=== PATIENT | female | born 1985 | race Caucasian/White ===

== ENCOUNTER 2025-09-05 06:48 | Day surgery (SDC) | payer MEDICAID, SELFPAY ==
[2025-09-05] VITALS (9 sets, daily range): BP systolic 115–142; BP diastolic 53–126; PULSE 68–82; RESP 16; TEMP 36.4–36.8; O2SAT 95–99; BMI 51.2
--- OUTSIDE RECORDS SUMMARY | 2025-09-05 06:56 | XMS RPT_ITS | CCD ---
Author Organization [facility] ion Partnership [facility] Care Team Providers Care Principal Technical Writer Name Role Phone LANE SNOW Admitting Unavailable ELMER CHERRY MD Consulting Unavailable LANE SNOW Attending Unavailable LANE SNOW Primary Care Unavailable PROVIDER, UNKNOWN Consulting Unavailable PROVIDER, UNKNOWN Consulting Unavailable PROVIDER, UNKNOWN Consulting Unavailable Efrem Cherry Primary Care Provider [phone] Efrem Cherry MD Primary Care Provider MISC, PHYSICIAN Attending Unavailable MISC, PHYSICIAN Attending Unavailable MISC, PHYSICIAN Attending Unavailable CAMKLEMAN, TEODORA R Attending Unavailable WINKLEMAN, TEODORA Attending Unavailable CHERRY, ELMER J Referring Unavailable CHERRY, ELMER J Primary Care Unavailable WINKLEMAN, TEODORA Attending Unavailable CHERRY, ELMER J Referring Unavailable CHERRY, ELMER J Primary Care Unavailable WINKLEMAN, TEODORA Attending Unavailable CHERRY, ELMER J Referring Unavailable CHERRY, ELMER J Primary Care Unavailable WINKLEMAN, TEODORA Admitting Unavailable WINKLEMAN, TEODORA Attending Unavailable WINKLEMAN, TEODORA Referring Unavailable CHERRY, ELMER J Primary Care Unavailable WINKLEMAN, TEODORA Attending Unavailable CHERRY, ELMER J Referring Unavailable CHERRY, ELMER J Primary Care Unavailable WINKLEMAN, TEODORA Attending Unavailable CHERRY, ELMER J Referring Unavailable CHERRY, ELMER J Primary Care Unavailable WINKLEMAN, TEODORA Attending Unavailable CHERRY, ELMER J Referring Unavailable CHERRY, ELMER J Primary Care Unavailable WINKLEMAN, TEODORA Attending Unavailable CHERRY, EMLER J Referring Unavailable CHERRY, ELMER J Primary Care Unavailable LESLI HAMM Attending Unavailab LESLI Alcantara Attending Unavailab EFREM Damon Referring Unavailable EFREM CHERRY Primary Care Unavailable Unavailable Primary Care Provider Efrem Martinez MD Primary Care Provider Unavailable Primary Care Provider Unavailabl shayy GARCIA BALL MILL MIXER-C, TYRONE Malave Unavailable Unav ailable UROLOGY, GENERAL Unavailable Unavailable ENT, GENERAL Unavailable Unavailable PODIATRY, GENERAL Unavailable Unavailable [place] Unavailable Unavailable PULMONARY, GENERAL Unavailable Unavailable KRYSTYNA SINGH, Jon ACOSTA Unavailable [phone] Kamla CHERRY MD Unavailable ERICKSON ELI MD Unavailable Trent SPARKS, Chiquis Unavailable Unavailable Geeta David Unavailable Unavailable Leah Hobson Unavailable Unavailable CHRISTIAN MORLEY Unavailable Unavailable DL SPARKS, JOSHUA Unavailable Unavailable Dilip, Joy Blair Unavailable Unavailable SAMEER SAM Unavailable Unavailable DILIP BALL MILL MIXER-BC, ANDRY Webb Unavailable JOCE BALL MILL MIXER-C, STEFANI Unavailable [phone] Unavailable Unavailable DEBRA VENEGAS Referring Unavailable DEBRA VENEGAS Referring Unavailable LESLI HAMM Attending Unavailab Vivek Resendiz Primary Care Unavailable Fabrice Lindsay Referring Unavailable Fabrice Lindsay Attending Unavailable Medications Current Medications Medication Drug Class(es) Dates Sig (Normalized) Sig (Original) albuterol 0.21 mg/ml inhalation solution (20 sources) beta2-Adrenergic Agonist Start: 05-05-2024 End: 05-10-2025 take 1 dose by inhalation every six hours as needed for wheezing Albuterol Sulfate 0.63 mg/3 mL nebulizer solution Indications: Moderate persistent asthma without complication (HCC) INHALE 1 (ONE) vial via NEBULIZER EVERY 6 HOURS NEEDED FOR WHEEZING or SHORTNESS OF BREATH 300 mL 11 05/10/2025 Active Start: 05-05-2023 End: 02-24-2025 take 2 puff(s) by inhalation every six hours as needed for wheezing albuterol HFA (PROVENTIL HFA, VENTOLIN HFA) 90 mcg/actuation inhaler Indications: Moderate persistent asthma without complication (HCC) Inhale 2 Puffs as instructed every 6 hours as needed for wheezing/shortness of breath. 18 g 11 02/24/2025 Active Start: 05-05-2023 End: 05-05-2024 Albuterol Sulfate 0.63 mg/3 mL nebulizer solution Indications: Moderate persistent asthma without complication Use 1 Ampule via nebulizer every 6 hours as needed for wheezing/shortness of breath. 120 mL 05/05/2023 05/05/2024 Discontinued Start: 04-18-2023 End: 05-05-2023 Albuterol Sulfate 0.63 mg/3 mL nebulizer solution Indications: Moderate persistent asthma without complication use 1 vial via nebulizer every 4 hours as needed 150 mL 04/18/2023 05/05/2023 Discontinued Start: 04-18-2023 End: 05-05-2023 take 2 puff(s) by mouth every four hours as needed VENTOLIN HFA 90 mcg/actuation inhaler Indications: Moderate persistent asthma without complication INHALE 2 PUFFS BY MOUTH EVERY 4 HOURS as instructed NEEDED 18 g 04/18/2023 05/05/2023 Discontinued Start: 04-17-2022 take 2 puff(s) by in halation every four hours as needed albuterol HFA (VENTOLIN HFA) 90 mcg/actuation inhaler Indications: Moderate persistent asthma without complication Inhale 2 Puffs as instructed every 4 hours as needed. 18 g 04/17/2022 Active Start: 10-18-2021 End: 04-17-2023 Albuterol Sulfate 0.63 mg/3 mL nebulizer solution Indications: Moderate persistent asthma without complication Use 1 Ampule via nebulizer every 4 hours as needed. 120 mL 04/17/2022 04/17/2023 Active Start: 03-12-2021 Albuterol Sulf ate (2.5 MG/3ML) 0.083% Inhalation Nebulization Solution ; 1 (one) Ampule(s) every four hours, as needed for 30 days Quantity: 30 {Ampule} Refills: 1 Ordered: 12-Mar-2021 EMILY GARCIA Start: 12-Mar-2021 Comments: Medication taken as needed. Start: 03-06-2021 take 2 puff(s) by in halation every four hours as needed albuterol HFA (VENTOLIN HFA) 90 mcg/actuation inhaler Indications: Moderate persistent asthma without complication Inhale 2 Puffs as instructed every 4 hours as needed. 18 g 03/06/2021 Active Start: 02-01-2021 take 2 puff(s) by in halation every four hours as needed Ventolin HFA 108 (90 Base) MCG/ACT Inhalation Aerosol Solution ; 2 (two) Puff every 4 hours as needed for 30 days Quantity: 1 {Inhaler} Refills: 1 Ordered: 01-Feb-2021 CARMENCITAMACKEMILY SARAH TYRONE Malave Start: 01-Feb-2021 Comments: Medication taken as needed. Start: 09-01-2018 End: 10-01-2018 take 2 puff(s) by inhalation every four hours as needed ProAir HFA 108 (90 Base) MCG/ACT Inhalation Aerosol Solution ; 2 (two) Puff(s) every four hours, as needed for 30 days Quantity: 1 {Inhaler} Refills: 0 Ordered: 01-Sep-2018 MD Kamla CHERRY Start: 01-Sep-2018 End: 01-Oct-2018 Status: Inactive Comments: Medication taken as needed. Comment on above: Use 1 Ampule via neb ulizer every 4 hours as needed. Inhale 2 Puffs as in structed every 4 hours as needed. Inhale 2 Puffs as in structed every 6 hours as needed for wheezing/shortness of breath. Use 1 Ampule via neb ulizer every 6 hours as needed for wheezing/shortness of breath. INHALE 2 PUFFS BY MO UTH EVERY 4 HOURS as instructed NEEDED use 1 vial via nebul izer every 4 hours as needed Medication taken as needed. cetirizine hydrochloride 10 mg oral tablet (19 sources) Histamine-1 Receptor Antagonist Start: 3 End: 5 take 1 tablet by mouth once daily cetirizine (ZYRTEC) 10 mg tablet Indications: Allergic rhinitis, unspecified seasonality, unspecified trigger TAKE 1 TABLET BY MOUTH ONCE DAILY 30 tablet 05/10/2025 Active Start: 04-17-2022 take 1 tablet by tamara th once daily cetirizine (ZYRTEC) 10 mg tablet Indications: Allergic rhinitis, unspecified seasonality, unspecified trigger Take 1 tablet by mouth once daily. 30 tablet 04/17/2022 Active Comment on above: Take 1 tablet by tamara th once daily. TAKE 1 TABLET BY TAMARA TH ONCE DAILY fluticasone propionate 0.05 mg/actuat metered dose nasal spray (20 sources) Corticosteroid Start: 3 End: 4 take 1-2 spray(s) nasal route once daily fluticasone (FLONASE) 50 mcg/actuation nasal spray spray 1 to 2 sprays IN EACH NOSTRIL ONCE DAILY 16 g 11 05/05/2024 Active Start: 03-02-2019 End: 07-27-2019 take 2 puff(s) by inhalation twice daily Flovent HFA 110 MCG/ACT Inhalation Aerosol ; 2 (two) Puff Puff two times daily for 0 days Quantity: 1 {Inhaler} Refills: 2 Ordered: 27-Jul-2019 CLARE LIZAMA Start: 02-Mar-2019 End: 27-Jul-2019 Status: Inactive Comment on above: Use 1-2 Sprays in ea ch nostril once daily. fluticasone-umeclidi n-vilanter (TRELEGY ELLIPTA) 200-62.5-25 mcg inhalation powder (11 sources) Start: 5 take 1 puff(s) by inhalation once daily fluticasone-umeclidin -vilanter (TRELEGY ELLIPTA) 200-62.5-25 mcg inhalation powder Indications: Moderate persistent asthma without complication (HCC) Inhale 1 Puff as instructed once daily. 60 Each 02/24/2025 Active Start: 02-24-2025 take 1 puff(s) by inhalation once daily ofikejaeutx-ttkjivybk-hjjiylkz (TRELEGY ELLIPTA) 200-62.5-25 mcg inhalation powder Indications: Moderate persistent asthma without complication Inhale 1 Puff as instructed once daily. 60 Each 02/24/2025 Active Start: 06-15-2024 End: 02-24-2025 take 1 puff(s) by inhalation once daily hogsyckavza-czhdprgzp-cxnzmoan (TRELEGY ELLIPTA) 200-62.5-25 mcg inhalation powder Indications: Moderate persistent asthma without complication Inhale 1 Puff as instructed once daily. 60 Each 06/15/2024 02/24/2025 Discontinued Start: 06-15-2024 take 1 puff(s) by inhalation once daily pdeelaubrmn-gpattgjhg-dtlxqdek (TRELEGY ELLIPTA) 200-62.5-25 mcg inhalation powder Indications: Moderate persistent asthma without complication Inhale 1 Puff as instructed once daily. 60 Each 11 06/15/2024 Active 60 actuat formoterol fumarate 0.005 mg/actuat / mometasone furoate 0.2 mg/actuat metered dose inhaler (4 sources) Corticosteroid, beta2-Adrenergic Agonist Start: 10-18-2021 End: 10-18-2022 mometasone-formoterol (DULERA) 200-5 mcg/actuation inhaler Indications: Moderate persistent asthma without complication Inhale 2 Puffs as instructed twice daily. Rinse with water, gargle, and then expectorate after use. 17.6 g 11 10/18/2021 10/18/2022 Active Comment on above: Inhale 2 Puffs as in structed twice daily. Rinse with water, gargle, and then expectorate after use. methylPREDNISolone 4 mg oral tablet (9 sources) Corticosteroid Start: 03-01-2025 methylPREDNISolone (MEDROL DOSE-PACK) 4 mg Dose-Pack Indications: Moderate persistent asthma without complication (HCC) TAKE BY MOUTH DIRECTED ON PACKAGE 21 tablet 03/01/2025 Active Start: 02-24-2025 End: 03-02-2025 methylPREDNISolone (MEDROL, DESI,) 4 mg Dose-Pack Indications: Moderate persistent asthma without complication (HCC) Use orally as directed. 21 tablet 02/24/2025 03/01/2025 Discontinued montelukast 10 mg oral tablet (20 sources) Leukotriene Receptor Antagonist Start: 02-01-2021 End: 05-10-2025 take 1 tablet by mouth once daily as needed Singulair 10 mg oral tablet ; 1 (one) Tablet Tablet daily as needed for 30 days Quantity: 30 {Tablet} Refills: 12 Ordered: 01-Feb-2021 CLARE LIZAMA Start: 01-Feb-2021 Comments: Medication taken as needed. Comment on above: Take 10 mg by mouth daily at bedtime. Take 1 tablet by tamara th daily at bedtime. TAKE 1 TABLET BY TAMARA TH DAILY AT BEDTIME Medication taken as needed. Nebulizer Device (17 sources) Start: 02-07-2021 Nebulizer Tena ce ; 1 (one) Device prn for 0 days Quantity: 1 {Unspecified} Refills: 0 Ordered: 07-Feb-2021 EMILY GARCIA Start: 07-Feb-2021 Comments: Pt needs MOUTHPIECE ONLY for nebulizer Comment on above: Pt needs MOUTHPIECE ONLY for nebulizer Nebulizer/Tubing/Mo uthpiece Kit (17 sources) Start: 02-07-2021 Nebulizer/Tubi ng/ Mouthpiece Kit ; 1 (one) Kit as needed for 0 days Quantity: 1 Kit Refills: 0 Ordered: 07-Feb-2021 EMILY GARCIA Start: 07-Feb-2021 Comments: Medication taken as needed. Comment on above: Medication taken as needed. SUMAtriptan 25 mg oral tablet (17 sources) Serotonin-1b and Serotonin-1d Receptor Agonist Start: 07-28-2025 Imitrex 25 mg tablet ; 1 (one) at onset of headache Tablet may repeat x1 after two hours, if needed for 0 days Quantity: 9 {Tablet} Refills: 1 Ordered: 28-Jul-2025 EMILY HOBSON Start: 28-Jul-2025 Start: 05-02-2025 Imitrex 25 mg tablet ; 1 (one) at onset of headache Tablet may repeat x1 after two hours, if needed for 0 days Quantity: 9 {Tablet} Refills: 1 Ordered: 02-May-2025 EMILY HOBSON Start: 02-May-2025 Completed/Discontinued Medications Medication Drug Class(es) Dates Sig (Normalized) Sig (Original) acetaminophen 325 mg / butalbital 50 mg / caffeine 40 mg oral tablet (17 sources) Barbiturate, Central Nervous System Stimulant, Methylxanthine Start: 12-31-2010 End: 01-30-2011 take 1 tablet by mouth every two hours, then take 2 tablets by mouth every twenty-four hours FIORICET, 50-325-40MG (Oral Tablet) ; 1 Tablet at onset of Headache. May repeat in 2 hours if headache persists. Max 2 in 24 hours. for 30 days Quantity: 30 {Tablet} Refills: 0 Ordered: 30-Jan-2011 MD Jon GREENWOOD Start: 31-Dec-2010 End: 30-Jan-2011 Status: Inactive acetaminophen 300 mg / codeine phosphate 30 mg oral tablet (17 sources) Opioid Agonist Start: 01-30-2011 End: 02-04-2011 take 1 tablet by mouth every six hours as needed for pain ACETAMINOPHEN-COD EINE #3, 300-30MG (Oral Tablet) ; 1 (one) Tablet every six hours, as needed for pain for 5 days Quantity: 20 {Tablet} Refills: 0 Ordered: 29-May-2012 MD Jon GREENWOOD Start: 30-Jan-2011 End: 04-Feb-2011 Status: Inactive Comments: Medication taken as needed. Comment on above: Medication taken as needed. acetaminophen 500 mg / HYDROcodone bitartrate 5 mg oral tablet (17 sources) Opioid Agonist Start: 08-14-2012 End: 08-21-2012 take 1 tablet by mouth every six hours as needed VICODIN, 5-500MG (Oral Tablet) ; 1 (one) Tablet every six hours, as needed for 7 days Quantity: 28 {Tablet} Refills: 0 Ordered: 04-Nov-2012 MD ERICKSON ELI Start: 14-Aug-2012 End: 21-Aug-2012 Status: Inactive Comments: Medication taken as needed. Comment on above: Medication taken as needed. amoxicillin 875 mg oral tablet (20 sources) Penicillin-class Antibacterial Start: 01-01-2022 End: 01-11-2022 take 1 tablet by mouth twice daily Amoxicillin 875 MG Oral Tablet ; 1 (one) Tablet two times daily for 10 days Quantity: 20 {Tablet} Refills: 0 Ordered: 14-Oct-2022 MD Kamla CHERRY Start: 01-Jan-2022 End: 11-Jan-2022 Status: Inactive Start: 01-05-2019 End: 01-15-2019 take 1 tablet by mouth twice daily Amoxicillin 875 MG Oral Tablet ; 1 (one) Tablet two times daily for 10 days Quantity: 20 {Tablet} Refills: 0 Ordered: 15-Jan-2019 MD Kamla CHERRY Start: 05-Jan-2019 End: 15-Jan-2019 Status: Inactive Start: 02-27-2016 End: 03-05-2016 take 1 capsule by mouth three times daily AMOXICILLIN, 500MG (Oral Capsule) ; 1 (one) Capsule three times daily for 7 days Quantity: 21 {Capsule} Refills: 0 Ordered: 19-Mar-2016 MD Kamla CHERRY Start: 27-Feb-2016 End: 05-Mar-2016 Status: Inactive amoxicillin 875 mg / clavulanate 125 mg oral tablet (17 sources) Penicillin-class Antibacterial Start: 01-12-2019 End: 01-22-2019 take 1 tablet by mouth twice daily Augmentin 875-125 MG Oral Tablet ; 1 (one) Tablet two times daily for 10 days Quantity: 20 {Tablet} Refills: 0 Ordered: 24-Feb-2019 MD Kamla CHERRY Start: 12-Jan-2019 End: 22-Jan-2019 Status: Inactive azithromycin 250 mg oral tablet (20 sources) Macrolide Antimicrobial Start: 12-16-2023 End: 02-24-2025 azithromycin (ZITHROMAX) 250 mg tablet Indications: Moderate persistent asthma without complication Take 2 tabs on the first day, then one tab daily for 4 days. 6 tablet 12/16/2023 02/24/2025 Discontinued Start: 11-27-2018 End: 12-02-2018 Azithromycin 250 MG Oral Tab let ; 2 (two) Tablet on day one, then 1 tablet daily for 4 days for 5 days Quantity: 6 {Tablet} Refills: 0 Ordered: 30-Dec-2018 MD ERICKSON ELI Start: 27-Nov-2018 End: 02-Dec-2018 Status: Inactive Start: 04-11-2017 End: 04-16-2017 Azithromycin 250 MG Oral Tab let ; 2 (two) Tablet on day one, then 1 tablet daily for 4 days for 5 days Quantity: 6 {Tablet} Refills: 0 Ordered: 19-Aug-2017 MD ERICKSON ELI Start: 11-Apr-2017 End: 16-Apr-2017 Status: Inactive 120 actuat budesonide 0.16 mg/actuat / formoterol fumarate 0.0045 mg/actuat metered dose inhaler (17 sources) Corticosteroid, beta2-Adrenergic Agonist Start: 01-12-2019 End: 03-02-2019 take 2 puff(s) by inhalation twice daily Symbicort 160-4.5 MCG/ACT Inhalation Aerosol ; 2 (two) Puff two times daily for 30 days Quantity: 1 {Inhaler} Refills: 2 Ordered: 02-Mar-2019 CLARE LIZAMA Start: 12-Jan-2019 End: 02-Mar-2019 Status: Inactive cefuroxime 500 mg oral tablet (17 sources) Cephalosporin Antibacterial Start: 01-30-2011 End: 02-09-2011 take 1 tablet by mouth twice daily CEFTIN, 500MG (Oral Tablet) ; 1 Tablet bid for 10 days Quantity: 20 {Tablet} Refills: 0 Ordered: 29-May-2012 MD Jon GREENWOOD Start: 30-Jan-2011 End: 09-Feb-2011 Status: Inactive 60 actuat fluticasone propionate 0.25 mg/actuat / salmeterol 0.05 mg/actuat dry powder inhaler (17 sources) Corticosteroid, beta2-Adrenergic Agonist Start: 04-06-2020 End: 05-06-2020 take 1 puff(s) by inhalation twice daily Fluticasone-Salme terol 250-50 MCG/DOSE Inhalation Aerosol Powder Breath Activated ; 1 (one) Puff two times daily for 30 days Quantity: 1 {Inhaler} Refills: 0 Ordered: 09-Jun-2020 EMILY GARCIA Start: 06-Apr-2020 End: 06-May-2020 Status: Inactive 30 actuat fluticasone furoate 0.2 mg/actuat / vilanterol 0.025 mg/actuat dry powder inhaler (9 sources) Corticosteroid, beta2-Adrenergic Agonist Start: 05-05-2024 End: 06-15-2024 take 1 puff(s) by mouth once daily fluticasone-vilan terol (BREO ELLIPTA) 200-25 mcg/dose inhaler Indications: Moderate persistent asthma without complication inhale 1 puff by mouth once daily 60 Each 11 05/05/2024 06/15/2024 Discontinued Start: 05-05-2023 End: 05-05-2024 fluticasone-vilanterol (BREO ELLIPTA) 200-25 mcg/dose inhaler Indications: Moderate persistent asthma without complication Inhale 1 Inhalation as instructed once daily. 60 Each 11 05/05/2023 05/05/2024 Discontinued Start: 04-18-2023 End: 05-05-2023 take 1 puff(s) by mouth once daily fluticasone-vilanterol (BREO ELLIPTA) 200-25 mcg/dose inhaler Indications: Moderate persistent asthma without complication INHALE 1 PUFF BY MOUTH ONCE DAILY as instructed. rinse with water,gargle, and then expectorate after use 60 Each 04/18/2023 05/05/2023 Discontinued Start: 04-17-2022 End: 04-17-2023 fluticasone-vilanterol (BREO ELLIPTA) 200-25 mcg/dose inhaler Indications: Moderate persistent asthma without complication Inhale 1 Inhalation as instructed once daily. Rinse with water, gargle, and then expectorate after use. 60 Each 04/17/2022 04/17/2023 Active Comment on above: Inhale 1 Inhalation as instructed once daily. Rinse with water, gargle, and then expectorate after use. Inhale 1 Inhalation as instructed once daily. INHALE 1 PUFF BY TAMARA TH ONCE DAILY as instructed. rinse with water,gargle, and then expectorate after use levocetirizine dihydrochloride 5 mg oral tablet (4 sources) Histamine-1 Receptor Antagonist Start: 021 take 1 tablet by mouth once daily at bedtime levocetirizine (XYZAL) 5 mg tablet Indications: Allergic rhinitis, unspecified seasonality, unspecified trigger Take 1 tablet by mouth daily at bedtime. 30 tablet 04/17/2021 Active Comment on above: Take 1 tablet by tamara th daily at bedtime. Nebulizer/Adult Mask Kit (17 sources) Start: 017 End: Nebulizer/Adult Mask Kit ; Kit Kit for 0 days Quantity: 1 Kit Refills: 0 Ordered: 19-Aug-2017 CLARE LIZAMA Start: 19-Aug-2017 End: 05-Jan-2019 Status: Discontinued Comments: This order discontinued per [facility]. Comment on above: This order discontin ued per [facility]. ofloxacin 3 mg/ml otic solution (17 sources) Quinolone Antimicrobial Start: 011 End: 011 OFLOXACIN, 0.3% (Otic Solution) ; 10 drops bid in left ear for 7 days Quantity: 1 {bottle} Refills: 0 Ordered: 29-May-2012 MD Jon GREENWOOD Start: 30-Jan-2011 End: 06-Feb-2011 Status: Inactive omeprazole 20 mg delayed release oral capsule (17 sources) Proton Pump Inhibitor Start: 011 End: 012 take 2 capsules by mouth once daily OMEPRAZOLE, 20MG (Oral Capsule Delayed Release) ; 2 (two) Capsule DR daily for 30 days Quantity: 60 {Capsule_DR} Refills: 1 Ordered: 29-May-2012 Start: 31-Dec-2010 End: 29-May-2012 Status: Inactive predniSONE 10 mg oral tablet (19 sources) Start: 022 End: take 4 tablets by mouth once daily, then take 3 tablets by mouth once daily, then take 2 tablets by mouth once daily, then take 1 tablet by mouth once daily predniSONE (DELTASONE) 10 mg tablet Indications: Moderate persistent asthma without complication TAKE 4 TABS P.O. DAILY X 3 DAYS, THEN 3 TABS P.O. DAILY X 3 DAYS, THEN 2 TABS P.O. DAILY X 5 DAYS, THEN 1 TAB P.O. DAILY X 7 DAYS 38 tablet 0 10/30/2022 05/05/2023 Discontinued Start: 11-27-2018 End: 12-09-2018 PredniSONE 10 MG Oral Tablet ; 4 Tablets days 1,2,3; 3 tablets days 4,5,6: 2 tablets days 7,8,9: 1 tablet days 10,11,12 for 12 days Quantity: 30 {Tablet} Refills: 0 Ordered: 30-Dec-2018 MD ERICKSON ELI Start: 27-Nov-2018 End: 09-Dec-2018 Status: Inactive Dispense as Written Comments: Take with food. Comment on above: TAKE 4 TABS P.O. BEATRIS LY X 3 DAYS, THEN 3 TABS P.O. DAILY X 3 DAYS, THEN 2 TABS P.O. DAILY X 5 DAYS, THEN 1 TAB P.O. DAILY X 7 DAYS Take with food. risedronate sodium 35 mg oral tablet (17 sources) Start: 011 End: 011 ACTONEL, 35MG (Oral Tablet) ; error Tab error for 1 days Quantity: 1 {Tab} Refills: 0 Ordered: 30-Jan-2011 MD Jon GREENWOOD Start: 30-Jan-2011 End: 30-Jan-2011 Status: Inactive Comments: Pt was never on this med. Erroneous entry Comment on above: Pt was never on this med. Erroneous entry 10 actuat tiotropium 0.0025 mg/actuat inhalation spray (4 sources) Anticholinergic Start: take 2 puff(s) by inhalation once daily tiotropium bromide (SPIRIVA RESPIMAT) 2.5 mcg/actuation inhaler Indications: Moderate persistent asthma without complication Inhale 2 Puffs as instructed once daily. 1 Each 04/17/2021 Active Comment on above: Inhale 2 Puffs as in structed once daily. 1 ml triamcinolone acetonide 40 mg/ml injection (3 sources) Corticosteroid Start: End: triamcinolone acetonide 80 mg injection (KeNALog 40) Start: 06-15-2024 End: 06-15-2024 triamcinolone acetonide 80 m g injection (KeNALog 40) Start: 05-05-2023 End: 05-05-2023 triamcinolone acetonide 80 m g injection (KeNALog 40) Problems Active Problems Problem Classification Problem Date Documented Date Episodic/Chronic Abdominal pain (20 sources) Abdominal pain; Translations: [Unspecified abdominal pain] 01-27-2018 Episodic Acute bronchitis (17 sources) Acute bronchitis; Translations: [Acute bronchitis, unspecified] 04-11-2017 Episodic Administrative/social admission (20 sources) Patient encounter status; Translations: [Counseling, unspecified] 11-27-2018 Episodic Asthma (20 sources) Uncomplicated moderate persistent asthma; Translations: [Moderate persistent asthma, uncomplicated] Onset: 02-24-2025 Chronic Bautista (17 sources) Blisters, epidermal loss [second degree] of lower limb [leg], unspecified site 05-29-2012 Episodic Diseases of mouth; excluding dental (20 sources) Disorder of uvula of palate; Translations: [Unspecified lesions of oral mucosa] 05-02-2025 Episodic Genitourinary symptoms and ill-defined conditions (20 sources) Urinary incontinence; Translations: [Unspecified urinary incontinence] 02-11-2023 Chronic Genitourinary symptoms and ill-defined conditions (20 sources) Microscopic hematuria; Translations: [Other microscopic hematuria] 01-13-2018 Episodic Headache; including migraine (20 sources) Migraine; Translations: [Migraine, unspecified, not intractable, without status migrainosus] 05-02-2025 Chronic Headache; including migraine (17 sources) Headache; Translations: [Headache] 11-19-2010 Episodic Malaise and fatigue (20 sources) Fatigue; Translations: [Other fatigue] 05-02-2025 Episodic Menstrual disorders (17 sources) Amenorrhea; Translations: [Amenorrhea, unspecified] 01-27-2018 Chronic Other aftercare (20 sources) Long-term (current) use of other medications 11-04-2012 Episodic Other connective tissue disease (20 sources) Plantar fasciitis of right foot; Translations: [Plantar fascial fibromatosis] 02-11-2023 Episodic Other ear and sense organ disorders (17 sources) Infective otitis externa, unspecified 01-30-2011 Episodic Other nervous system disorders (1 source) Other chronic pain; Translations: [Other chronic pain] Onset: 03-03-2023 Chronic Other nutritional; endocrine; and metabolic disorders (20 sources) Body mass index 40+ - severely obese; Translations: [Morbid (severe) obesity due to excess calories] Onset: 03-06-2021 03-06-2021 Chronic Other upper respiratory disease (20 sources) Allergic rhinitis; Translations: [Allergic rhinitis, unspecified] Onset: 03-06-2021 03-06-2021 Chronic Other upper respiratory disease (20 sources) Seasonal allergy; Translations: [Other seasonal allergic rhinitis] 02-11-2023 Chronic Other upper respiratory disease (20 sources) Nasal congestion; Translations: [Nasal congestion] 02-11-2023 Episodic Other upper respiratory infections (20 sources) Bacterial sinusitis; Translations: [Chronic sinusitis, unspecified] 01-01-2022 Chronic Other upper respiratory infections (17 sources) Sore throat symptom; Translations: [Acute pharyngitis, unspecified] 02-27-2016 Episodic Otitis media and related conditions (17 sources) Unspecified otitis media 01-30-2011 Episodic Pneumonia (except that caused by tuberculosis or sexually transmitted disease) (20 sources) Community acquired pneumonia; Translations: [Pneumonia, unspecified organism] 01-05-2019 Episodic Residual codes; unclassified (20 sources) Overweight; Translations: [Other specified conditions influencing health status] 02-11-2023 Episodic Spondylosis; intervertebral disc disorders; other back problems (20 sources) Backache, unspecified 08-14-2012 Episodic Substance-related disorders (17 sources) Smoker; Translations: [Nicotine dependence, unspecified, uncomplicated] 07-27-2019 Chronic Unclassified (1 source) M72.2 Onset: 02-19-2023 Unclassified (17 sources) LAB DRAW - The labs drawn today include: CMP and Lipid Panel. The lab was drawn from the left antecubital vein. The lab was ordered by Dr. Cherry. 02-02-2018 Unclassified (17 sources) Amenorrhea, Secondary - The last menstrual period began 10/17/2017. 01-27-2018 Unclassified (1 source) ABN MAMMOGRAM Onset: 04-06-2025 Past or Other Problems Problem Classification Problem Date Documented Date Episodic/Chronic Asthma (20 sources) Asthma 01-18-2020 Other connective tissue disease (1 source) Plantar fascial fibromatosis; Translations: [Plantar fascial fibromatosis] Onset: 12-23-2022 Episodic Other connective tissue disease (1 source) Calcaneal spur, right foot; Translations: [Calcaneal spur, right foot] Onset: 12-23-2022 Episodic Other connective tissue disease (1 source) Pain in right foot; Translations: [Pain in right foot] Onset: 12-23-2022 Episodic Other lower respiratory disease (20 sources) Dyspnea on exertion; Translations: [Dyspnea, unspecified] Onset: 04-17-2021 04-17-2021 Episodic Other screening for suspected conditions (not mental disorders or infectious disease) (18 sources) Cancer cervix screening status; Translations: [Encounter for screening for malignant neoplasm of cervix] Onset: 02-24-2025 01-27-2018 Episodic Pneumonia (except that caused by tuberculosis or sexually transmitted disease) (17 sources) Pneumonia (except that caused by tuberculosis or sexually transmitted disease) 01-05-2019 Screening and history of mental health and substance abuse codes (20 sources) Ex-tobacco user; Translations: [Personal history of nicotine dependence] Onset: 03-06-2021 03-06-2021 Episodic Unclassified (1 source) RIGHT FOOT PAIN, LARGE BONE SPUR IN HEEL Onset: 02-25-2022 Unclassified (13 sources) something on her uvula 05-02-2025 Unclassified (13 sources) [ADDITIONAL REASON] Fatigue - Onset was 6 month(s) ago. The symptoms occur constantly. The patient describes this as moderate in severity and unchanged. Associated symptoms include headache. Note for Fatigue: She states she has no energy, just overall doesn't feel well. Gets dizziness frequently and is just tired of it. 05-02-2025 Unclassified (17 sources) Preoperative evaluation - Surgical procedures include: other (Right foot open planter fasciectomy). Date of procedure: (02/19/2023) . Note for Preoperative evaluation: [facility] practicing in [place] - Dr. Teodora Avila 02-11-2023 Unclassified (17 sources) Sinus headaches - Note for Sinus headaches: Pt started 2 months ago with a green snotty nose that never cleared up. Tested negative for covid a month ago. A cough started friday. Has also had green mucous, head ache, dizziness, and body aches yesterday. has 101.0 fever today. usually a little SOB due to having asthma. 01-01-2022 Unclassified (17 sources) Asthma, Follow-up - The patient's long-term asthma pattern may be classified as moderate persistent. The last clinic visit was 9 month(s) ago. Symptoms include wheezing, chest tightness and shortness of breath. Associated symptoms include allergy symptoms (Caring for mother who has animals in the home.). Note for Follow-up for asthma: Pt. would like to discuss her singulair. She has not been taking it regularly. 02-01-2021 Unclassified (17 sources) Seasonal allergic rhinitis - The seasonal allergic rhinitis has been occurring for 6 months. The course has been increasing. The seasonal allergic rhinitis is described as moderate. Note for Seasonal allergic rhinitis: Pt. has been outside doing work and she has animals outside as well. She has seasonal allergies and now has runny nose, congestion and headaches. She denies fever. She has been using her nebulizer albuterol and needs refills. 04-06-2020 Unclassified (17 sources) Asthma, Follow-up - The patient's long-term asthma pattern may be classified as intermittent. Symptoms do not include wheezing. Note for Follow-up for asthma: Pt states allergies are flaring up - runny nose, sore throat from drainage. Plans to stop smoking. Needs albuterol refill for nebulizer which she uses w/ some releif intermittantly. 07-27-2019 Unclassified (17 sources) cough - The cough has been occurring for 1 month. The course has been recurrent. The cough is characterized as productive of purulent sputum. The amount of sputum produced is scanty. The symptoms are aggravated by supine posture. The symptoms have been associated with chest pain, dyspnea, hoarseness, runny nose and sore throat, while the symptoms have not been associated with fever. Note for cough: Pt. also has ear pain. 11-27-2018 Unclassified (17 sources) !Patient notification of lab results - Dilip. Note for !Patient notification of lab results : Raine, your pap smear was normal. 02-06-2018 Unclassified (17 sources) !Patient notification of lab results - Dilip. Note for !Patient notification of lab results : Raine, all your lab work looks very good. Let us know if you have any questions. 02-03-2018 Unclassified (17 sources) Physical examination - The patient is here for a annual physical.Her last menstrual period date was 10/17/2017. 01-27-2018 Unclassified (11 sources) Urinary incontinence - The urinary incontinence has been occurring for 1 year. Note for Urinary incontinence: Pt states 1 year history of urinary incontinence - no urge to urinate prior to occurance. Occurs almost daily. Can happen at any time - laying down, walking. 01-13-2018 Unclassified (11 sources) [ADDITIONAL REASON] Abdominal Pain, Female - Symptoms include abdominal pain. The pain is located in the right lower quadrant. The patient describes the pain as sharp and burning. Note for Abdominal pain: Pt states pain more frequent. Last menses 10/17/2017. Last child born 02/12/2016. No PAP since. 01-13-2018 Unclassified (17 sources) Asthma, Follow-up - Symptoms include productive cough (yellow). Symptoms are exacerbated by lying down. Associated symptoms include upper respiratory infection symptoms (clear) and allergy symptoms. Note for Follow-up for asthma: Needs refill Advair inhaler and albuterol. 04-11-2017 Unclassified (17 sources) sore throat - The sore throat has been occurring for 1 day. The symptoms have been associated with cough. Note for sore throat: Cold for the past couple of weeks. 02-27-2016 Unclassified (17 sources) !Patient notification of lab results 1 - Dr. Eli. The test(s) that you had done were/was a urine culture. The results of your testing were normal (no infection) . 08-10-2012 Unclassified (6 sources) Back Pain - This condition occurred without any known injury. Symptoms are located in the midline lower back. Onset was 2 month(s) ago. Associated symptoms include abdominal pain and leg weakness. Note for Back pain: Was going to chiropractor. Quit going for now. 08-07-2012 Unclassified (16 sources) [ADDITIONAL REASON] Pain on intercourse - The pain on intercourse has been occurring for 1 month. The symptoms have been associated with dysuria, while the symptoms have not been associated with constipation, diarrhea, vaginal bleeding or vaginal discharge. 08-07-2012 Unclassified (17 sources) Bautista - The bautista have been present for 3 days. The bautista are located on the right hand and right thigh. The bautista were caused by hot liquid (grease at work). The symptoms have been associated with pain. Note for Bautista: . 05-29-2012 Unclassified (17 sources) Ear pain - The pain has been occurring for 1 day. The symptoms have been associated with purulent discharge from ear and sinus problems. 01-30-2011 Unclassified (17 sources) Abdominal pain - The onset of the pain has been acute and has been occurring in an intermittent pattern for 1 month. The course has been recurrent. The pain is described as a severe stabbing. The pain is described as being located in the upper abdomen (greater on left side.). The pain radiates to the back. The symptoms have no aggravating factors. The symptoms have no relieving factors. The symptoms have been associated with vaginal bleeding (had for 3 weeks then had spotting. has a periguard-it is in place per dr campbell-social service worker who checked in on 12-27-10.), while the symptoms have not been associated with abdominal distention, bloating, bloody stools, bulky stools, constipation, dark urine, diarrhea, dysuria, fever, nausea or vomiting. Note for Abdominal pain: social service worker doc sent urine to lab-should be back today per pt. is still having headaches. 12-31-2010 Unclassified (17 sources) Headache - The onset of the headache has been sudden and has been occurring in an episodic pattern for 3 weeks. Each episode lasts 2 hours. The course has been recurrent. The headache is characterized as severe and pounding. The headache is described as being located in the temporal area. The symptoms have been associated with blurring of vision and vertigo. Note for Headache: also has pain in back when has headache. is not having a headache at this time. last one was yesterday. 12-20-2010 Unclassified (14 sources) !Patient notification of lab results - Stefani DIAZ. The test(s) that you had done were/was an iron level and B12 level, an A1C (three month sugar average), a CBC (checks for anemia and infection), a CMP (kidneys, liver, nutrition, sugar) and a TSH (thyroid). You should call our office if you have any questions. Note for !Patient notification of lab results : Everything came back normal except your B12 was low. I recommend purchasing Vitamin B12 over the counter and start taking it daily. You can start with 2000 mcg daily 05-04-2025 Unclassified (11 sources) [ADDITIONAL REASON] Back Pain - This condition occurred without any known injury. Symptoms are located in the midline lower back. Onset was 2 month(s) ago. Associated symptoms include abdominal pain and leg weakness. Note for Back pain: Was going to chiropractor. Quit going for now. 08-07-2012 Unclassified (6 sources) Abdominal Pain, Female - Symptoms include abdominal pain. The pain is located in the right lower quadrant. The patient describes the pain as sharp and burning. Note for Abdominal pain: Pt states pain more frequent. Last menses 10/17/2017. Last child born 02/12/2016. No PAP since. 01-13-2018 Unclassified (6 sources) [ADDITIONAL REASON] Urinary incontinence - The urinary incontinence has been occurring for 1 year. Note for Urinary incontinence: Pt states 1 year history of urinary incontinence - no urge to urinate prior to occurance. Occurs almost daily. Can happen at any time - laying down, walking. 01-13-2018 Unclassified (4 sources) Fatigue - Onset was 6 month(s) ago. The symptoms occur constantly. The patient describes this as moderate in severity and unchanged. Associated symptoms include headache. Note for Fatigue: She states she has no energy, just overall doesn't feel well. Gets dizziness frequently and is just tired of it. 05-05-2025 Unclassified (4 sources) [ADDITIONAL REASON] something on her uvula 05-05-2025 Unclassified (1 source) Pain on intercourse - The pain on intercourse has been occurring for 1 month. The symptoms have been associated with dysuria, while the symptoms have not been associated with constipation, diarrhea, vaginal bleeding or vaginal discharge. 08-07-2012 Results Test Name Value Interpretation Reference Range Facility [facility] RAINE SOLOMON ([id number]) 1985 F Date Time Provider Department 08/19/25 [facility] During your visit today, we recorded the following information about you: Elida Carpenter MA 08/19/2025 7:44 AM Signed Prior authorization has been submitted for Albuterol neb via [facility]. Elida Carpenter MA Allergies As of Date: 08/19/2025 (No Known Allergies) Date Reviewed: 02/24/2025 Reviewed by: nAne Petty OCCA - Fully Assessed Reason for Visit: Insurance Authorization [[id number]] Cmt: Albuterol neb Prescriptions as of 08/19/2025 - montelukast (SINGULAIR) 10 mg tablet TAKE 1 TABLET BY MOUTH EVERY NIGHT AT BEDTIME - cetirizine (ZYRTEC) 10 mg tablet TAKE 1 TABLET BY MOUTH ONCE DAILY - Albuterol Sulfate 0.63 mg/3 mL nebulizer solution INHALE 1 (ONE) vial via NEBULIZER EVERY 6 HOURS NEEDED FOR WHEEZING or SHORTNESS OF BREATH - methylPREDNISolone (MEDROL DOSE-PACK) 4 mg Dose-Pack TAKE BY MOUTH DIRECTED ON PACKAGE - albuterol HFA (PROVENTIL HFA, VENTOLIN HFA) 90 mcg/actuation inhaler Inhale 2 Puffs as instructed every 6 hours as needed for wheezing/shortness of breath. - yotxktcizkl-grprnzoqi-xavhc ter (TRELEGY ELLIPTA) 200-62.5-25 mcg inhalation powder Inhale 1 Puff as instructed once daily. - fluticasone (FLONASE) 50 mcg/actuation nasal spray spray 1 to 2 sprays IN EACH NOSTRIL ONCE DAILY Problem List As Of Date 08/19/2025 Noted Resolved Allergic rhinitis [J30.9] 03/06/2021 Former tobacco use [Z87.891] 03/06/2021 Obesity, Class III, BMI >= 40 [E66.813] 03/06/2021 LAGOS (dyspnea on exertion) [R06.09] 04/17/2021 Encounter Status:Closed by ELIDA CARPENTER on 08/19/25 [facility] No Panel Informationon 07-28 [employer]. No Panel Informationon 07-07 [employer]. No Panel Informationon 07-06 [employer] Dorcas [facility]-2025 [facility]N [facility] RAINE SOLOMON ([id number]) 1985 F Date Time Provider Department 06/24/[address] During your visit today, we recorded the following information about you: Inder Rojas OCCA 06/24/2025 10:11 AM Signed Status Sent to Plan today via [facility] Mary Jane Ramos 200-62.5-25MCG/ACT aerosol powder Inder Rojas OCCA 06/24/2025 10:13 AM Signed Outcome Approved today by [place] [employer] 2017 Your PA request for [id number] was approved for 365 days. The PA# assigned is [id number]. Effective Date: 06/24/2025 Authorization Expiration Date: 06/23/2026 Allergies As of Date: 06/24/2025 (No Known Allergies) Date Reviewed: 02/24/2025 Reviewed by: Anne Petty OCCA - Fully Assessed Reason for Visit: Biometrics Consultant - Other [[id number]] Cmt: Home WATERS Prescriptions as of 06/24/2025 - montelukast (SINGULAIR) 10 mg tablet TAKE 1 TABLET BY MOUTH EVERY NIGHT AT BEDTIME - cetirizine (ZYRTEC) 10 mg tablet TAKE 1 TABLET BY MOUTH ONCE DAILY - Albuterol Sulfate 0.63 mg/3 mL nebulizer solution INHALE 1 (ONE) vial via NEBULIZER EVERY 6 HOURS NEEDED FOR WHEEZING or SHORTNESS OF BREATH - methylPREDNISolone (MEDROL DOSE-PACK) 4 mg Dose-Pack TAKE BY MOUTH DIRECTED ON PACKAGE - albuterol HFA (PROVENTIL HFA, VENTOLIN HFA) 90 mcg/actuation inhaler Inhale 2 Puffs as instructed every 6 hours as needed for wheezing/shortness of breath. - modqgslgbnt-xlayeloio-srqnv ter (TRELEGY ELLIPTA) 200-62.5-25 mcg inhalation powder Inhale 1 Puff as instructed once daily. - fluticasone (FLONASE) 50 mcg/actuation nasal spray spray 1 to 2 sprays IN EACH NOSTRIL ONCE DAILY Problem List As Of Date 06/24/2025 Noted Resolved Allergic rhinitis [J30.9] 03/06/2021 Former tobacco use [Z87.891] 03/06/2021 Obesity, Class III, BMI >= 40 [E66.813] 03/06/2021 LAGOS (dyspnea on exertion) [R06.09] 04/17/2021 Encounter Status:Closed by INDER ROJAS on 06/24/25 [facility] REINALDO Telephone (EVELYN Kirkpatrick) JUANITORAINE ([id number]) 1985 F Date Time Provider Department 06/24/25 LESLI HAMM During your visit today, we recorded the following information about you: Anne Petty OCCA 06/24/2025 9:55 AM Signed Patient called in stating she needs a refill on her trelegy but the pharmacy stated it needs a prior auth. Please advise. Inder Rojas OCCA 06/24/2025 10:12 AM Signed Refills were sent in January with 11 refills PA submitted Allergies As of Date: 06/24/2025 (No Known Allergies) Date Reviewed: 02/24/2025 Reviewed by: Anne Petty OCCA - Fully Assessed Reason for Visit: Patient Question [[id number]] Prescriptions as of 06/24/2025 - montelukast (SINGULAIR) 10 mg tablet TAKE 1 TABLET BY MOUTH EVERY NIGHT AT BEDTIME - cetirizine (ZYRTEC) 10 mg tablet TAKE 1 TABLET BY MOUTH ONCE DAILY - Albuterol Sulfate 0.63 mg/3 mL nebulizer solution INHALE 1 (ONE) vial via NEBULIZER EVERY 6 HOURS NEEDED FOR WHEEZING or SHORTNESS OF BREATH - methylPREDNISolone (MEDROL DOSE-PACK) 4 mg Dose-Pack TAKE BY MOUTH DIRECTED ON PACKAGE - albuterol HFA (PROVENTIL HFA, VENTOLIN HFA) 90 mcg/actuation inhaler Inhale 2 Puffs as instructed every 6 hours as needed for wheezing/shortness of breath. - upeeovxgbrw-xzubowhsm-twykh ter (TRELEGY ELLIPTA) 200-62.5-25 mcg inhalation powder Inhale 1 Puff as instructed once daily. - fluticasone (FLONASE) 50 mcg/actuation nasal spray spray 1 to 2 sprays IN EACH NOSTRIL ONCE DAILY Problem List As Of Date 06/24/2025 Noted Resolved Allergic rhinitis [J30.9] 03/06/2021 Former tobacco use [Z87.891] 03/06/2021 Obesity, Class III, BMI >= 40 [E66.813] 03/06/2021 LAGOS (dyspnea on exertion) [R06.09] 04/17/2021 Encounter Status:Closed by INDER ROJAS on 06/24/25 [facility] No Panel Informationon 05-05 [facility], [facility].; [facility], [facility].; [facility], [facility]. No Panel Informationon 05-04 [facility].; [facility], [facility].; [facility], [facility].; [facility], [facility] Center[facility] HospitalPlayed.; [facility], [employer]. Laboratory - Chemistry and C hemistry - challengeon 05-02-2025 Albumin [Mass/Vol] 4.4 g/dL Normal 3.9 - 4.9 g/dL [facility] / [facility] [facility].; [facility] ALP [Catalytic activity/Vol] 87 U/L Normal 44 - 121 [iU]/L [facility] / [facility].; [facility] ALT [Catalytic activity/Vol] 19 U/L Normal 0 - 32 [iU]/L [facility] / [facility].; [facility] AST [Catalytic activity/Vol] 15 U/L Normal 0 - 40 [iU]/L [facility] / [facility].; [facility] Bilirubin [Mass/Vol] 0.2 mg/dL Normal 0.0 - 1.2 mg/dL [facility] / [facility].; [facility] Calcium [Mass/Vol] 9.3 mg/dL Normal 8.7 - 10. 2 mg/dL [facility], [facility].; [facility] Chloride [Moles/Vol] 104 mmol/L Normal 96 - 106 mmol/L [facility] / [facility].; [facility] CO2 [Moles/Vol] 21 mmol/L Normal 20 - 29 mmol/L [facility]; [facility] Cobalamin (Vitamin B12) [Mass/Vol] 205 pg/mL Abnormal 232 - 1245 pg/mL [facility]; [facility] Creatinine [Mass/Vol] 0.72 mg/dL Normal 0.57 - 1.00 mg/dL [facility]; [facility] GFR/1.73 sq M.predicted among non-blacks MDRD (S/P/Bld) [Vol rate/Area] 109 mL/min/{1.73_m2} Normal [facility]; [facility] Globulin (S) [Mass/Vol] 2.4 g/dL Normal 1.5 - 4.5 g/dL [facility]; [facility] Glucose [Mass/Vol] 96 mg/dL Normal 70 - 99 mg/dL [facility]; [facility] Iron [Mass/Vol] 59 ug/dL Normal 27 - 159 ug/dL [facility]; [facility]. Potassium [Moles/Vol] 4.3 mmol/L Normal 3.5 - 5.2 mmol/L [facility]; [facility] Protein [Mass/Vol] 6.8 g/dL Normal 6.0 - 8.5 g/dL [facility]; [facility] Sodium [Moles/Vol] 139 mmol/L Normal 134 - 144 mmol/L [facility]; [facility]. TSH Qn 1.870 {uIU/mL} Normal 0.450 - 4.500 {uIU/mL} [facility]; [facility] Urea nitrogen [Mass/Vol] 12 mg/dL Normal 6 - 20 mg/dL [facility].; [facility] Urea nitrogen/Creatinine [Mass ratio] 17 mg/mg Normal 9 - 23 [facility]; [facility] Laboratory - Hematology and Cell countson 05-02-2025 Basophils (Bld) [#/Vol] 0.1 10*3/uL Normal 0.0 - 0.2 {x10E3/uL} [facility].; [facility], [facility] Basophils/100 WBC (Bld) 1 % Normal [facility]; [facility] Eosinophils (Bld) [#/Vol] 0.5 10*3/uL Abnormal 0.0 - 0.4 {x10E3/uL} [facility].; [facility] Eosinophils/100 WBC (Bld) 5 % Normal [facility]; [facility] Erythrocyte distribution width (RBC) [Ratio] 13.8 % Normal 11.7 - 15.4 % [facility].; [facility], [facility] HbA1c (Bld) [Mass fraction] 5.4 % Normal 4.8 - 5.6 % [facility].; [facility], [facility] Hematocrit (Bld) [Volume fraction] 45.3 % Normal 34.0 - 46.6 % [facility].; [facility], [facility] Hemoglobin (Bld) [Mass/Vol] 14.9 g/dL Normal 11.1 - 15.9 g/dL [facility].; [facility], [facility] Immature granulocytes (Bld) [#/Vol] 0.1 10*3/uL Normal 0.0 - 0.1 {x10E3/uL} [facility].; [facility] Immature granulocytes/100 WBC (Bld) 1 % Normal [facility].; [facility] Lymphocytes (Bld) [#/Vol] 2.8 10*3/uL Normal 0.7 - 3.1 {x10E3/uL} [facility], [facility].; [facility] Lymphocytes/100 WBC (Bld) 29 % Normal [facility].; [facility] MCH (RBC) [Entitic mass] 29.2 pg Normal 26.6 - 33.0 pg [facility], [facility].; [facility], [facility]. MCHC (RBC) [Mass/Vol] 32.9 g/dL Normal 31.5 - 35.7 g/dL [facility], [facility].; [facility] MCV (RBC) [Entitic vol] 89 fL Normal 79 - 97 fL [facility].; [facility] Monocytes (Bld) [#/Vol] 0.7 10*3/uL Normal 0.1 - 0.9 {x10E3/uL} [facility], [facility].; [facility] Monocytes/100 WBC (Bld) 7 % Normal [facility], [facility].; [facility] Neutrophils (Bld) [#/Vol] 5.8 10*3/uL Normal 1.4 - 7.0 {x10E3/uL} [facility], [facility].; [facility] Neutrophils/100 WBC (Bld) 57 % Normal [facility].; [facility] Platelets (Bld) [#/Vol] 342 10*3/uL Normal 150 - 450 {x10E3/uL} [facility] RBC (Bld) [#/Vol] 5.10 10*6/uL Normal 3.77 - 5.2 8 {x10E6/uL} [facility] [employer] WBC (Bld) [#/Vol] 9.9 10*3/uL Normal 3.4 - 10.8 {x10E3/uL} [facility]. No Panel Informationon 05-02 [facility]. [facility].; [facility]. DBT Breast - right diagnosti c for implanton 04-06-2025 IMPRESSION: There is no evidence of malignancy in the right breast. Return to annual screening mammogram is recommended. Annual mammogram will be due in 11 months. BI-RADS Category 1: Negative RISK: Based on the Tyrer-Cuzick (TC) risk assessment model, this patient has a 7.4% lifetime risk of developing breast cancer, meaning they are at average risk for developing breast cancer. However, this is only an estimate based on available history provided on the patient's questionnaire. We encourage all patients to talk with their providers about these results, further recommendations for managing breast health, and appropriate supplemental screening options if the patient has dense breast tissue. Interpreting Radiologist: Hermelinda Trevino M.D. Electronically signed on: 04/06/2025 Assistant Store Manager Trainee: DAMON Transcribe Date/Time: Apr 06 2025 9:09A Dictated by : HERMELINDA TREVINO MD This examination was interpreted and the report reviewed and electronically signed by: HERMELINDA TREVINO MD on Apr 06 2025 10:10AM [facility] * * *Final Report* * * DATE OF EXAM: Apr 06 2025 9:20AM ROGER 0629 - LES DAGO SIMMONS RT / PROCEDURE REASON: ABN MAMMO * * * * Physician Interpretation * * * * [place] [id number] #[id number] - LES DIAG W TROY RT HISTORY: 39 year-old patient seen for diagnostic evaluation of the finding(s) described on prior mammogram in the right breast. Patient states no personal history of breast cancer. COMPARISON STUDIES: The present examination has been compared to a prior imaging study dated 02/24/2025 (mammogram). MAMMOGRAM TECHNIQUE: The study was acquired using full field digital technology and interpreted from soft copy. Digital Breast Tomosynthesis (DBT) images were obtained and used to assist in the interpretation of this examination. MAMMOGRAM FINDINGS: There are scattered areas of fibroglandular density. Previously described asymmetry in the subareolar tissue of the right breast does not persist on today's exam, and presumably represents normal fibroglandular tissue. [facility] RAD Provider, Monique Carlos g [place] - 04/06/2025 * * *Final Report* * * DATE OF EXAM: Apr 06 2025 9:20AM UDW 0629 - LES DIAG W TROY RT / PROCEDURE REASON: ABN MAMMO * * * * Physician Interpretation * * * * [place] [address] #[id number] - LES DIAG W TROY RT HISTORY: 39 year-old patient seen for diagnostic evaluation of the finding(s) described on prior mammogram in the right breast. Patient states no personal history of breast cancer. COMPARISON STUDIES: The present examination has been compared to a prior imaging study dated 02/24/2025 (mammogram). MAMMOGRAM TECHNIQUE: The study was acquired using full field digital technology and interpreted from soft copy. Digital Breast Tomosynthesis (DBT) images were obtained and used to assist in the interpretation of this examination. MAMMOGRAM FINDINGS: There are scattered areas of fibroglandular density. Previously described asymmetry in the subareolar tissue of the right breast does not persist on today's exam, and presumably represents normal fibroglandular tissue. IMPRESSION IMPRESSION: There is no evidence of malignancy in the right breast. Return to annual screening mammogram is recommended. Annual mammogram will be due in 11 months. BI-RADS Category 1: Negative RISK: Based on the Tyrer-Cuzick (TC) risk assessment model, this patient has a 7.4% lifetime risk of developing breast cancer, meaning they are at average risk for developing breast cancer. However, this is only an estimate based on available history provided on the patient's questionnaire. We encourage all patients to talk with their providers about these results, further recommendations for managing breast health, and appropriate supplemental screening options if the patient has dense breast tissue. Interpreting Radiologist: Hermelinda Trevino M.D. Electronically signed on: 04/06/2025 Assistant Store Manager Trainee: DAMON Transcribe Date/Time: Apr 06 2025 9:09A Dictated by : HERMELINDA TREVINO MD This examination was interpreted and the report reviewed and electronically signed by: HERMELINDA TREVINO MD on Apr 06 2025 10:10AM EST [facility] Radiology Study observation (narrative) [facility] DBT Breast - right diagnosti c for implantOrdered By: [facility] Provider on 04-06-2025 [facility] LES DIAG W TROY RTon 025 LES DIAG W TROY RT * * *Final Report* * * DATE OF EXAM: Apr 06 2025 9:20AM UDW 0629 - LES DIAG W TROY RT / PROCEDURE REASON: ABN MAMMO * * * * Physician Interpretation * * * * [place] [address] #[id number] - LES DIAG W TRYO RT HISTORY: 39 year-old patient seen for diagnostic evaluation of the finding(s) described on prior mammogram in the right breast. Patient states no personal history of breast cancer. COMPARISON STUDIES: The present examination has been compared to a prior imaging study dated 02/24/2025 (mammogram). MAMMOGRAM TECHNIQUE: The study was acquired using full field digital technology and interpreted from soft copy. Digital Breast Tomosynthesis (DBT) images were obtained and used to assist in the interpretation of this examination. MAMMOGRAM FINDINGS: There are scattered areas of fibroglandular density. Previously described asymmetry in the subareolar tissue of the right breast does not persist on today's exam, and presumably represents normal fibroglandular tissue. IMPRESSION: There is no evidence of malignancy in the right breast. Return to annual screening mammogram is recommended. Annual mammogram will be due in 11 months. BI-RADS Category 1: Negative RISK: Based on the Tyrer-Cuzick (TC) risk assessment model, this patient has a 7.4% lifetime risk of developing breast cancer, meaning they are at average risk for developing breast cancer. However, this is only an estimate based on available history provided on the patient's questionnaire. We encourage all patients to talk with their providers about these results, further recommendations for managing breast health, and appropriate supplemental screening options if the patient has dense breast tissue. Interpreting Radiologist: Hermelinda Trevino M.D. Electronically signed on: 04/06/2025 Assistant Store Manager Trainee: DAMON Transcribe Date/Time: Apr 06 2025 9:09A Dictated by : HERMELINDA TREVINO MD This examination was interpreted and the report reviewed and electronically signed by: HERMELINDA TREVINO MD on Apr 06 2025 10:10AM EST [id number] [facility] CNOVon 02-24-2025 CNOV Office Visit (PULMDO VNEW) RAINE SOLOMON ([id number]) 1985 F Date Time Provider Department 02/24/25 10:00 AM LESLI HAMMOVNEKaya During your visit today, we recorded the following information about you: Pulse Blood pressure Weight Height 68/minute 123/82 122.5 kg 1.575 m Lesli Hamm APRN.CNP 02/24/2025 10:31 AM Signed Continue with the current medications. I sent a medrol dose pack -- if you aren't feeling better after this call. I can look at making changes to your inhaler. Call if there is any changes and you need to be seen earlier. Lesli Hamm APRN.CNP 02/24/2025 10:36 AM Signed [facility] Department of Pulmonary AND Sleep Medicine Lesli Hamm APRN.CNP Pulmonary Progress Note REFERRING PROVIDER: No ref. provider found Raine Solomon is a 39 year old female who is returning for follow up evaluation of asthma and shortness of breath. History of Illness Since Last Visit: As any recent hospitalizations or ED visits with respiratory complaints. She continues with Trelegy, does admit to missing days here and there. Encouraged to take consistently. She does feel she has had worsening dyspnea, chest tightness/wheezing over the last month. She is using her albuterol more for symptom relief. She denies any complaints of cough, fever, or chills. She does complain of worsening allergy symptoms with clear rhinitis. Overall, she does feel like Trelegy is working well for her and would like to continue this medication. Will add a Medrol Dosepak for worsening allergy symptoms. HISTORY PAST MEDICAL HISTORY Diagnosis Date Amenorrhea Asthma Seasonal allergies Smoker PAST SURGICAL HISTORY Procedure Laterality Date DANDC, DIAG AND/OR THERAPEUTIC FOOT SURGERY HX Right Plantar fascia LIGATE FALLOPIAN TUBE PAST SURGICAL HISTORY OF Thumb Surgery TONSILLECTOMY AND ADENOIDECTOMY HX Social History Tobacco Use Smoking status: Former Current packs/day: 0.00 Average packs/day: 1 pack/day for 10.0 years (10.0 ttl pk-yrs) Types: Cigarettes Start date: 11/30/2009 Quit date: 11/30/2019 Years since quittin.2 Smokeless tobacco: Never Vaping Use Vaping status: Never Used Substance Use Topics Alcohol use: Yes Drug use: Never ALLERGIES: ALLERGIES No Known Allergies MEDICATIONS: Current Outpatient Medications Medication Sig montelukast (SINGULAIR) 10 mg tablet take 1 tablet by mouth at bedtime Albuterol Sulfate 0.63 mg/3 mL nebulizer solution INHALE 1 (ONE) vial via NEBULIZER EVERY 6 HOURS NEEDED FOR WHEEZING or SHORTNESS OF BREATH cetirizine (ZYRTEC) 10 mg tablet take 1 tablet by mouth once daily fluticasone (FLONASE) 50 mcg/actuation nasal spray spray 1 to 2 sprays IN EACH NOSTRIL ONCE DAILY albuterol HFA (PROVENTIL HFA, VENTOLIN HFA) 90 mcg/actuation inhaler Inhale 2 Puffs as instructed every 6 hours as needed for wheezing/shortness of breath. zeznpcgjxud-amwosfeqq-jpxce ter (TRELEGY ELLIPTA) 200-62.5-25 mcg inhalation powder Inhale 1 Puff as instructed once daily. methylPREDNISolone (MEDROL, DESI,) 4 mg Dose-Pack Use orally as directed. No current facility-administered medications for this visit. IMMUNIZATIONS: Immunization History Administered Date(s) Administered diphtheria tetanus pertussis (DTP) vaccine [birth year] 02/14/1986 diphtheria tetanus pertussis (DTaP) vaccine, pediatric (INFANRIX) [birth year] 02/14/1986 diphtheria tetanus pertussis (DTaP) vaccine, unspecified formulation 04/25/1987 07/24/1990 measles mumps rubella (MMR) vaccine (M-M-R II, PRIORIX) 01/03/1987 09/17/1997 poliovirus (OPV) vaccine, trivalent, live, oral (ORIMUNE) 1985 1985 02/14/1986 04/25/1987 tetanus diphtheria pertussis (Tdap) vaccine, age 7+ yr (ADACEL, BOOSTRIX) 04/25/1987 07/24/1990 REVIEW OF SYSTEMS Review of Systems Constitutional: Negative for chills, diaphoresis, fatigue, fever and unexpected weight change. HENT: Positive for congestion and rhinorrhea. Negative for dental problem, ear pain, postnasal drip, sinus pressure, sinus pain, sore throat and trouble swallowing. Eyes: Negative for photophobia, pain, discharge, itching and visual disturbance. Respiratory: Positive for chest tightness, shortness of breath and wheezing. Negative for apnea, cough and stridor. Cardiovascular: Negative for chest pain, palpitations and leg swelling. Gastrointestinal: Negative for abdominal distention, abdominal pain, blood in stool, constipation, diarrhea, nausea and vomiting. Endocrine: Negative for polydipsia, polyphagia and polyuria. Genitourinary: Negative for difficulty urinating, dysuria, flank pain and hematuria. Musculoskeletal: Negative for arthralgias, gait problem, joint swelling and myalgias. Skin: Negative for color change, pallor, rash and wound. Aller (more content not included)... [facility] SCREENING W [facility] 02-24 [facility] SCREENING [facility] * * *Final Report* * * DATE OF EXAM: Feb 24 2025 11:56AM UDW 0582 - [facility] SCREENING W TROY / PROCEDURE REASON: [Z12.31] SCREENING * * * * Physician Interpretation * * * * [facility] [place] [address] #[id number] - [facility] SCREENING W TROY HISTORY: 39 year-old patient seen for screening. No current complaints. Patient states no personal history of breast cancer. COMPARISON STUDIES: This is a baseline study. MAMMOGRAM TECHNIQUE: The study was acquired using full field digital technology and interpreted from soft copy. Digital Breast Tomosynthesis (DBT) images were obtained and used to assist in the interpretation of this examination. MAMMOGRAM FINDINGS: There are scattered areas of fibroglandular density. There is possible architectural distortion in the subareolar region of the right breast. No suspicious masses, calcifications or other abnormalities are seen in the left breast. IMPRESSION: The possible architectural distortion in the subareolar region of the right breast requires additional evaluation. Diagnostic mammogram is recommended. BI-RADS Category 0: Incomplete: Needs Additional Imaging Evaluation RISK: Based on the Tyrer-Cuzick (TC) risk assessment model, this patient has a 7.4% lifetime risk of developing breast cancer, meaning they are at average risk for developing breast cancer. However, this is only an estimate based on available history provided on the patient's questionnaire. We encourage all patients to talk with their providers about these results, further recommendations for managing breast health, and appropriate supplemental screening options if the patient has dense breast tissue. Interpreting Radiologist: Hermelinda Trevino M.D. Electronically signed on: 02/25/2025 Assistant Store Manager Trainee: DAMON Transcribe Date/Time: Feb 24 2025 11:33A Dictated by : HERMELINDA TREVINO MD This examination was interpreted and the report reviewed and electronically signed by: HERMELINDA TREVINO MD on Feb 25 2025 8:05PM EST [id number] [facility] PAP TESTon 09-30-2024 ADEQUACY Satisfactory for interpretation. [facility] Comment on above: Order Comment: Speci men Type: FLUID SPECIMEN Ordering Facility: DEBRA VENEGAS M.D. Address: [address] [place] [address] Performed By: #### L [id number] #### [facility] CLIA [id number] LAB CLIA [id number] [address] [place] [address] OF BG CASE REPORT Normal [facility] Comment on above: Order Comment: Speci men Type: FLUID SPECIMEN Ordering Facility: DEBRA VENEGAS M.D. Address: [address] [place] [address] Result Comment: Gyne cologic Cytology Report Case: [id number] Authorizing Provider: Debra Venegas MD Collected: 09/30/2024 03:00 PM Ordering Location: [facility] Received: 10/01/2024 08:22 AM First Screen: Aishwarya Vasquez, [place], ASCP Rescreen: Davis Bean, CT, ASCP Specimen: Pap Test, ThinPrep, Cervix Performed By: #### L [id number] #### [facility] CLIA [id number] [address] [place] [address] LAB CLIA [id number] [address] [place] [address] [place] CLINICAL HISTORY, CYTOLOGY, ETYMOLOGY TEACHER Routine Exam [facility] Comment on above: Order Comment: Speci men Type: FLUID SPECIMEN Ordering Facility: DEBRA VENEGAS M.D. Address: [address] [place] [address] Result Comment: Abno rmal Bleeding (Describe) Cervical Conization Conization 2004; previous pap=05/2016 with negative result Performed By: #### L [id number] #### [facility] CLIA [id number] [address] [place] [address] LAB CLIA [id number] [address] [place] [address] [place] FINAL PERFORMING LAB [facility] Comment on above: Order Comment: Speci men Type: FLUID SPECIMEN Ordering Facility: DEBRA VENEGAS M.D. Address: [address] [place] [address] Result Comment: Tech nical component, marine electrician apprentice screening performed at [facility], [address] [place] [address] [place] [address] CLIA# [id number] Diagnostic interpretation performed at [facility], [address] [place] [address] [place] [address] CLIA# [id number] Mathematics Technician: Miller Black M.D. Performed By: #### L [id number] #### [facility] CLIA [id number] [address] [place], [place] [id number] [facility] CLIA [id number] [address] [place] [address] OF BG INTERPRETATION, CYTOLOGY, ETYMOLOGY TEACHER [facility] Comment on above: Order Comment: Speci men Type: FLUID SPECIMEN Ordering Facility: DEBRA VNEEGAS M.D. Address: [address] [place] [address] Result Comment: Nega tive for intraepithelial lesion or malignancy. Performed By: #### L [id number] #### [facility] CLIA [id number] [address] [place] [address] LAB CLIA [id number] [address] [place] [address] OF [facility] LMP 08/26/2024 [facility] Comment on above: Order Comment: Speci men Type: FLUID SPECIMEN Ordering Facility: DEBRA VENEGAS M.D. Address: [address] [place] [address] Performed By: #### L [id number] #### [facility] CLIA [id number] [address] [place] [address] LAB CLIA [id number] [address] [place] [address] PAP DISCLAIMER COMMENT The Pap Smear is a screening test for cervical cancer. False negative results occur with all screening tests, emphasizing the need for rescreening at recommended intervals, and clinical correlation. [facility] Comment on above: Order Comment: Speci men Type: FLUID SPECIMEN Ordering Facility: DEBRA VENEGAS M.D. Address: [address] [place] [address] Performed By: #### L [id number] #### [facility] CLIA [id number] [address] [place], [place] [id number] [facility] CLIA [id number] [address] [place] [address] PAP WAITER/WAITRESS CLUB COMMENT This specimen has be en analyzed by the ThinPrep Imaging System, an automated imaging and review system, which assists the laboratory in evaluating cells on ThinPrep Pap tests. Following automated imaging, selected rogel from every slide are reviewed by a marine electrician apprentice. [facility] Comment on above: Order Comment: Ifeanyi deng Type: FLUID SPECIMEN Ordering Facility: DEBRA VENEGAS M.D. Address: [address] [place] [address] Performed By: #### L [id number] #### [facility] CLIA [id number] [address] [place] [address] LAB CLIA [id number] [address] [place] [address] CNOVon 05-05-2023 CNOV Office Visit (PULMUP ) RAINE SOLOMON ([id number]) 1985 F Date Time Provider Department 05/05/23 11:40 AM LESLI HAMM During your visit today, we recorded the following information about you: Pulse Blood pressure Weight Height 76/minute 122/80 115.7 kg 1.575 m Lesli Hamm APRN.REPORTS ANALYSIS MANAGER 05/05/2023 12:04 PM Signed Continue with the current medications. I sent refills for all the medications. Call if there is a change and you need to be seen earlier Lesli Hamm APRN.CNP 05/05/2023 12:13 PM Signed [facility] Department of Pulmonary AND Sleep Medicine Lesli Hamm APRN.OLIVIER Pulmonary Progress Note REFERRING PROVIDER: No ref. provider found Raine Solomon is a 37 year old female who is returning for follow up evaluation of asthma. History of Illness Since Last Visit: Patient denies any recent hospitalizations or illnesses. With weather changes her allergy symptoms have been flaring up. She has increased nasal drainage and congestion. She complains of postnasal drainage and a mild cough symptoms. She denies any complaints of chest tightness or wheezing. She denies any complaints of fever, chills, or hemoptysis. She does have chronic exertional dyspnea, stable and at baseline. HISTORY PAST MEDICAL HISTORY Diagnosis Date Amenorrhea Asthma Seasonal allergies Smoker PAST SURGICAL HISTORY Procedure Laterality Date DANDC, DIAG AND/OR THERAPEUTIC FOOT SURGERY HX Right Plantar fascia LIGATE FALLOPIAN TUBE PAST SURGICAL HISTORY OF Thumb Surgery TONSILLECTOMY AND ADENOIDECTOMY HX Social History Tobacco Use Smoking status: Former Packs/day: 1.00 Years: 10.00 Pack years: 10.00 Types: Cigarettes Quit date: 11/30/2019 Years since quittin.4 Smokeless tobacco: Never Vaping Use Vaping Use: Never used Substance Use Topics Alcohol use: Yes Drug use: Never ALLERGIES: ALLERGIES No Known Allergies MEDICATIONS: Current Outpatient Medications Medication Sig albuterol HFA (VENTOLIN HFA) 90 mcg/actuation inhaler Inhale 2 Puffs as instructed every 6 hours as needed for wheezing/shortness of breath. montelukast (SINGULAIR) 10 mg tablet Take 1 tablet by mouth daily at bedtime. cetirizine (ZYRTEC) 10 mg tablet Take 1 tablet by mouth once daily. Albuterol Sulfate 0.63 mg/3 mL nebulizer solution Use 1 Ampule via nebulizer every 6 hours as needed for wheezing/shortness of breath. fluticasone-vilanterol (BREO ELLIPTA) 200-25 mcg/dose inhaler Inhale 1 Inhalation as instructed once daily. fluticasone (FLONASE) 50 mcg/actuation nasal spray Use 1-2 Sprays in each nostril once daily. Current Facility-Administered Medications Medication Dose Route Frequency triamcinolone acetonide 80 mg injection (KeNALog 40) 80 mg INTRAMUSCULAR ONCE (AMB - Up to 30 Days) IMMUNIZATIONS: Immunization History Administered Date(s) Administered diphtheria tetanus pertussis (DTP) vaccine 1985 1985 02/14/1986 diphtheria tetanus pertussis (DTaP) vaccine, unspecified formulation 04/25/1987 07/24/1990 measles mumps rubella (MMR) vaccine (M-M-R II, PRIORIX) 01/03/1987 09/17/1997 poliovirus (OPV) vaccine, trivalent, live, oral (ORIMUNE) 1985 1985 02/14/1986 04/25/1987 REVIEW OF SYSTEMS Review of Systems Constitutional: Negative for chills, diaphoresis, fatigue, fever and unexpected weight change. HENT: Positive for congestion, postnasal drip, rhinorrhea and sinus pressure. Negative for dental problem, ear pain, sinus pain, sore throat and trouble swallowing. Eyes: Negative for photophobia, pain, discharge, itching and visual disturbance. Respiratory: Positive for cough and shortness of breath. Negative for apnea, chest tightness, wheezing and stridor. Cardiovascular: Negative for chest pain, palpitations and leg swelling. Gastrointestinal: Negative for abdominal distention, abdominal pain, blood in stool, constipation, diarrhea, nausea and vomiting. Endocrine: Negative for polydipsia, polyphagia and polyuria. Genitourinary: Negative for difficulty urinating, dysuria, flank pain and hematuria. Musculoskeletal: Negative for arthralgias, gait problem, joint swelling and myalgias. Skin: Negative for color change, pallor, rash and wound. Allergic/Immunologic: Negative for environmental allergies and food allergies. Neurological: Negative for dizziness, syncope, weakness, light-headedness, numbness and headaches. Hematological: Negative for adenopathy. Does not bruise/bleed easily. Psychiatric/Behavioral: Negative for agitation, behavioral problems, confusion and suicidal ideas. Vital Signs: BP 122/80 Pulse 76 Ht 5' 2 (1.58m) Wt 255 lb (115.7kg) SpO2 97% BMI 46.63 kg/(m2). Physical Exam Constitutional: General: She is not in acute distress. Appearance: She is morbidly obese. HEN (more content not included)... Normal [facility] FOOT 3 VIEWSon 12-12-2022 FOOT [address] [address] Name: RAINE SOLOMON Phys: PHYSICIAN RADHA : [birth year] Age: 37 Sex: F Acct: [id number] Loc: RAD Exam Date: 12/12/22 Status: REG CLI Radiology No.: Unit Number: [id number] Exam # Type/Exam [id number] RAD / FOOT 3 VIEWS RT EXAMINATION: THREE XRAY VIEWS OF THE RIGHT FOOT with weightbearing posture 12/12/2022 11:58 am COMPARISON: None. HISTORY: ORDERING SYSTEM PROVIDED HISTORY: TECHNOLOGIST PROVIDED HISTORY: Reason for Exam: Right heel pain for 1 year. FINDINGS: AP, oblique, and lateral views obtained with weight-bearing. There is no acute fracture or subluxation. Enthesophyte formation affects the calcaneal insertion of the Achilles, and origin of plantar aponeurosis. There is no soft tissue swelling or foreign body. IMPRESSION: Mild degenerative spurring of the calcaneus. No acute bony abnormality. Electronically signed By Mirza Santos DO 12/12/2022 2:07:45 PM EST Workstation ID : [id number] < > Reported By: MIRZA SANTOS D.O. Signed In Fluency By: MIRZA SANTOS D.O. << Signature on File>> Reported By: MIRZA SANTOS D.O. Signed By: MIRZA SANTOS D.O. Tests performed at: [address] [address] Normal [facility] XR FOOT GENERAL 3V AP/LAT/OB L RIGHTon 12-12-2022 [facility] CNOVon 10-30-2022 CNOV Office Visit (PULMUP ) RAINE SOLOMON ([id number]) 1985 F Date Time Provider Department 10/30/22 1:40 PM LESLI HAMM During your visit today, we recorded the following information about you: Pulse Blood pressure Weight Height 73/minute 147/72 116.6 kg 1.575 m Lesli Hamm APRN.CNP 10/30/2022 2:04 PM Signed Continue with the current medications. I sent a prednisone taper to have on hand if needed. If you are having tightness, wheezing, worsening shortness of breath, or dry cough these are times to use the prednisone. Call if there is any changes and you need to be seen earlier. Lesli Hamm APRN.CNP 10/30/2022 4:59 PM Signed [facility] Department of Pulmonary AND Sleep Medicine Lesli Hamm APRN.CNP Pulmonary Progress Note REFERRING PROVIDER: Efrem Cherry MD Raine Solomon is a 37 year old female who is returning for follow up evaluation of asthma and shortness of breath. History of Illness Since Last Visit: Patient denies any hospitalizations or illnesses since last office visit. She is doing better since starting Breo daily. She had been on Dulera prior to this, but was having difficulty with adherence to twice daily dosing. Since starting Breo, she is using her albuterol less. However since the weather changes, she has had slight increase in chest tightness and exertional dyspnea, especially when outdoors. She has had to use her albuterol little bit more with the weather changes. She denies any need for steroids or antibiotics at this point. She denies any complaints of fever, chills, or hemoptysis. HISTORY PAST MEDICAL HISTORY Diagnosis Date Amenorrhea Asthma Seasonal allergies Smoker PAST SURGICAL HISTORY Procedure Laterality Date DANDC, DIAG AND/OR THERAPEUTIC LIGATE FALLOPIAN TUBE PAST SURGICAL HISTORY OF Thumb Surgery TONSILLECTOMY AND ADENOIDECTOMY HX Social History Tobacco Use Smoking status: Former Packs/day: 1.00 Years: 10.00 Pack years: 10.00 Types: Cigarettes Quit date: 11/30/2019 Years since quittin.9 Smokeless tobacco: Never Vaping Use Vaping Use: Never used Substance Use Topics Alcohol use: Yes Drug use: Never ALLERGIES: ALLERGIES No Known Allergies MEDICATIONS: Current Outpatient Medications Medication Sig fluticasone-vilanterol (BREO ELLIPTA) 200-25 mcg/dose inhaler Inhale 1 Inhalation as instructed once daily. Rinse with water, gargle, and then expectorate after use. albuterol HFA (VENTOLIN HFA) 90 mcg/actuation inhaler Inhale 2 Puffs as instructed every 4 hours as needed. cetirizine (ZYRTEC) 10 mg tablet Take 1 tablet by mouth once daily. montelukast (SINGULAIR) 10 mg tablet Take 1 tablet by mouth daily at bedtime. Albuterol Sulfate 0.63 mg/3 mL nebulizer solution Use 1 Ampule via nebulizer every 4 hours as needed. predniSONE (DELTASONE) 10 mg tablet TAKE 4 TABS P.O. DAILY X 3 DAYS, THEN 3 TABS P.O. DAILY X 3 DAYS, THEN 2 TABS P.O. DAILY X 5 DAYS, THEN 1 TAB P.O. DAILY X 7 DAYS No current facility-administered medications for this visit. IMMUNIZATIONS: Immunization History Administered Date(s) Administered DTP [birth year] 02/14/1986 DTaP, unspecified formulation 04/25/1987 07/24/1990 OPV [birth year] 02/14/1986 04/25/1987 measles mumps rubella (MMR) vaccine (M-M-R II, PRIORIX) 01/03/1987 09/17/1997 REVIEW OF SYSTEMS Review of Systems Constitutional: Negative for chills, diaphoresis, fatigue, fever and unexpected weight change. HENT: Negative for congestion, dental problem, ear pain, postnasal drip, rhinorrhea, sinus pressure, sinus pain, sore throat and trouble swallowing. Eyes: Negative for photophobia, pain, discharge, itching and visual disturbance. Respiratory: Positive for chest tightness and shortness of breath. Negative for apnea, cough, wheezing and stridor. Cardiovascular: Negative for chest pain, palpitations and leg swelling. Gastrointestinal: Negative for abdominal distention, abdominal pain, blood in stool, constipation, diarrhea, nausea and vomiting. Endocrine: Negative for polydipsia, polyphagia and polyuria. Genitourinary: Negative for difficulty urinating, dysuria, flank pain and hematuria. Musculoskeletal: Negative for arthralgias, gait problem, joint swelling and myalgias. Skin: Negative for color change, pallor, rash and wound. Allergic/Immunologic: Negative for environmental allergies and food allergies. Neurological: Negative for dizziness, syncope, weakness, light-headedness, numbness and headaches. Hematological: Negative for adenopathy. Does not bruise/bleed easily. Psychiatric/Behavioral: Negative for agitation, behavioral problems, confusion and suicidal ideas. Vital Signs: BP 147/72 Pulse 73 Ht 5' 2 (1.58m) Wt 257 lb (116.6kg) SpO2 97% BMI 46.99 kg/(m2). (more content not included)... Normal [facility] PHYSICAL THERAPY REPORTon [facility] [address] PHYSICAL THERAPY REPORT Patient: RAINE SOLOMON [facility] [id number] F Status: DIS RCR PT Physical Therapy Discharge Summary Date: 04/10/[address] Samuel, As you know, [facility] to right heel pain of bone spur. The patient was last seen on March 20, 2022. The patient canceled her remaining 2 visits. We assume the patient is continuing therapy independently. The patient was seen for 6 visits and was discharged on April 10, 2022. Thank you for referring your patient. If you have any further questions, please feel free to contact me at [facility]. Sincerely, Patrick Fuentes PT, DPT Report#: Dict ID [id number] / Int ID [id number] Dictated By: PATRICK FUENTES DPT 04/12/22 1627 PATRICK FUENTES DPT CC: << Signature on File>> Reported By: PATRICK FUENTES DPT Signed By: PATRICK FUENTES DPT Tests performed at: [place] [address] Normal [facility] PHYSICAL THERAPY REPORTon PHYSICAL THERAPY REPORT [facility] [address] [place] [address] PHYSICAL THERAPY REPORT Patient: RAINE SOLOMON [facility] [id number] F Status: DIS RCR PT Physical Therapy Initial Evaluation DATE OF VISIT: 02/25/2022 DATE OF ONSET: 6 months. PHYSICAL THERAPY DIAGNOSES: 1. Decreased strength in right ankle. 2. Increased pain in right heel. MEDICAL DIAGNOSES: 1. Plantar fasciitis. 2. Right heel spur. CHIEF COMPLAINT - FUNCTIONAL LIMITATIONS: The patient complains of increased pain in her right heel whenever she puts weight on it. HISTORY: The patient is a 36-year-old female, who had insidious onset of right heel pain over the past 6 months. She reports she had difficulty finding body art technician that would her accept her insurance. Therefore, it took a while for her to get treatment. She had a cortisone shot which she believes made things worse. She complains of numbness in her right heel occasionally. She also gets sharp shooting pain occasionally as well. She is getting inserts for her shoes but is waiting approval from her insurance. 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 Therefore, she has not had any other patient. She is on a pill 1 time a day to help out with inflammation. She states her heel hurts worse the more she is on it. She feels better when she props her foot up. PERSONAL FACTORS AND COMORBIDITIES: Asthma. EXAMINATION: VAS PAIN SCALE: 8/10 pain in the plantar aspect of her right heel. ACTIVE RANGE OF MOTION: Bilateral ankle dorsiflexion 8 degrees; plantar flexion 47 degrees; inversion 35 degrees; eversion 22 degrees. OBSERVATION: Unremarkable. PALPATION: The patient demonstrates increased tenderness to her right plantar heel. MANUAL MUSCLE TESTING: Bilateral ankle dorsiflexion and plantar flexion 4+/5 with pain with right ankle plantar flexion; bilateral knee extension and flexion 4+/5; right hip flexion and abduction 4+/5, left hip flexion and abduction 4-/5. Mobilization to lumbar spine to rule out dermatome sensation to her right heel: Mobilizations from L1-S1: Unremarkable. GAIT ANALYSIS: The patient demonstrates antalgic gait pattern on right lower extremity due to right heel pain. CLINICAL PRESENTATION: The patient displays a stable clinical presentation. CLINICAL DECISION MAKING: Low complexity based on above history, examination, and clinical presentation. PROBLEM LIST/FUNCTIONAL LIMITATIONS: 1. Increased right heel pain. 2. Decreased strength. SHORT-TERM GOALS: The patient will be independent with home exercise program within 1 to 2 weeks. LONG-TERM FUNCTIONAL GOALS/PATIENT-STATED GOALS: 1. The patient will improve right heel pain to less than or equal to /10. 2. The patient will be able to ambulate reciprocally to return to prior level of function. 3. The patient will report an overall improvement of 85% or greater. PROGNOSIS/REHABILITATION POTENTIAL: Good to achieve therapy goals. TREATMENT PLAN: The patient will be seen for manual therapy, therapeutic exercise, patient education, stretching as needed and as indicated. FREQUENCY/DURATION: 1 to 2 times per week for 10 visits. We will recommend additional visits as needed. DISCHARGE PLAN: The patient will be discharged from physical therapy upon completion all therapy goals, reaching plateau in physical therapy progress, and/or maximizing current physical therapy prescription. Thank you for referring your patient. If you have any further questions, please feel free to contact me at [facility]. Sincerely, Patrick Fuentes PT, DPT Report#: Dict ID [id number] / Int ID [id number] cc: PHYSICIAN MISC Dictated By: PATRICK FUENTES DPT 03/01/22 1459 PATRICK FUENTES DPT CC: << Signature on File>> Reported By: PATRICK FUENTES DPT Signed By: PATRICK FUENTES DPT Tests performed at: [address] [address] Normal [facility] Laboratory - Microbiology an d Antimicrobial susceptibilityon 01-01-2022 FLUAV Ag IA Ql (Throat) Negative Normal [facility]; [facility]. CORONAVIRUS PCR [CCL]on 10-02 REF LAB REPORT Positive Normal [facility] Comment on above: Performed By: #### 2 [id number] #### [facility],[address] [place] [address] SEND TO ? YES Normal [facility] Comment on above: Performed By: #### 2 [id number] #### [facility],[address] [place], [place] [id number] COVID 19 Result DIRECTOR SOFTWARE DEVELOPMENT Positive Abnormal CORNEG [facility] Comment on above: Result Comment: Posi tive for COVID19 (SARS CoV2) by PCR.(*) This test was developed and its performance characteristics determined by [facility]'s [facility] [place]. This test has been authorized by FDA under an Emergency Use Authorization (EUA). This test has been validated in accordance with the FDA's Guidance Document Policy for Diagnostics Testing in Laboratories Certified to Perform High Complexity Testing under CLIA prior to Emergency use Authorization for Coronavirus Disease 2019 during the Public Health Emergency issued on January 29, 2020. [place] [address] [place] [address] Miller Black III, M.D. [id number] Performed By: #### 2 [id number] #### [address] [address] COVID 19 Source DIRECTOR SOFTWARE DEVELOPMENT Nasopharyngeal Swab Normal [facility] Comment on above: Result Comment: Narayan ected on 10/25 AT 1525: Previously reported as U Performed By: #### 2 [id number] #### [address] [address] Coronavirus 2019on 0 COVID 19 Result DIRECTOR SOFTWARE DEVELOPMENT Abnormal Negative for COVID19 (SARS CoV2) by PCR. [facility] Comment on above: Result Comment: Posi tive for This test was developed and its performance characteristics determined by [facility]'s [facility] [place]. This test has been authorized by FDA under an Emergency Use Authorization (EUA). This test has been validated in accordance with the FDA's Guidance Document Policy for Diagnostics Testing in Laboratories Certified to Perform High Complexity Testing under CLIA prior to Emergency use Authorization for Coronavirus Disease 2019 during the Public Health Emergency issued on January 29, 2020. COVID19 (SARS This test was developed and its performance characteristics determined by [facility]'s [facility] [place]. This test has been authorized by FDA under an Emergency Use Authorization (EUA). This test has been validated in accordance with the FDA's Guidance Document Policy for Diagnostics Testing in Laboratories Certified to Perform High Complexity Testing under CLIA prior to Emergency use Authorization for Coronavirus Disease 2019 during the Public Health Emergency issued on January 29, 2020. CoV2) by This test was developed and its performance characteristics determined by [facility]'s [facility] [place]. This test has been authorized by FDA under an Emergency Use Authorization (EUA). This test has been validated in accordance with the FDA's Guidance Document Policy for Diagnostics Testing in Laboratories Certified to Perform High Complexity Testing under CLIA prior to Emergency use Authorization for Coronavirus Disease 2019 during the Public Health Emergency issued on January 29, 2020. PCR.(*) This test was developed and its performance characteristics determined by [facility]'s [facility] [place]. This test has been authorized by FDA under an Emergency Use Authorization (EUA). This test has been validated in accordance with the FDA's Guidance Document Policy for Diagnostics Testing in Laboratories Certified to Perform High Complexity Testing under CLIA prior to Emergency use Authorization for Coronavirus Disease 2019 during the Public Health Emergency issued on January 29, 2020. Coronavirus 2019on 0 COVID 19 Source DIRECTOR SOFTWARE DEVELOPMENT Normal [facility] Comment on above: Result Comment: Naso pharyngeal Corrected on 10/25 AT 1525: Previously reported as U Swab Corrected on 10/25 AT 1525: Previously reported as U [facility]itter Cytology Reporton 2017 Core Fitter Cytology Report . Pathology ReportsAccession: Collected Date/Time: Received Date/Time: Pathologist:[id number] 01/27/2018 13:57 EST 01/28/2018 18:00 EST Core Fitter Cytology ReportSPECIMEN:Specimen Description: Liquid Prep Reflex ASCUSSpecimen: Cervical/EndocervicalScreen ing or Diagnostic: ScreeningRELEVANT HISTORY:LMP: 10/17/[id number] ADEQUACY:SATISFACTORY FOR EVALUATIONENDOCERVICAL/JENKINS SFORMATIONAL ZONE COMPONENT ABSENT/INSUFFICIENTINTERPRE TATION/RESULTS:NEGATIVE FOR INTRAEPITHELIAL LESION OR MALIGNANCYElectronically Signed byPathology report verified by [facility] Campuscreened by: GLElectronically signed by Marya Jonesign-Out Date: 02/04/2018 14:18Performing Lab: [facility], [address] [place], [place] [address]ismass[facility] ear infirmaryThe Pap test is a screening test for cervical cancer. As evidenced by published data, it is subject to both inherent false negative and false positive results. Your patient's results should be interpreted in context with pertinent clinical history including gynecological examination. Normal [facility] ([place]) Comment on above: Performed By: #### G YCR ####[place] [address] Laboratory - Chemistry and C hemistry - challengeon 02-02-2018 Albumin [Mass/Vol] 4.2 g/dL Normal 3.4 - 4.8 g/dL [facility], [facility].; [facility], [facility]. Albumin [Mass/Vol] 1.9 g/dL Abnormal 0.9 - 1.6 [facility], [facility].; [facility] ALT [Catalytic activity/Vol] 16 U/L Normal 8 - 35 U/L [facility], [facility].; [facility] Anion gap [Moles/Vol] 12 mmol/L Normal 10 - 20 mmol/L [facility], [facility].; [facility] AST [Catalytic activity/Vol] 13 U/L Normal 13 - 39 U/L [facility], [facility].; [facility] Bilirubin [Mass/Vol] 0.3 mg/dL Normal 0.0 - 1.5 mg/dL [facility], [facility].; [facility] Calcium [Mass/Vol] 8.9 mg/dL Normal 8.6 - 10. 2 mg/dL [facility]; [facility] Chloride [Moles/Vol] 106 mmol/L Normal 98 - 107 mmol/L [facility]; [facility] Cholesterol [Mass/Vol] 154 mg/dL Normal 0 - 200 mg/dL [facility]; [facility] Cholesterol in HDL [Mass or moles/Vol] 47 mg/dL Normal 40 - 60 mg/dL [facility]; [facility] Cholesterol in LDL [Mass/Vol] 93 mg/dL Normal 0 - 129 mg/dL [facility]; [facility] Cholesterol.total/C holesterol in HDL [Mass ratio] 3.3 {ratio} Normal 0.0 - 5.0 [facility]; [facility] CO2 [Moles/Vol] 23.8 mmol/L Normal 21.0 - 31.0 mmol/L [facility]; [facility] Creatinine [Mass/Vol] 0.7 mg/dL Normal 0.6 - 1.2 mg/dL [facility]; [facility]. GFR/1.73 sq M.predicted among blacks MDRD (S/P/Bld) [Vol rate/Area] mL/min/{1.73_m2} Normal 60 - 999 {ML/MINUTE} [facility].; [facility]. GFR/1.73 sq M.predicted MDRD (S/P/Bld) [Vol rate/Area] mL/min/{1.73_m2} Normal 60 - 999 {ML/MINUTE} [facility].; [facility] Globulin (S) [Mass/Vol] 2.2 g/dL Normal 1.5 - 3.8 g/dL [facility]; [facility]. Glucose [Mass/Vol] 100 mg/dL Normal 74 - 106 mg/dL [facility].; [facility], [facility]. Lipid 1996 panel Normal [facility], [facility].; [facility], [facility]. Potassium [Moles/Vol] 4.1 mmol/L Normal 3.5 - 5.1 mmol/L [facility].; [facility], [facility] Protein [Mass/Vol] 6.4 g/dL Normal 6.4 - 8.3 g/dL [facility].; [facility], [facility]. Sodium [Moles/Vol] 138 mmol/L Normal 136 - 145 mmol/L [facility].; [facility], [facility]. Triglyceride [Mass/Vol] 68 mg/dL Normal 0 - 150 mg/dL [facility].; [facility], [facility]. Urea nitrogen [Mass/Vol] 14 mg/dL Normal 6 - 20 mg/dL [facility].; [facility], [facility]. Urea nitrogen/Creatinine [Mass ratio] 20 {ratio} Normal 0 - 30 {ratio} [facility] No Panel Informationon 02-02 AGE 32 {years} Normal [facility].; [facility], [facility]. ALK PHOS 59 U/L Normal 38 - 126 U/L [facility].; [facility] CMP with eGFR Normal [facility].; [facility], [facility]. Laboratory - Chemistry and C hemistry - challengeon 01-27-2018 Beta HCG ( test) Ql (U) Negative Normal [facility], [facility].; [facility] Bilirubin Ql (U) Negative Normal [facility], [facility].; [facility] Ketones Ql (U) Negative Normal [facility]; [facility] pH (U) 5.0 [pH] Normal [facility], [facility].; [facility] Specific gravity (U) [Rel density] 1.015 Normal [facility] Laboratory - Hematology and Cell countson 01-27-2018 Hemoglobin Ql (U) Negative Normal [facility] Laboratory - Specimen inform ationon 01-27-2018 Appearance (U) CLEAR Normal [facility] Color (U) YELLOW Normal [facility], [facility].; [facility] Laboratory - Urinalysison Glucose Test strip (U) [Mass/Vol] Negative Normal [facility] Leukocyte esterase Test strip Ql (U) Negative Normal [facility] Nitrite Ql (U) Negative Normal [facility], Inc.; [facility], Inc[facility] Protein Ql (U) Negative Normal [facility].; [facility], Inc[facility] No Panel Informationon 01-27 Core Fitter Cytology Report See Note Normal [facility], Inc.; [facility], Inc[facility] UA - ODOR Negative Normal [facility], [facility].; [facility], Inc. UA - UROBILIGEN 0.2 Normal [facility].; [facility], Inc[facility] Laboratory - Chemistry and C hemistry - challengeon 01-13-2018 Bilirubin [Mass/Vol] Negative Normal [facility], [facility].; [facility], Inc. Bilirubin Ql (U) Negative Normal [facility], Inc.; [facility], Inc[facility] Glucose [Mass/Vol] NORM Normal [facility] [employer] Inc.; [facility], Inc. Ketones Ql (U) tRACE Abnormal [facility], [facility]. pH (Bld) 6 [pH] Normal [facility]Health[facility] / [facility]Noodle [facility].; [facility], Inc. pH (U) 6.0 [pH] Normal [facility].; [facility], Inc. Protein [Mass/Vol] Negative Normal [facility] Inc[facility] Specific gravity (U) [Rel density] 1.030 Abnormal [facility].; [facility], [facility]. Laboratory - Hematology and Cell countson 01-13-2018 Hemoglobin Ql (U) HEMOLYZED TRACE Abnormal [facility] Inc[facility] WBC (Bld) [#/Vol] Negative Normal [facility], Inc[facility] Laboratory - Microbiology an d Antimicrobial susceptibilityon 01-13-2018 Bacteria identified Cx Nom (U) See Note Normal [facility].; [facility], Inc. Bacteria identified Cx Nom (Unsp spec) NONE Normal [facility].; [facility], Inc[facility] Laboratory - Specimen inform ationon 01-13-2018 Appearance (U) cLEAR Normal [facility] Inc[facility] Clarity (U) clear Normal [facility].; [facility] Inc[facility] Color (U) yELLOW Normal [facility].; [facility], Inc[facility] Color (U) p.yel Normal [facility].; [facility], Inc. Specimen type Nom (Spec) Void Normal [facility].; [facility], Inc[facility] Laboratory - Urinalysison 02 -13-2018 Crystals LM Nom (Urine sed) NONE Normal [employer] [facility]Health[facility] / [employer]le Inc.; [employer] [facility], Inc. Glucose Test strip (U) [Mass/Vol] Negative Normal [employer] [facility] HospitalPlayed.; U-NOTEBiglion [facility], Inc. Leukocyte esterase Test strip Ql (U) Negative Normal [employer] [facility], Inc.; Radiant Zemax [facility] [place] [facility], Inc. Nitrite Ql (U) Negative Normal [facility] Sealed NuAx [facility] HospitalHealthTeacher / [employer]le Inc.; U-NOTEBiglion [facility], Inc. Protein Ql (U) Negative Normal [facility] Sealed NuAx [facility] HospitalHealthTeacher / [employer]le Inc.; Radiant Zemax [facility] [place] [facility], Inc. Yeast LM Ql (Urine sed) NONE Normal [employer] [facility] HospitalPlayed.; U-NOTEBiglion [facility], Inc. No Panel Informationon 01-13 Amorphous NONE Normal [employer], Inc.; [employer]iod[employer], Inc. Blood 10 Abnormal [employer].; [employer] Z[employer] [facility], Inc. Casts NONE Normal [employer] Inc.; Radiant Zemax [facility] [place] [facility], Inc. Epi Cells OCC Normal [employer].; U-NOTEBiglion [facility] [place] [facility], Inc. Ketone 5 Abnormal [employer] Inc.; U-NOTEBiglion [facility] [place] [facility], Inc. Mucous NONE Normal [facility]merge [facility], Inc.; [employer] [facility], Inc. Rbc 0-5 Normal 0 - 3 [employer] Inc.; [employer]iodies[employer] [facility], Inc. Sp [place] 1.015 Normal [employer].; [employer], [employer]. [facility], Inc. UA - ODOR Negative Normal [employer].; [employer], Inc. [facility], Inc. UA - UROBILIGEN 0.2 Normal [employer].; Radiant Zemax [facility] Caremerge [facility], Inc. URINALYSIS WITH MICROSCOPY Normal [employer] Inc.; Radiant Zem[employer] [facility], Inc. Urobilinog NORM Normal [employer] Inc.; Rad[employer] Zemax [facility] Wbc NONE Normal 0 - 5 [facility] HospitalHealth[facility] / GoNoodle [facility].; [facility], [facility]. Laboratory - Microbiology an d Antimicrobial susceptibilityon 02-27-2016 S. pneumoniae Ag LA Ql (Unsp spec) Negative Normal [facility] HospitalHealthTe[facility] GoNoodle [facility].; [facility], [facility]. No Panel Informationon 08-07 Culture Urine SEE BELOW Normal [facility]Health[facility] GoNoodle [facility].; [facility], [facility]. SURGICAL PATHOLOGY, CONVERTE Don 02-22-2009 [facility] CYTOLOGY ETYMOLOGY TEACHER, CONVERTEDon [facility] CYTOLOGY ETYMOLOGY TEACHER, CONVERTEDon [facility] CYTOLOGY ETYMOLOGY TEACHER, CONVERTEDon [facility] Vital Signs Date Time Vital Sign Value Performing Clinician Facility 05-02-2025 13:48-0400 Body height 158.75 cm [email or web address], [facility].; [facility] 05-02-2025 13:48-0400 Body mass index (BMI) [Ratio] 47.7 kg/m2 [facility], Inc.; [facility] Inc[facility] 05-02-2025 13:48-0400 Body surface area Derived from formula 2.17 m2 [facility] ([email or web address])ER [facility], Inc.; [facility] Inc[facility] 05-02-2025 13:48-0400 Body weight 120.2 kg [facility] ([email or web address], Inc.; [facility] Inc[facility] 05-02-2025 13:48-0400 Diastolic blood pressure 80 mm[Hg] [facility] ([email or web address])ER [employer]-[facility], Inc.; [facility], Inc. Comment on above: Patient Position: Sitting; Cuff Location : Left Arm; Cuff Size: Large 05-02-2025 13:48-0400 Heart rate 80 /min [facility] ([email or web address])ER [facility], Inc.; [facility], Inc. Comment on above: Pattern: Regular 05-02-2025 13:48-0400 Systolic blood pressure 114 mm[Hg] TYRONE DIAZ [facility]; [place] Comment on above: Patient Position: Sitting; Cuff Location : Left Arm; Cuff Size: Large 02-24-2025 10:32-0400 Diastolic blood pressure 82 mm[Hg] Lesli Hamm PSYCHOLOGICAL AIDE.REPORTS ANALYSIS MANAGER Work Phone: [facility] 02-24-2025 10:32-0400 Systolic blood pressure 123 mm[Hg] Lesli Hamm PSYCHOLOGICAL AIDE.REPORTS ANALYSIS MANAGER Work Phone: [facility] 02-24-2025 09:55-0400 Body height 157.5 cm Lesli Hamm PSYCHOLOGICAL AIDE.REPORTS ANALYSIS MANAGER Work Phone: [facility] 02-24-2025 09:55-0400 Body mass index (BMI) [Ratio] 49.37 kg/m2 Lesli Hamm PSYCHOLOGICAL AIDE.REPORTS ANALYSIS MANAGER Work Phone: [facility] 02-24-2025 09:55-0400 Body weight 122.47 kg Lesli Hamm PSYCHOLOGICAL AIDE.REPORTS ANALYSIS MANAGER Work Phone: [facility] 02-24-2025 09:55-0400 Heart rate 68 /min Lesliayla Hamm PSYCHOLOGICAL AIDE.REPORTS ANALYSIS MANAGER Work Phone: [facility] 02-24-2025 09:55-0400 SaO2% (BldA) [Mass fraction] 98 % Lesliayla Hamm PSYCHOLOGICAL AIDE.REPORTS ANALYSIS MANAGER Work Phone: [facility] 06-15-2024 14:12-0400 Body height 157.5 cm Lesli Hamm PSYCHOLOGICAL AIDE.REPORTS ANALYSIS MANAGER Work Phone: [facility] 06-15-2024 14:12-0400 Body mass index (BMI) [Ratio] 49.81 kg/m2 Lesli Hamm PSYCHOLOGICAL AIDE.REPORTS ANALYSIS MANAGER Work Phone: [facility] 06-15-2024 14:12-0400 Body weight 123.56 kg Lesli Devault PSYCHOLOGICAL AIDE.REPORTS ANALYSIS MANAGER Work Phone: [facility] 06-15-2024 14:12-0400 Diastolic blood pressure 82 mm[Hg] Lesli Devault PSYCHOLOGICAL AIDE.REPORTS ANALYSIS MANAGER Work Phone: [facility] 06-15-2024 14:12-0400 Heart rate 80 /min Lesli Fleixault PSYCHOLOGICAL AIDE.REPORTS ANALYSIS MANAGER Work Phone: [facility] 06-15-2024 14:12-0400 SaO2% (BldA) [Mass fraction] 96 % Lesli Felixault PSYCHOLOGICAL AIDE.REPORTS ANALYSIS MANAGER Work Phone: [facility] 06-15-2024 14:12-0400 Systolic blood pressure 131 mm[Hg] Lesli Felixault PSYCHOLOGICAL AIDE.REPORTS ANALYSIS MANAGER Work Phone: [facility] 05-05-2023 11:36-0400 Body height 157.5 cm Lesli Hamm PSYCHOLOGICAL AIDE.REPORTS ANALYSIS MANAGER Work Phone: [facility] 05-05-2023 11:36-0400 Body weight 115.67 kg Lesli Felixault PSYCHOLOGICAL AIDE.REPORTS ANALYSIS MANAGER Work Phone: [facility] 05-05-2023 11:36-0400 Diastolic blood pressure 80 mm[Hg] Lesli Felixault PSYCHOLOGICAL AIDE.REPORTS ANALYSIS MANAGER Work Phone: [facility] 05-05-2023 11:36-0400 Heart rate 76 /min Lesli Devault PSYCHOLOGICAL AIDE.REPORTS ANALYSIS MANAGER Work Phone: [facility] 05-05-2023 11:36-0400 SaO2% (BldA) [Mass fraction] 97 % Lesli Devault PSYCHOLOGICAL AIDE.REPORTS ANALYSIS MANAGER Work Phone: [facility] 05-05-2023 11:36-0400 Systolic blood pressure 122 mm[Hg] Lesli Devault PSYCHOLOGICAL AIDE.REPORTS ANALYSIS MANAGER Work Phone: [facility] 02-11-2023 09:45-0400 Body height 158.75 cm JOSHUA LIZAMA RN [facility].; LENNOX Coles [facility] 02-11-2023 09:45-0400 Body mass index (BMI) [Ratio] 46.26 kg/m2 JOSHUA LIZAMA RN [facility], [facility].; [facility]. 02-11-2023 09:45-0400 Body surface area Derived from formula 2.14 m2 JOSHUA LIZAMA RN [facility], [facility].; [facility]. 02-11-2023 09:45-0400 Body weight 116.58 kg JOSHUA LIZAMA RN [facility], [facility].; [facility], [facility]. 02-11-2023 09:45-0400 Diastolic blood pressure 75 mm[Hg] JOSHUA LIZAMA RN [facility], [facility].; [facility]. Comment on above: Patient Position: Sitting; Cuff Location : Left Arm; Cuff Size: Large 02-11-2023 09:45-0400 Heart rate 70 /min JOSHUA LIZAMA RN [facility], [facility].; [facility], [facility]. Comment on above: Pattern: Regular 02-11-2023 09:45-0400 Systolic blood pressure 109 mm[Hg] JOSHUA LIZAMA RN [facility], [facility].; [facility]. Comment on above: Patient Position: Sitting; Cuff Location : Left Arm; Cuff Size: Large 10-30-2022 13:36-0500 Body height 157.5 cm Lesli Hamm APRN.REPORTS ANALYSIS MANAGER Work Phone: [facility] 10-30-2022 13:36-0500 Body weight 116.57 kg Lesli Hamm APRN.REPORTS ANALYSIS MANAGER Work Phone: [facility] 10-30-2022 13:36-0500 Diastolic blood pressure 72 mm[Hg] Lesli Hamm APRN.REPORTS ANALYSIS MANAGER Work Phone: [facility] 10-30-2022 13:36-0500 Heart rate 73 /min Lesli Hamm APRN.REPORTS ANALYSIS MANAGER Work Phone: [facility] 10-30-2022 13:36-0500 SaO2% (BldA) [Mass fraction] 97 % Lesli Hamm APRN.CNP Work Phone: [facility] 10-30-2022 13:36-0500 Systolic blood pressure 147 mm[Hg] Lesli Hamm APRN.CNP Work Phone: [facility] 01-01-2022 14:29-0500 Body height 158.75 cm [facility], Inc.; [facility], Inc[facility] 01-01-2022 14:29-0500 Body mass index (BMI) [Ratio] 48.6 kg/m2 [facility], Inc.; [facility]ETex[facility], Inc. 01-01-2022 14:29-0500 Body surface area Derived from formula 2.18 m2 [facility], Inc.; [facility]NOTETex[facility], Inc[facility] 01-01-2022 14:29-0500 Body temperature 101 [degF] [facility] HospitalHealthTeacher / [employer] Inc.; U-NOTECOMMUNITY HEALTH SYSTEMS [employer] [facility], Inc. Comment on above: Method: Tympanic 01-01-2022 14:29-0500 Body weight 122.47 kg [facility], Inc.; [facility]-NOTECOMMUNITY HEALTH SYSTEMS [employer] [facility], Inc. 01-01-2022 14:29-0500 Heart rate 68 /min [facility].; [facility], Inc. Comment on above: Pattern: Regular 01-01-2022 14:29-0500 Inhaled oxygen concentration 21 % [facility], Inc.; [facility]NOT[facility]OMMUN[facility] SYSTEM[facility] [employer] [facility], Inc. Comment on above: Room air 01-01-2022 14:29-0500 SaO2% (BldA) [Mass fraction] 95 % [facility].; [facility], Inc. 02-01-2021 15:11-0500 Body height 158.75 cm Joy Arana [facility], [facility].; [facility], [facility]. 02-01-2021 15:11-0500 Body mass index (BMI) [Ratio] 45.72 kg/m2 Joy Blair Cherry Sumit [facility], Inc.; [facility], Inc. 02-01-2021 15:11-0500 Body surface area Derived from formula 2.13 m2 Joy Blair Cherry Sumit [facility], [facility].; [facility], [facility]. 02-01-2021 15:110500 Body weight 115.21 kg Joy Blair [facility], [facility].; [facility], [facility]. 02-01-2021 15:11-0500 Diastolic blood pressure 82 mm[Hg] Joy Blair [facility] SystemHealthTeacher / [employer] Inc.; DRYDEN [employer] [facility], Inc[facility] Comment on above: Patient Position: Sitting; Cuff Location : Left Arm; Cuff Size: Large 02-01-2021 15:11-0500 Heart rate 65 /min Joy Blair Cherry Sumit [facility].; DRYDEN [employer] [facility], Inc. Comment on above: Pattern: Regular 02-01-2021 15:11-0500 Inhaled oxygen concentration 21 % Joy Blair Cherry Sumit [place] [facility] HospitalHealthTeacher / GoNoodle [facility].; [facility]NOTECOMMUN[facility] SYSTEM[facility] [employer] [facility], Inc. Comment on above: Room air 02-01-2021 15:11-0500 SaO2% (BldA) [Mass fraction] 99 % Joy Arana [place] [facility] HospitalHealthTeacher / GoNoodle [facility].; DRYDEN [employer] [facility], Inc. 02-01-2021 15:11-0500 Systolic blood pressure 129 mm[Hg] Joy Blair Cherry Sumit [place] [facility], [facility].; [facility]-NOTECOMMUNITY HEALTH SYSTEMS [employer] [facility], [employer]. Comment on above: Patient Position: Sitting; Cuff Location : Left Arm; Cuff Size: Large 04-06-2020 13:26-0400 Body height 158.75 cm Joy Blair Cherry Sumit [place] [facility] HospitalHealthTeacher / GoNoodle [facility].; [facility], Inc. 04-06-2020 13:26-0400 Body mass index (BMI) [Ratio] 45 kg/m2 Joy Blair [facility], [facility].; [facility], Inc. 04-06-2020 13:26-0400 Body surface area Derived from formula 2.11 m2 Joy Blair [facility], Inc.; [facility], Inc. 04-06-2020 13:26-0400 Body temperature 98.8 [degF] Joy Blair [facility] SystemHealthTeacher / GoNoodle [facility].; [facility], [facility]. Comment on above: Method: Oral 04-06-2020 13:26-0400 Body weight 113.4 kg Joy Blair [facility] SystemHealthTe[facility] / GoNoodle [facility].; [facility], [facility]. 04-06-2020 13:26-0400 Diastolic blood pressure 76 mm[Hg] Joy Blair [facility] SystemHealthTe[facility] / GoNoodle [facility].; [facility], [facility]. Comment on above: Patient Position: Sitting; Cuff Location : Left Arm; Cuff Size: Standard 04-06-2020 13:26-0400 Heart rate 86 /min Joy Blair [facility] SystemHealthTe[facility] / GoNoodle [facility].; [facility], [facility]. Comment on above: Pattern: Regular 04-06-2020 13:26-0400 Systolic blood pressure 116 mm[Hg] Joy Blair [facility] SystemHealthTeacher / GoNoodle [facility].; [facility], [facility]. Comment on above: Patient Position: Sitting; Cuff Location : Left Arm; Cuff Size: Standard 01-18-2020 13:04-0500 Body height 158.75 cm [employer]-C [facility] Kibin [facility] HospitalHealthTeacher / [employer] Inc.; [facility], Inc. 01-18-2020 13:04-0500 Body mass index (BMI) [Ratio] 43.74 kg/m2 LightningBuy[employer]-C [facility], Inc.; [facility], Inc. 01-18-2020 13:04-0500 Body surface area Derived from formula 2.09 m2 TYRONE ENGLISHZULAYTYREL [facility], [facility].; [facility], [facility]. 01-18-2020 13:04-0500 Body weight 110.22 kg TYRONE CARMENCITAACETOPHER [facility], [facility].; [facility], [facility]. 01-18-2020 13:04-0500 Diastolic blood pressure 80 mm[Hg] TYRONE [place] [employer] SSDACETOPHER [facility], [facility].; [facility], [employer]. Comment on above: Patient Position: Sitting; Cuff Location : Left Arm; Cuff Size: Standard 01-18-2020 13:04-0500 Heart rate 77 /min TYRONE TSEZULAYAtrium Health LincolnHealthTeacher / GoNoodle [facility].; [facility] Kibin [facility] HospitalPlayed. Comment on above: Pattern: Regular 01-18-2020 13:04-0500 Systolic blood pressure 140 mm[Hg] TYRONE ANTOINETOPHER [place] HealthHealthTeacher / GoNoodle [facility].; [facility] Kibin [facility] HospitalPlayed. Comment on above: Patient Position: Sitting; Cuff Location : Left Arm; Cuff Size: Standard 07-27-2019 10:11040 Body height 158.75 cm JOSHUA LIZAMA RN [facility] CenterQuaam [facility] HospitalPlayed.; [facility] Kibin [facility] HospitalPlayed. 07-27-2019 10:110400 Body mass index (BMI) [Ratio] 43.56 kg/m2 JOSHUA LIZAMA RN [facility] K[facility] HospitalPlayed.; [facility]HealthTe[facility] / GoNoodle [facility]. 07-27-2019 10:11-0400 Body surface area Derived from formula 2.09 m2 JOSHUA LIZAMA RN [facility] Caremerge [facility] HospitalHealthTeacher / GoNoodle [facility].; [facility] Kibin [facility] HospitalPlayed. 07-27-2019 10:11040 Body weight 109.77 kg JOSHUA GRATE CLARE [facility] CenterQuaam [facility] HospitalPlayed.; [facility] [place] [facility] HospitalPlayed. 07-27-2019 10:11-0400 Diastolic blood pressure 73 mm[Hg] JOSHUA LIZAMA RN [facility] K[facility]in [facility] HospitalPlayed.; [facility] Kibin [facility] HospitalPlayed. Comment on above: Patient Position: Sitting; Cuff Location : Left Arm; Cuff Size: Large 07-27-2019 10:11-0400 Heart rate 82 /min JOSHUA LIZAMA RN [facility], [employer].; [facility] Kibin [facility] HospitalPlayed. Comment on above: Pattern: Regular 07-27-2019 10:11-0400 Systolic blood pressure 110 mm[Hg] JOSHUA GRATE CLARE [facility], Inc.; U-NOTECOMMUNITY HEALTH SYSTEMS [employer] [facility] [place] [facility], [employer]. Comment on above: Patient Position: Sitting; Cuff Location : Left Arm; Cuff Size: Large 01-05-2019 14:41-0500 Body height 158.75 cm JOSHUA LIZAMA RN [facility], Inc.; [facility], Inc. 01-05-2019 14:41-0500 Body mass index (BMI) [Ratio] 41.76 kg/m2 JOSHUA LIZAMA RN [facility], Inc.; [facility], Inc. 01-05-2019 14:41-0500 Body surface area Derived from formula 2.05 m2 JOSHUA LIZAMA RN [facility], Inc.; [facility], Inc. 01-05-2019 14:41-0500 Body temperature 98.3 [degF] JOSHUA LIZAMA RN [facility], [employer].; [facility], [employer]. Comment on above: Method: Oral 01-05-2019 14:41-0500 Body weight 105.24 kg JOSHUA LIZAMA RN [facility], Inc.; [facility], Inc. 01-05-2019 14:41-0500 Diastolic blood pressure 76 mm[Hg] JOSHUA LIZAMA RN [facility], Inc.; [facility]ELifecare [facility] [place] K[facility]in [facility] HospitalPlayed. Comment on above: Patient Position: Sitting; Cuff Location : Left Arm; Cuff Size: Large 01-05-2019 14:41-0500 Heart rate 71 /min JOSHUA LIZAMA RN [facility], [employer].; netTALKSwedish [facility] [place] [facility], [employer]. Comment on above: Pattern: Regular 01-05-2019 14:41-0500 Systolic blood pressure 111 mm[Hg] JOSHUA LIZAMA RN [facility], Inc.; [employer], [employer]. Comment on above: Patient Position: Sitting; Cuff Location : Left Arm; Cuff Size: Large 11-27-2018 11:37-0500 Body height 158.75 cm Joy Arana [employer], [employer].; [employer], Inc. 11-27-2018 11:37-0500 Body mass index (BMI) [Ratio] 41.94 kg/m2 Joy Blair Cherry Sumit [employer], Inc.; [employer], Inc. 11-27-2018 11:37-0500 Body surface area Derived from formula 2.05 m2 Joy Blair Cherry Sumit [employer] Inc.; [employer], Inc. 11-27-2018 11:37-0500 Body temperature 99.3 [degF] Joy Blair Cherry Sumit [employer], Inc. Comment on above: Method: Oral 11-27-2018 11:37-0500 Body weight 105.69 kg Joy Blair Cherry Sumit [employer], Inc. 11-27-2018 11:37-0500 Diastolic blood pressure 74 mm[Hg] Joy Blair Cherry Sumit [employer], Inc. Comment on above: Patient Position: Sitting; Cuff Location : Left Arm; Cuff Size: Standard 11-27-2018 11:37-0500 Heart rate 88 /min Joy Arana [employer], Inc. Comment on above: Pattern: Regular 11-27-2018 11:37-0500 Systolic blood pressure 124 mm[Hg] Joy Blair Cherry Sumit [employer], Inc. Comment on above: Patient Position: Sitting; Cuff Location : Left Arm; Cuff Size: Standard 08-04-2018 13:49-0400 Body height 158.75 cm Joy Arana [employer], [employer], Inc[employer] 08-04-2018 13:49-0400 Body mass index (BMI) [Ratio] 42.66 kg/m2 Joy Blair [facility], Inc.; [facility] [employer] [facility], Inc. 08-04-2018 13:49-0400 Body surface area Derived from formula 2.07 m2 Joy Blair [facility], Inc.; [facility] [employer] [facility], Inc. 08-04-2018 13:49-0400 Body weight 107.5 kg Joy Blair [facility], Inc.; [facility], Inc[facility] 08-04-2018 13:49-0400 Diastolic blood pressure 82 mm[Hg] Joy Blair [facility], Inc.; [facility], Inc. Comment on above: Patient Position: Sitting; Cuff Location : Left Arm; Cuff Size: Large 08-04-2018 13:49-0400 Heart rate 64 /min Joy Cherry [facility], Inc.; [facility] [employer] [facility], Inc. Comment on above: Pattern: Regular 08-04-2018 13:49-0400 Systolic blood pressure 120 mm[Hg] Joy Blair Cherry [facility], Inc.; [facility] [employer] [facility], Inc. Comment on above: Patient Position: Sitting; Cuff Location : Left Arm; Cuff Size: Large 01-27-2018 13:290500 Body height 158.75 cm Chiquis Newman RN [facility], Inc.; [facility], Inc. 01-27-2018 13:29-0500 Body mass index (BMI) [Ratio] 43.56 kg/m2 Chiquis Newman RN [facility], Inc.; [facility] [place] [facility], Inc. 01-27-2018 13:29-0500 Body surface area Derived from formula 2.09 m2 Chiquis Newman RN [facility], Inc.; [facility] [place] [facility], Inc. 01-27-2018 13:29-0500 Body temperature 97.4 [degF] Chiquis Newman RN [facility], Inc.; [facility] [place] [facility], Inc. Comment on above: Method: Oral 01-27-2018 13:29-0500 Body weight 109.77 kg Chiquis Newman RN [facility], Inc.; [facility], Inc. 01-27-2018 13:29-0500 Diastolic blood pressure 80 mm[Hg] Chiquis Newman RN [facility], Inc.; [facility], Inc. Comment on above: Patient Position: Sitting; Cuff Location : Left Arm; Cuff Size: Standard 01-27-2018 13:29-0500 Heart rate 72 /min Chiquis Newman RN [facility], Inc.; [facility], Inc. Comment on above: Pattern: Regular 01-27-2018 13:29-0500 Systolic blood pressure 121 mm[Hg] Chiquis Newman RN [facility], Inc.; [facility], Inc. Comment on above: Patient Position: Sitting; Cuff Location : Left Arm; Cuff Size: Standard 01-13-2018 13:00-0500 Body height 158.75 cm JOSHUA LIZAMA RN [facility], Inc.; [facility], Inc. 01-13-2018 13:00-0500 Body mass index (BMI) [Ratio] 43.74 kg/m2 JOSHUA LIZAMA RN [facility], Inc.; [facility], Inc. 01-13-2018 13:00-0500 Body surface area Derived from formula 2.09 m2 JOSHUA LIZAMA RN [facility], Inc.; [facility], Inc. 01-13-2018 13:00-0500 Body weight 110.22 kg JOSHUA LIZAMA RN [facility], Inc.; [facility], Inc. 01-13-2018 13:00-0500 Diastolic blood pressure 71 mm[Hg] JOSHUA LIZAMA RN [facility], Inc.; [facility], Inc. Comment on above: Patient Position: Sitting; Cuff Location : Left Arm; Cuff Size: Large 01-13-2018 13:00-0500 Heart rate 80 /min JOSHUA LIZAMA RN [facility], Inc.; [facility], Inc. Comment on above: Pattern: Regular 01-13-2018 13:00-0500 Systolic blood pressure 127 mm[Hg] JOSHUA LIZAMA RN [facility] HospitalPlayed.; [facility]. Comment on above: Patient Position: Sitting; Cuff Location : Left Arm; Cuff Size: Large 04-11-2017 09:49-0400 Body height 158.75 cm ERICKSON ELI MD Work Phone: [facility] HospitalNess Computing; [facility] HospitalPlayed. 04-11-2017 09:49-0400 Body mass index (BMI) [Ratio] 42.48 kg/m2 ERICKSON ELI MD Work Phone: [facility] HospitalN[facility]; [facility]. 04-11-2017 09:49-0400 Body surface area Derived from formula 2.06 m2 ERICKSON ELI MD Work Phone: [facility] HospitalN[facility]; [facility]. 04-11-2017 09:49-0400 Body temperature 98.6 [degF] ERICKSON ELI MD Work Phone: [facility] HospitalN[facility]; [facility] HospitalPlayed. Comment on above: Method: Oral 04-11-2017 09:49-0400 Body weight 107.05 kg ERICKSON ELI MD Work Phone: [facility] HospitalPlayed.; [facility] HospitalPlayed. 04-11-2017 09:49-0400 Diastolic blood pressure 77 mm[Hg] ERICKSON ELI MD Work Phone: [facility] HospitalNess [facility]; [facility]NOTET[facility] HospitalPlayed. Comment on above: Patient Position: Sitting; Cuff Location : Left Arm; Cuff Size: Standard 04-11-2017 09:49-0400 Heart rate 80 /min ERICKSON ELI MD Work Phone: [facility] HospitalNess [facility]; [facility]NOTETex[facility] HospitalPlayed. Comment on above: Pattern: Regular 04-11-2017 09:49-0400 Systolic blood pressure 112 mm[Hg] ERICKSON ELI MD Work Phone: [email or web address].; [facility] HospitalPlayed. Comment on above: Patient Position: Sitting; Cuff Location : Left Arm; Cuff Size: Standard 02-27-2016 13:26-0400 Body height 158.75 cm CHRISTIAN [facility] [employer].; [facility] HospitalHealthTeacher / GoNoodle Inc. 02-27-2016 13:26-0400 Body mass index (BMI) [Ratio] 36.36 kg/m2 CHRISTIAN [facility] Caremerge [facility]a HospitalPlayed.; [facility] HospitalPlayed. 02-27-2016 13:26-0400 Body surface area Derived from formula 1.93 m2 CHRISTIAN [facility] Caremerge Christiana HospitalPlayed.; [facility] Bion[employer]. 02-27-2016 13:26-0400 Body temperature 98.3 [degF] CHRISTIAN [facility] [employer].; [facility] [employer]. Comment on above: Method: Oral 02-27-2016 13:26-0400 Body weight 91.63 kg CHRISTIAN [facility] [employer].; Marrone [employer]ations [facility] [employer]ation, Inc. 02-27-2016 13:26-0400 Diastolic blood pressure 79 mm[Hg] CHRISTIAN [facility] [employer].; [place] [facility] LoHaria Inc. Comment on above: Patient Position: Sitting; Cuff Location : Left Arm; Cuff Size: Standard 02-27-2016 13:26-0400 Heart rate 68 /min CHRISTIANConcordia HealthcareYER [employer].; [employer] [facility] [employer]. Comment on above: Pattern: Regular 02-27-2016 13:26-0400 Systolic blood pressure 115 mm[Hg] Melanie Clark [employer] [facility] [employer].; [employer] [facility] [employer]. Comment on above: Patient Position: Sitting; Cuff Location : Left Arm; Cuff Size: Standard 08-07-2012 13:56-0400 Body height 157.48 cm CHRISTIAN [facility] [employer].; [facility], Inc. 08-07-2012 13:56-0400 Body mass index (BMI) [Ratio] 37.68 kg/m2 [facility] HospitalHealthTeacher / GoNoodle Inc.; [facility], Inc. 08-07-2012 13:56-0400 Body surface area Derived from formula 1.94 m2 [facility] HospitalHealthTeacher / GoNoodle Inc.; [facility], Inc. 08-07-2012 13:56-0400 Body temperature 98 [degF] [facility] HospitalPlayed.; Marrone [employer] [facility] [facility], Inc. Comment on above: Method: Oral 08-07-2012 13:56-0400 Body weight 93.44 kg CHRISTIAN [facility] HospitalPlayed.; Marrone Bio Innovations [facility] [place] [facility], Inc. 08-07-2012 13:56-0400 Diastolic blood pressure 70 mm[Hg] CHRISTIAN [facility] CenterQuaam [facility] HospitalPlayed.; [employer] [facility], Inc. Comment on above: Patient Position: Sitting; Cuff Location : Left Arm; Cuff Size: Standard 08-07-2012 13:56-0400 Heart rate 73 /min CHRISTIAN [facility] Caremerge Christiana HospitalPlayed.; [employer] [facility], Inc. Comment on above: Pattern: Regular 08-07-2012 13:56-0400 Systolic blood pressure 125 mm[Hg] CHRISTIAN [facility] Caremerge Christiana HospitalPlayed.; [employer] [facility], Inc. Comment on above: Patient Position: Sitting; Cuff Location : Left Arm; Cuff Size: Standard 05-29-2012 11:17-0400 Body height 157.48 cm Caprotec BioanalyticsPThe Wadhwa GroupC Adenovir Pharma [facility] HospitalPlayed.; Marrone Bio Innovations [facility] [place] [facility], Inc. 05-29-2012 11:17-0400 Body mass index (BMI) [Ratio] 36.95 kg/m2 Caprotec BioanalyticsPThe Wadhwa GroupC [facility] Caremerge Christiana HospitalHealthTeacher / GoNoodle Inc.; Marrone [employer] [facility] [facility], Inc. 05-29-2012 11:17-0400 Body surface area Derived from formula 1.92 m2 Caprotec BioanalyticsPThe Wadhwa GroupC [facility] CenterQuaam [facility], Inc.; [facility], Inc. 05-29-2012 11:17-0400 Body temperature 98.2 [degF] TYRONE ANTOINEER BALL MILL MIXER-C [facility] CenterQuaam [facility], Inc.; [employer] [facility] [place] [facility], Inc. Comment on above: Method: Oral 05-29-2012 11:17-0400 Body weight 91.63 kg TYRONE TSESafe ShepherdACEER BALL MILL MIXER-C [facility] CenterQuaam [facility], Inc.; [employer] [facility] [place] [facility], Inc. 05-29-2012 11:17-0400 Diastolic blood pressure 68 mm[Hg] TYRONE TSESafe ShepherdZULAYTTER BALL MILL MIXER-C [facility] CenterQuaam [facility], Inc.; [employer] [facility] [place] [facility], Inc. Comment on above: Patient Position: Sitting; Cuff Location : Left Arm; Cuff Size: Standard 05-29-2012 11:17-0400 Heart rate 78 /min [facility] HOSPITALObatechPOPPYER [facility]-C [facility] CenterQuaam [facility], Inc.; [employer], Inc. Comment on above: Pattern: Regular 05-29-2012 11:17-0400 Systolic blood pressure 104 mm[Hg] TYRONE ROSADOTTER BALL MILL MIXER-C [facility] Caremerge [facility], Inc.; [facility], Inc. Comment on above: Patient Position: Sitting; Cuff Location : Left Arm; Cuff Size: Standard 01-30-2011 15:58-0500 Body height 157.48 cm TYRONE TSEStravaPOPPYPAGE HOSPITAL-C [facility] Caremerge [facility], Inc.; [employer] [facility] [place] [facility], Inc. 01-30-2011 15:58-0500 Body mass index (BMI) [Ratio] 35.85 kg/m2 TYRONE StravaPOPPYER BALL MILL MIXER-C [facility] CenterQuaam [facility], Inc.; Marrone Bio Innovations [facility] [place] [facility], Inc. 01-30-2011 15:58-0500 Body surface area Derived from formula 1.9 m2 [facility] HOSPITALObatechWOODWINDS HE[facility]-C [facility], Inc.; [employer] [facility] [place] [facility], Inc. 01-30-2011 15:58-0500 Body temperature 98 [degF] TYRONE [place] [employer] SSDObatechTTER BALL MILL MIXER-C [facility] CenterQuaam [facility], Inc.; [employer] [facility] [place] [facility], Inc. Comment on above: Method: Oral 01-30-2011 15:58-0500 Body weight 88.91 kg TYRONE TSESafe ShepherdZULAYTTER BALL MILL MIXER-C Adenovir Pharma [facility], Inc.; [facility], Inc. 01-30-2011 15:58-0500 Diastolic blood pressure 71 mm[Hg] TYRONE ROSADOTTER BALL MILL MIXER-C [facility], Inc.; [facility], Inc. Comment on above: Patient Position: Sitting; Cuff Location : Left Arm; Cuff Size: Standard 01-30-2011 15:58-0500 Heart rate 93 /min TYRONE TSEZULAYTTER BALL MILL MIXER-C [facility], Inc.; [employer] [facility], Inc. Comment on above: Pattern: Regular 01-30-2011 15:58-0500 Systolic blood pressure 111 mm[Hg] TYRONE ROSADOTTER BALL MILL MIXER-C [facility], Inc.; [facility], Inc. Comment on above: Patient Position: Sitting; Cuff Location : Left Arm; Cuff Size: Standard 12-31-2010 09:30-0500 Body height 157.48 cm TYRONE TSESafe ShepherdACEER BALL MILL MIXER-C Adenovir Pharma [facility], Inc.; [employer] [facility] [place] [facility], Inc. 12-31-2010 09:30-0500 Body mass index (BMI) [Ratio] 35.67 kg/m2 TYRONE [place] H[employer] RESOURCE SSDACEER BALL MILL MIXER-C [facility], Inc.; [employer] [facility] [place] [facility], Inc. 12-31-2010 09:30-0500 Body surface area Derived from formula 1.89 m2 TYRONE [place] [employer] SSDObatechER BALL MILL MIXER-C [facility], Inc.; [facility], Inc. 12-31-2010 09:30-0500 Body temperature 97.6 [degF] TYRONE [place] [employer] SSDObatechTTER BALL MILL MIXER-C [facility], Inc.; [facility], Inc. Comment on above: Method: Oral 12-31-2010 09:30-0500 Body weight 88.45 kg TYRONE TSESafe ShepherdACEER BALL MILL MIXER-C [facility], Inc.; [employer], Inc. 12-31-2010 09:30-0500 Diastolic blood pressure 74 mm[Hg] TYRONE ENGLISHTETTER BALL MILL MIXER-C [facility], Inc.; [employer] [facility], Inc. Comment on above: Patient Position: Sitting; Cuff Location : Left Arm; Cuff Size: Large 12-31-2010 09:30-0500 Heart rate 91 /min TYRONE TSESafe ShepherdTETTER BALL MILL MIXER-C [facility], Inc.; [employer] [facility] [place] [facility], Inc. Comment on above: Pattern: Regular 12-31-2010 09:30-0500 Systolic blood pressure 106 mm[Hg] TYRONE TSESafe ShepherdTETTER BALL MILL MIXER-C [facility], Inc.; [employer] [facility], Inc. Comment on above: Patient Position: Sitting; Cuff Location : Left Arm; Cuff Size: Large 11-19-2010 13:44-0500 Body height 157.48 cm TYRONE International Pet Grooming AcademyTTER BALL MILL MIXER-C [facility], Inc.; [employer] [facility], Inc. 11-19-2010 13:44-0500 Body mass index (BMI) [Ratio] 35.85 kg/m2 TYRONE StravaTTER BALL MILL MIXER-C [facility], Inc.; Marrone [employer] [facility], Inc. 11-19-2010 13:44-0500 Body surface area Derived from formula 1.9 m2 [facility] COMMUN[facility] HOSPITALLocalcents, Inc. ([email or web address])ER BALL MILL MIXER-C [facility] CenterQuaam [facility], Inc.; Marrone [employer] [facility], Inc. 11-19-2010 13:44-0500 Body weight 88.91 kg TYRONE StravaTTER BALL MILL MIXER-C [facility] CenterQu[facility], Inc.; Marrone [employer] [facility], Inc. 11-19-2010 13:44-0500 Diastolic blood pressure 73 mm[Hg] TYRONE Safe ShepherdTETTER BALL MILL MIXER-C [facility], Inc.; [employer] [facility], Inc. Comment on above: Patient Position: Sitting; Cuff Location : Left Arm; Cuff Size: Large 11-19-2010 13:44-0500 Heart rate 73 /min TYRONE TSESafe ShepherdTETTER BALL MILL MIXER-C [facility], Inc.; [employer] [facility] [place] [facility], Inc. Comment on above: Pattern: Regular 11-19-2010 13:44-0500 Systolic blood pressure 106 mm[Hg] TYRONE GARCIA BALL MILL MIXER-C [employer], Inc. Comment on above: Patient Position: Sitting; Cuff Location : Left Arm; Cuff Size: Large Encounters Encounter Date Encounter Type Care Provider Facility Start: 09-05-2025 ambulatory Vivek Dominguez Facility:[facility] Start: 07-06-2025 End: 07-06-2025 Historical Summary TYRONE GARCIA BALL MILL MIXER-C [facility] [employer] [employer] Start: 06-24-2025 End: 06-24-[address] Burgos DO Work Phone: [facility] Pulmonary/Sleep/Critic al Care Comment on above: Biometrics Consultant - Elvis ching (Home WATERS) Patient Question Start: 05-10-2025 End: 05-10-2025 Refill Lesli Hamm APRN.REPORTS ANALYSIS MANAGER Work Phone: [facility] Pulmonary/Sleep/Critic al Care Comment on above: Refill Request Start: 05-05-2025 End: 05-05-2025 Historical Summary TYRONE DUENASP-C [employer], [employer] Start: 05-04-2025 Review TYRONE SARAH BALL MILL MIXER-C [employer], [employer]. Start: 05-04-2025 End: 05-04-2025 Nutrition therapy TYRONE DUENASP-C [facility] [employer] Start: 05-02-2025 End: 05-02-2025 Office outpatient visit 25 minutes TYRONE GARCIA BALL MILL MIXER-C [employer] Start: 04-06-2025 ambulatory DEBRA Perez ty:[id number] Start: 04-06-2025 End: 04-06-2025 Subsequent hospital visit by physician Diagnostic Mammo [facility] MAMMOGRAPHY Comment on above: ABN MAMMOGRAM Start: 03-09-2025 End: 04-18-2025 Refill Precious Hodges APRN.REPORTS ANALYSIS MANAGER Work Phone: [facility] Pulmonary/Sleep/Critic al Care Comment on above: Refill Request Start: 02-27-2025 End: 03-01-2025 Refill Lesli Hamm APRN.CNP Work Phone: [facility] Pulmonary/Sleep/Critic al Care Comment on above: Refill Request Start: 02-24-2025 ambulatory DEBRA Perez ty:[id number] Start: 02-24-2025 End: 02-24-2025 Subsequent hospital visit by physician Screen Mammo [facility] MAMMOGRAPHY Comment on above: Encounter for screen ing mammogram for malignant neoplasm of breast [Z12.31] Start: 02-24-2025 End: 02-24-2025 Patient encounter procedure Lesli Hamm APRN.REPORTS ANALYSIS MANAGER Work Phone: [facility] Pulmonary/Sleep/Critic al Care Comment on above: Allergic rhinitis, u nspecified seasonality, unspecified trigger (Primary Dx); Moderate persistent asthma without complication; Obesity, Class III, BMI >= 40; Former tobacco use Start: 02-24-2025 End: 02-24-2025 ambulatory ELSLI HAMM Facility:[id number] Start: 06-15-2024 End: 06-15-2024 Patient encounter procedure Lesli Hamm APRN.REPORTS ANALYSIS MANAGER Work Phone: [facility] Pulmonary/Sleep/Critic al Care Comment on above: Moderate persistent asthma without complication (Primary Dx); Allergic rhinitis, unspecified seasonality, unspecified trigger; Obesity, Class III, BMI >= 40 Start: 06-15-[address] Burgos DO Work Phone: [facility] Pulmonary/Sleep/Critic al Care Comment on above: Biometrics Consultant - O ther (Home WATERS) Start: 05-05-2024 Refill Lesli Hamm APRN.REPORTS ANALYSIS MANAGER Work Phone: [facility] Pulmonary/Sleep/Critic al Care Comment on above: Refill Request Start: 05-04-2024 Refill Lesli Hamm APRN.REPORTS ANALYSIS MANAGER Work Phone: [facility] Pulmonary/Sleep/Critic al Care Comment on above: Refill Request Start: 04-01-2024 Refill Lesli Hamm PSYCHOLOGICAL AIDE.REPORTS ANALYSIS MANAGER Work Phone: [facility] Pulmonary/Sleep/Critic al Care Comment on above: Refill Request Start: 05-05-2023 End: 05-05-2023 ambulatory LESLI HAMM Facility:[facility] Start: 05-05-2023 End: 05-05-2023 Patient encounter procedure Lesli Hamm PSYCHOLOGICAL AIDE.REPORTS ANALYSIS MANAGER Work Phone: [facility] Pulmonary/Sleep/Critic al Care Comment on above: Obesity, Class III, BMI >= 40 (Primary Dx); Moderate persistent asthma without complication; Allergic rhinitis, unspecified seasonality, unspecified trigger Start: 04-29-2023 End: 04-29-2023 ambulatory [facility] Start: 04-08-2023 End: 04-08-2023 ambulatory [facility] Start: 03-18-2023 End: 03-18-2023 ambulatory [facility] Start: 03-03-2023 End: 03-03-2023 ambulatory [facility] Start: 02-25-2023 End: 02-25-2023 [facility] Start: 02-19-2023 End: 02-19-2023 [facility] Start: 02-11-2023 End: 02-11-2023 Office outpatient visit 25 minutes TYRONE BACH-iYna [facility] Start: 02-11-2023 End: 02-11-2023 Preoperative state TYRONE BACH-Yina [facility], Inc.; [facility]. Start: 02-03-2023 End: 02-03-2023 [facility] Start: 12-23-2022 End: 12-23-2022 ambulatory [facility] Start: 12-12-2022 ambulatory [facility] Facilit y:UNI Start: 12-12-2022 End: 12-12-2022 Subsequent hospital visit by physician Provider [facility] Start: 12-04-2022 End: 12-04-2022 Transition of Care TYRONE DIAZ [facility] Start: 10-30-2022 End: 10-30-2022 ambulatory LESLI HAMM Facility:[facility] Start: 10-30-2022 End: 10-30-2022 Patient encounter procedure Lesli Hamm PSYCHOLOGICAL AIDE.REPORTS ANALYSIS MANAGER Work Phone: [facility] Pulmonary/Sleep/Critic al Care Comment on above: Moderate persistent asthma without complication (Primary Dx); Allergic rhinitis, unspecified seasonality, unspecified trigger; Obesity, Class III, BMI >= 40 Start: 04-18-2022 Telephone encounter Lesli Hamm PSYCHOLOGICAL AIDE.REPORTS ANALYSIS MANAGER Work Phone: [facility] Pulmonary/Sleep/Critic al Care Comment on above: Insurance Authorizat ion (Breo Ellipta 200-25 mcg) Start: 03-31-2022 ambulatory PHYSICIAN MISC Facility :[facility] Start: 03-31-2022 End: 03-31-2022 Subsequent hospital visit by physician Provider [facility] Comment on above: RIGHT FOOT PAIN, LAR GE BONE SPUR IN HEEL Start: 03-01-2022 End: 03-30-2022 ambulatory PHYSICIAN MISC Facility:[facility] Start: 03-01-2022 End: 03-01-2022 Subsequent hospital visit by physician [facility] Comment on above: RIGHT FOOT PAIN, LAR GE BONE SPUR IN HEEL Start: 02-25-2022 End: 02-25-2022 Subsequent hospital visit by physician Provider [facility] Comment on above: RIGHT FOOT PAIN, LAR GE BONE SPUR IN HEEL Start: 02-25-2022 End: 02-28-2022 ambulatory PHYSICIAN MISC Facility:[facility] Start: 02-25-2022 End: 02-25-2022 Subsequent hospital visit by physician Provider [facility] Comment on above: RIGHT FOOT PAIN, LAR GE BONE SPUR IN HEEL Start: 01-01-2022 End: 01-01-2022 Office outpatient visit 15 minutes TYRONE GARCIA [employer] Start: 02-07-2021 End: 02-07-2021 Medication Refill/Order TYRONE HOMACKTTER [employer] Start: 02-01-2021 End: 02-01-2021 Office outpatient visit 15 minutes TYRONE ROSADOTTER [employer] [facility] Start: 10-23-2020 End: 10-23-[address] SN[facility] Start: 04-06-2020 End: 04-06-2020 Office outpatient visit 15 minutes TYRONE ROSADOPOPPYER [employer] [facility] Start: 01-18-2020 End: 01-18-2020 Office outpatient visit 15 minutes TYRONE ROSADOTTER [employer] [facility] Start: 07-28-2019 End: 07-28-2019 Medication Refill/Order TYRONE ALONZOTTER [employer] [facility] Start: 07-27-2019 End: 07-27-2019 Office outpatient visit 15 minutes TYRONE ROSADOTTER [employer] [facility] Start: 03-02-2019 End: 03-02-2019 Medication Refill/Order TYRONE ROSADOTTER [employer] [facility] Start: 01-12-2019 End: 01-12-2019 Medication Refill/Order TYRONE ROSADOTTER [employer] [facility] Start: 01-05-2019 End: 01-05-2019 Office outpatient visit 15 minutes TYRONE TSEMACKTTER [employer] [facility] Start: 11-27-2018 End: 11-27-2018 Office outpatient visit 15 minutes TYRONE TSEMACKTTER [employer]-C [facility] Start: 08-04-2018 End: 08-04-2018 Office outpatient visit 15 minutes TYRONE TSEMACKTTER [employer] [facility] Start: 04-17-2018 End: 04-17-2018 Medication Refill/Order TYRONE GARCIA [employer] Start: 02-06-2018 End: 02-06-2018 Results Review TYRONE GARCIA [employer] [facility] Start: 02-03-2018 End: 02-03-2018 Results Review TYRONE GARCIA [employer] [facility] Start: 02-02-2018 End: 02-02-2018 Lab Only TYRONE GARCIA [employer] [facility] Start: 01-27-2018 End: 01-27-2018 Medication Refill/Order TYRONE GARCIA [employer] [facility] Start: 01-27-2018 End: 01-27-2018 Office outpatient visit 25 minutes TYRONE GARCIA [employer] [facility] Start: 01-27-2018 End: 01-27-2018 Patient encounter status TYRONE GARCIA [employer]C [facility] Start: 01-13-2018 End: 01-13-2018 Lab Only TYRONE GARCIA [employer] [facility] Start: 01-13-2018 End: 01-13-2018 Office outpatient visit 15 minutes TYRONE GARCIA [employer] [facility] Start: 08-19-2017 End: 08-19-2017 Medication Refill/Order TYRONE GARCIA [employer]-C [facility] Start: 04-11-2017 End: 04-11-2017 Office outpatient visit 15 minutes TYRONE GARCIA [employer] [facility] Start: 02-27-2016 End: 02-27-2016 Office outpatient visit 15 minutes TYRONE GARCIA [employer]C [facility] Start: 11-10-2012 End: 11-10-2012 Results Review TYRONE GARCIA [facility] Start: 11-04-2012 End: 11-04-2012 Medication Refill/Order TYRONE DUENASP-Yina [facility] Start: 08-14-2012 End: 08-14-2012 Medication Refill/Order TYRONE GARCIA [employer] Start: 08-10-2012 End: 08-10-2012 Results Review TYRONE DUENASP-Yina [facility] Start: 08-07-2012 End: 08-07-2012 Patient encounter procedure TYRONE DUENASP-Yina [facility] Start: 05-29-2012 End: 05-29-2012 Patient encounter procedure TYRONE DUENASP-Yina [facility] Start: 05-29-2012 End: 05-29-2012 Historical Summary TYRONE DUENASP-Yina [facility] Start: 01-30-2011 End: 01-30-2011 Patient encounter procedure TYRONE DUENASP-Yina [facility] Start: 12-31-2010 End: 12-31-2010 Patient encounter procedure TYRONE DUENASP-Yina [facility] Start: 11-19-2010 End: 11-19-2010 Patient encounter procedure TYRONE GARCIA [facility] Start: 02-22-2009 Documentation procedure Debra Venegas MD Work Phone: [facility] Start: 02-22-2009 Historic EMR Debra neff MD Work Phone: [facility] Start: 07-01-[address] [facility] Start: 07-01-2008 Historic EMR Provider [facility] Start: 06-08-2007 Documentation procedure Carmelo Dow Jr. Work Phone: [facility] Start: 06-08-2007 Historic EMR Carmelo Lees on Work Phone: IF [facility] Start: 01-23-2006 Documentation procedure Carmelo Dow Work Phone: [facility] Start: 01-23-2006 Historic EMR Carmelo Lees on Work Phone: IF [facility] Admission to [facility] ANDRY CHERRY B[employer] M[employer]ER-BC Work Phone: [facility]; [facility] Procedures Date Procedure Procedure Detail Performing Clinician Start: 04-06-2025 Digital breast tomosynthesis unilateral Debra Venegas MD Work Phone: Start: 02-11-2023 End: 02-11-2023 Dischrg meds reconciled w/current med list Kamla CHERRY MD Work Phone: Start: 12-12-2022 Radex foot complete minimum 3 views Provider [facility] Start: 01-01-2022 End: 01-01-2022 Dischrg meds reconciled w/current med list Kamla CHERRY MD Work Phone: Start: 02-01-2021 End: 02-01-2021 Dischrg meds reconciled w/current med list TYRONE GARCIA [employer] Start: 02-01-2021 End: 02-01-2021 Urinary Incontinence TYRONE GARCIA [employer] Comment on above: Abnormal. Occasional incontinence. Start: 04-06-2020 End: 04-06-2020 Therapeutic prophylactic/dx injection subq/im TYRONE GARCIA [employer] Start: 04-06-2020 End: 04-06-2020 Triamcinolone acet inj NOS TYRONE ESPANA [employer] Start: 01-18-2020 End: 01-18-2020 Dischrg meds reconciled w/current med list Kamla CHERRY MD Work Phone: Start: 07-27-2019 End: 07-27-2019 Dischrg meds reconciled w/current med list Kamla CHERRY MD Work Phone: Start: 01-05-2019 End: 01-05-2019 Dischrg meds reconciled w/current med list Kamla CHERRY MD Work Phone: Start: 11-27-2018 End: 11-27-2018 Ceftriaxone sodium injection ERICKSON ELI MD Work Phone: Start: 11-27-2018 End: 11-27-2018 Dischrg meds reconciled w/current med list ERICKSON ELI MD Work Phone: Start: 11-27-2018 End: 11-27-2018 Therapeutic prophylactic/dx injection subq/im ERICKSON ELI MD Work Phone: Start: 01-27-2018 End: 01-27-2018 Adacel TYRONE GARCIA [employer] Comment on above: Discussed. recommend get at HD or pharmacy. Start: 01-27-2018 End: 01-27-2018 Obtaining screen pap smear Kamla CHERRY MD Work Phone: Comment on above: Normal. 01/2023; disc ussed that its time for another Pap Start: 10-31-2012 End: 10-31-2012 CT Abd/Pel NEG ANDRY CHERRY [employer]BC Work Phone: Start: 02-22-2009 SURGICAL PATHOLOGY, CONVERTED Debra Venegas MD Work Phone: Start: 12-01-2008 End: 12-01-2008 D&C TYRONE GARCIA [employer] Start: 06-30-2008 CYTOLOGY ETYMOLOGY TEACHER, CONVERTED Provider [facility] Start: 06-05-2007 CYTOLOGY ETYMOLOGY TEACHER, CONVERTED Carmelo Dow Work Phone: Start: 01-21-2006 CYTOLOGY ETYMOLOGY TEACHER, CONVERTED Carmelo Dow Work Phone: Adenoid excision ANDRY OBANDO [employer]BC Work Phone: Comment on above: and adenoids, as chi ld. Left eardrum graft TYRONE Harris OFJOVI [employer]-C Other bilateral liga tion and division of fallopian tubes TYRONE GARCIA [employer]C THumb surgery TYRONE HOFSTE TTER [employer]-C Plan of Treatment Date Care Activity Detail Author Start: 09-30-2027 Screening for malign ant neoplasm of cervix Cervical Cancer Screening [facility] Start: 02-24-2026 Screening for malign ant neoplasm of breast Mammogram Screening [facility] Start: 08-01-2025 Influenza vaccination C [facility] Start: 05-02-2025 Hemoglobin glycosyla kwame a1c HEMOGLOBIN GLYCLATED (HGB A1C) (97326) Start: 02-May-2025 14:03-04:00 Request [email or web address]; [employer] Start: 05-02-2025 Cyanocobalamin vitam in b-12 VITAMIN B-12 (CYANOCOBALAMIN) (33339) Start: 02-May-2025 13:58-04:00 Request [email or web address]; [employer] Start: 05-02-2025 Assay of iron IRON (79091) S tart: 02-May-2025 13:58-04:00 Request [email or web address]; [employer] Start: 05-02-2025 Comprehensive metabo lic panel CMP - COMPREHENSIVE METABOLIC PANEL (80978) Start: 02-May-2025 13:56-04:00 Request [email or web address]; [employer] Start: 05-02-2025 Assay of thyroid stimulating hormone tsh TSH (THYROID STIMULATING HORMONE) (22223) Start: 02-May-2025 13:56-04:00 Request [email or web address]; [employer] Start: 05-02-2025 Blood count complete auto&auto difrntl wbc CBC, PLATELETS & AUT DIFF ([id number]) Start: 02-May-2025 13:56-04:00 Request [email or web address]; [employer] Start: 08-31-2024 End: 08-31-2024 Patient encounter procedure 08/31/2024 11:00 AM EDT Office Visit [facility] Pulmonary/Sleep/Critica l Care [address] [place] [address] Lesli Hamm, PSYCHOLOGICAL AIDE.[facility] [address] [place] [address] 6 weeks f/u [facility] Pulmonary/Sleep/Cri tical Care Comment on above: 6 weeks f/u Start: 08-01-2024 Covid-19 Vaccine ( season) Covid-19 Vaccine ( season) [facility] Start: 08-01-2024 Influenza vaccination C [facility] Start: 06-15-2024 End: 06-15-2024 Patient encounter procedure [facility] Pulmonary/Sleep/Cri tical Care Comment on above: 6 month follow up 6 month follow up/co nfirmed by phone Start: 12-01-2023 Behavioral Health Screening Behavioral Health Screening [facility] Start: 08-01-2023 Covid-19 Vaccine () Covid-19 Vaccine () [facility] Start: 08-01-2023 Influenza vaccination C [facility] Start: 12-01-2022 [facility] Start: 08-01-2022 [facility] Start: 12-01-2021 DEPRESSION ASSESSMENT [facility] Start: 08-01-2021 Influenza vaccination INFLUENZA (#1) [facility] Start: 02-01-2021 Patient Education [facility] Start: 04-06-2020 Patient Education [facility] Start: 11-27-2018 Patient Education [facility] Start: 01-13-2018 Culture bct isol&prs mptv id isolate ea urine URINE MACI CULTURE-ID ([id number]) Start: 13-Jan-2018 13:37-05:00 Request [employer] Start: 04-11-2017 Patient Education BRONCHITIS, ACUTE Indication: Mild intermittent asthma without complication Start: 11-Apr-2017 Instruction Type: Patient Education [facility]; [facility] Start: 2015 HPV TESTING HPV TESTING [facility] Start: 2015 Screening for malign ant neoplasm of cervix HPV Testing [facility] Start: 08-14-2012 End: 08-14-2012 Collj & interpj physiol data min 30 min ea 30 d QUERY OARRS REPORT ([id number]) Date: 14-Aug-2012 [facility] StreetInvestor; [facility] Start: 08-07-2012 Patient Education UTI - WOMEN Indication: DYSURIA (Renamed from Difficult or painful urination) Start: 07-Aug-2012 Instruction Type: Patient Education [facility] StreetInvestor; [facility] 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 ANNUAL PCP TEAM CHRONIC DISEASE VISIT [facility] Start: 2003 Anxiety Screening Anxiety Screening [facility] Start: 2003 Depression Screening Depression Scre ening [facility] Start: 2003 HEPATITIS C SCREENING HEPATITIS C [facility] Start: 2003 Hepatitis C screening Hepatitis C [facility] Start: 2003 HIV SCREENING HIV SCREENING [facility] Start: 2003 HIV screening HIV Screening [facility] Start: 2003 SPIROMETRY SPIROMETRY [facility] Start: 1997 Adult depression screening assessment DEPRESSION SCREENING [facility] Start: 1996 Urine microalbumin profile [facility] Start: 1991 PNEUMOCOCCAL (1 - PCV) PNEUMOCOCCAL (1 - PCV) [facility] Start: 1991 Pneumococcal vaccination [facility] Start: 1990 COVID-19 VACCINE (#1) COVID-19 VACCI NE (#1) [facility] Start: 1990 COVID-19 VACCINE (1) COVID-19 VACCIN E (1) [facility] Start: 1985 COVID-19 VACCINE (#1) COVID-19 VACCI NE (#1) [facility] Start: 1985 HEPATITIS B (1 of 3 - 3-dose series) HEPATITIS B (1 of 3 - 3-dose series) [facility] Start: 1985 Hepatitis B Vaccine (1 of 3 - 3-dose series) Hepatitis B Vaccine (1 of 3 - 3-dose series) [facility] Immunizations Immunization Date Immunization Notes Care Provider [facility] 09-17-1997 measles, mumps and rubella virus vaccine Lesli Devault PSYCHOLOGICAL AIDE.REPORTS ANALYSIS MANAGER Work Phone: [facility] 07-24-1990 diphtheria, tetanus toxoids and acellular pertussis vaccine, unspecified formulation Lesli Devault PSYCHOLOGICAL AIDE.REPORTS ANALYSIS MANAGER Work Phone: [facility] 07-24-1990 tetanus toxoid, reduced diphtheria toxoid, and acellular pertussis vaccine, adsorbed Lesli Devault PSYCHOLOGICAL AIDE.REPORTS ANALYSIS MANAGER Work Phone: [facility] 04-25-1987 diphtheria, tetanus toxoids and acellular pertussis vaccine, unspecified formulation Lesli Devault PSYCHOLOGICAL AIDE.REPORTS ANALYSIS MANAGER Work Phone: [facility] 04-25-1987 tetanus toxoid, reduced diphtheria toxoid, and acellular pertussis vaccine, adsorbed Lesli Devault PSYCHOLOGICAL AIDE.REPORTS ANALYSIS MANAGER Work Phone: [facility] 04-25-1987 trivalent poliovirus vaccine, live, oral Lesli Felixault PSYCHOLOGICAL AIDE.REPORTS ANALYSIS MANAGER Work Phone: [facility] 01-03-1987 measles, mumps and rubella virus vaccine Lesli Devault PSYCHOLOGICAL AIDE.REPORTS ANALYSIS MANAGER Work Phone: [facility] 02-14-1986 diphtheria, tetanus toxoids and acellular pertussis vaccine Lesli Devault PSYCHOLOGICAL AIDE.[facility] Work Phone: [facility] 02-14-1986 diphtheria, tetanus toxoids and pertussis vaccine Lesli Devault PSYCHOLOGICAL AIDE.REPORTS ANALYSIS MANAGER Work Phone: [facility] 02-14-1986 trivalent poliovirus vaccine, live, oral Lesli Devault PSYCHOLOGICAL AIDE.REPORTS ANALYSIS MANAGER Work Phone: [facility] 1985 diphtheria, tetanus toxoids and acellular pertussis vaccine Lesli Devault PSYCHOLOGICAL AIDE.REPORTS ANALYSIS MANAGER Work Phone: [facility] 1985 diphtheria, tetanus toxoids and pertussis vaccine Lesli Devault PSYCHOLOGICAL AIDE.REPORTS ANALYSIS MANAGER Work Phone: [facility] 1985 trivalent poliovirus vaccine, live, oral Lesli Devault PSYCHOLOGICAL AIDE.[facility] Work Phone: [facility] 1985 diphtheria, tetanus toxoids and acellular pertussis vaccine Lesli Devault PSYCHOLOGICAL AIDE.[facility] Work Phone: [facility] 1985 diphtheria, tetanus toxoids and pertussis vaccine Lesli Devault PSYCHOLOGICAL AIDE.[facility] Work Phone: [facility] 1985 trivalent poliovirus vaccine, live, oral Lesli Devault PSYCHOLOGICAL AIDE.[facility] Work Phone: [facility] influenza virus vaccine, unspecified formulation TYRONE BACH-Yina [facility]. Comment on above: Discussed. 01/05/2019 - encouraged to get at pharmacy SIMIN Payers Date Payer Category Payer Self-pay 2022 Unknown [id number] 2016 Medicaid [place] [employer] MED[place] [id number] 2016-Present [phone] [place] [address] Medicaid [id number] 2016 Medicaid [id number] 2016 Unknown [id number] 1985 Unknown [id number] Unknown [id number] Unknown [id number] Unknown [id number] Unknown [id number] Unknown [id number] Unknown [employer]ICA[employer] HMO Social History Date Type Detail Facility Start: 03-05-2021 End: 05-05-2023 Tobacco smoking status NHIS Ex-smoker [facility] Start: 11-30-2009 End: 11-30-2019 History of tobacco use Current smoker [facility] Start: 11-30-2009 End: 11-30-2019 History of tobacco use Cigarette Smoker [facility] Start: 03-05-2021 End: 02-24-2025 Cigarettes smoked current (pack per day) - Reported 1 [facility]; [facility] Start: 03-05-2021 End: 05-05-2023 Tobacco use and exposure Smokeless tobacco non-user [facility] Start: 10-18-2021 End: 12-16-2023 Alcohol intake Current drinker of alcohol (finding) [facility] Start: 1985 Sex Assigned At Not on file C [facility] Start: 04-07-2022 End: 10-30-2022 Exposure to SARS-CoV-2 (event) Not sure [facility] Tobacco smoking stat us MDIS Tobacco smoking consumption unknown [facility] Start: 05-05-2023 End: 02-24-2025 Tobacco use panel [facility] National Score (1-10 0), lower number is lower risk 61 [facility] Alcohol Use: Alcohol Use: ; 1 to 7 drinks per week. 1 drink per occasion. [facility] Highest Education Le aram Attained: Highest Education Level Attained: ; High school graduate. [facility].; [facility] Marital status: Marital status: ; . [facility].; [facility] Female [facility].; [facility] Work Phone: Smokes tobacco daily [facility].; [facility] Work Phone: Clinical Notes 02-26-2022 to 06-24-2025 Telephone Encounter - Inder Rojas OCCA - 06/24/2025 10:13 AM EDTTelephone Encounter - Inder Rojas OCCA - 06/24/2025 10:13 AM EDTCDinorah willett RT(R) - 02/24/2025 12:00 PM EDT Note Date & Type Note Facility 06-24-2025 Telephone encounter Note Outcome Approved today by [employer] 2017 Your PA request for [id number] was approved for 365 days. The PA# assigned is [id number]. Effective Date: 06/24/2025 Authorization Expiration Date: 06/23/2026 [facility] 06-24-2025 Miscellaneous Notes Outcome Approved today by [employer] 2017 Your PA request for [id number] was approved for 365 days. The PA# assigned is [id number]. Effective Date: 06/24/2025 Authorization Expiration Date: 06/23/2026 Status Sent to Plan today via [facility] Drug Trelegy Ellipta 200-62.5-25MCG/ACT aerosol powder documented in this encounter [facility] 06-24-2025 Telephone encounter Note Refills were sent in January with 11 refills PA submitted [facility] 06-24-2025 Miscellaneous Notes Refills were sent in January with 11 refills PA submitted Patient called in stating she needs a refill on her trelegy but the pharmacy stated it needs a prior auth. Please advise. documented in this encounter [facility] 06-24-2025 Telephone encounter Note Status Sent to Plan today via [facility] Trelegy Ellipta 200-62.5-25MCG/ACT aerosol powder [facility] 06-24-2025 Telephone encounter Note Patient called in stating she needs a refill on her trelegy but the pharmacy stated it needs a prior auth. Please advise. [facility] 05-10-2025 Telephone encounter Note Prescription Refill Information The patient has been identified by name and date of : Yes Caregiver verified no other encounters exist for this prescription request: Yes Caregiver confirmed with patient/requestor that no other refills are due, in the near future, with this provider at this time: Yes The last office visit in the department: 02/24/2025 Does the patient have a future office visit with this provider/department: No Requested Prescriptions Pending Prescriptions Disp Refills montelukast (SINGULAIR) 10 mg tablet [Pharmacy Med Name: montelukast 10 mg tablet] 30 tablet 8 Sig: TAKE 1 TABLET BY MOUTH EVERY NIGHT AT BEDTIME cetirizine (ZYRTEC) 10 mg tablet [Pharmacy Med Name: cetirizine 10 mg tablet] 30 tablet 8 Sig: TAKE 1 TABLET BY MOUTH ONCE DAILY Albuterol Sulfate 0.63 mg/3 mL nebulizer solution [Pharmacy Med Name: albuterol sulfate 0.63 mg/3 mL solution for nebulization] 300 mL 8 Sig: INHALE 1 (ONE) vial via NEBULIZER EVERY 6 HOURS NEEDED FOR WHEEZING or SHORTNESS OF BREATH Elida Carpenter MA May 10, 2025 8:04 AM [facility] 05-10-2025 Miscellaneous Notes Prescription Refill Information The patient has been identified by name and date of : Yes Caregiver verified no other encounters exist for this prescription request: Yes Caregiver confirmed with patient/requestor that no other refills are due, in the near future, with this provider at this time: Yes The last office visit in the department: 02/24/2025 Does the patient have a future office visit with this provider/department: No Requested Prescriptions Pending Prescriptions Disp Refills montelukast (SINGULAIR) 10 mg tablet [Pharmacy Med Name: montelukast 10 mg tablet] 30 tablet 8 Sig: TAKE 1 TABLET BY MOUTH EVERY NIGHT AT BEDTIME cetirizine (ZYRTEC) 10 mg tablet [Pharmacy Med Name: cetirizine 10 mg tablet] 30 tablet 8 Sig: TAKE 1 TABLET BY MOUTH ONCE DAILY Albuterol Sulfate 0.63 mg/3 mL nebulizer solution [Pharmacy Med Name: albuterol sulfate 0.63 mg/3 mL solution for nebulization] 300 mL 8 Sig: INHALE 1 (ONE) vial via NEBULIZER EVERY 6 HOURS NEEDED FOR WHEEZING or SHORTNESS OF BREATH Elida Carpenter MA May 10, 2025 8:04 AM documented in this encounter [facility] 03-10-2025 Telephone encounter Note Please refuse. Elida Carpenter MA [facility] 03-10-2025 Miscellaneous Notes Please refuse. Elida Carpenter MA documented in this encounter [facility] 02-28-2025 Telephone encounter Note Patient called and stated she don't need a refill. Andra Raygoza MA [facility] 02-28-2025 Miscellaneous Notes Patient called and stated she don't need a refill. Andra Raygoza MA Attempted to call patient but there was no answer. Left a message on voicemail requesting a return call. ANI Burger Call to see if patient needs this. documented in this encounter [facility] 02-28-2025 Telephone encounter Note Attempted to call patient but there was no answer. Left a message on voicemail requesting a return call. ANI Burger [facility] 02-28-2025 Telephone encounter Note Call to see if patient needs this. [facility] 02-24-2025 History of Present illness Narrative Radiology Service Progress Note PATIENT NAME: Raine Solomon DATE OF SERVICE: February 24, 2025 TIME: 11:56 AM PATIENT IDENTITY VERIFICATION COMPLETED USING TWO (2) IDENTIFIERS: Name and Date of confirmed by patient verbally and Name and Date of confirmed by identification band. FALL SCREENING: Has the patient had 2 falls in the last year or 1 fall with injury or currently using an Ambulatory Assistive Device (Walker, Cane, Wheelchair, Crutches, etc.)? No PATIENT GENDER DATA: Assigned female at . status: : No status: NO. PATIENT RELEVANT IMPLANT DATA REVIEWED: Not Applicable PATIENT PRESENTS WITH AN IMPLANTABLE OR ATTACHED HOUSEKEEPING LEAD: No RADIOLOGY DEPARTMENT: Mammography PERIPHERAL IV DATA: Not applicable SIGNED BY: RT Sharifa(Jon) February 24, 2025 11:56 AM documented in this encounter [facility] 02-24-2025 Note HNO ID: [id number] Author: DINORAH PULIDO RT(R) Service: ? Author Type: Technologist Type: Progress Notes Filed: 02/24/2025 11:56 Note Text: Radiology Service Progress Note PATIENT NAME: Raine Solomon DATE OF SERVICE: February 24, 2025 TIME: 11:56 AM PATIENT IDENTITY VERIFICATION COMPLETED USING TWO (2) IDENTIFIERS: Name and Date of confirmed by patient verbally and Name and Date of confirmed by identification band. FALL SCREENING: Has the patient had 2 falls in the last year or 1 fall with injury or currently using an Ambulatory Assistive Device (Walker, Cane, Wheelchair, Crutches, etc.)? No PATIENT GENDER DATA: Assigned female at . status: : No status: NO. PATIENT RELEVANT IMPLANT DATA REVIEWED: Not Applicable PATIENT PRESENTS WITH AN IMPLANTABLE OR ATTACHED HOUSEKEEPING LEAD: No RADIOLOGY DEPARTMENT: Mammography PERIPHERAL IV DATA: Not applicable SIGNED BY: RT Sharifa(Jon) February 24, 2025 11:56 AM [facility] 02-24-2025 Note HNO ID: [id number] Author: LESLI HAMM APRN.REPORTS ANALYSIS MANAGER Service: ? Author Type: Nurse Practitioner Type: Progress Notes Filed: 02/24/2025 10:36 Note Text: [facility] Department of Pulmonary AND Sleep Medicine Lesli Hamm APRN.REPORTS ANALYSIS MANAGER Pulmonary Progress Note REFERRING PROVIDER: No ref. provider found Raine Solomon is a 39 year old female who is returning for follow up evaluation of asthma and shortness of breath. History of Illness Since Last Visit: As any recent hospitalizations or ED visits with respiratory complaints. She continues with Trelegy, does admit to missing days here and there. Encouraged to take consistently. She does feel she has had worsening dyspnea, chest tightness/wheezing over the last month. She is using her albuterol more for symptom relief. She denies any complaints of cough, fever, or chills. She does complain of worsening allergy symptoms with clear rhinitis. Overall, she does feel like Trelegy is working well for her and would like to continue this medication. Will add a Medrol Dosepak for worsening allergy symptoms. HISTORY PAST MEDICAL HISTORY Diagnosis Date Amenorrhea Asthma Seasonal allergies Smoker PAST SURGICAL HISTORY Procedure Laterality Date DANDC, DIAG AND/OR THERAPEUTIC FOOT SURGERY HX Right Plantar fascia LIGATE FALLOPIAN TUBE PAST SURGICAL HISTORY OF Thumb Surgery TONSILLECTOMY AND ADENOIDECTOMY HX Social History Tobacco Use Smoking status: Former Current packs/day: 0.00 Average packs/day: 1 pack/day for 10.0 years (10.0 ttl pk-yrs) Types: Cigarettes Start date: 11/30/2009 Quit date: 11/30/2019 Years since quittin.2 Smokeless tobacco: Never Vaping Use Vaping status: Never Used Substance Use Topics Alcohol use: Yes Drug use: Never ALLERGIES: ALLERGIES No Known Allergies MEDICATIONS: Current Outpatient Medications Medication Sig montelukast (SINGULAIR) 10 mg tablet take 1 tablet by mouth at bedtime Albuterol Sulfate 0.63 mg/3 mL nebulizer solution INHALE 1 (ONE) vial via NEBULIZER EVERY 6 HOURS NEEDED FOR WHEEZING or SHORTNESS OF BREATH cetirizine (ZYRTEC) 10 mg tablet take 1 tablet by mouth once daily fluticasone (FLONASE) 50 mcg/actuation nasal spray spray 1 to 2 sprays IN EACH NOSTRIL ONCE DAILY albuterol HFA (PROVENTIL HFA, VENTOLIN HFA) 90 mcg/actuation inhaler Inhale 2 Puffs as instructed every 6 hours as needed for wheezing/shortness of breath. gvvtdrhfped-duphwcgqu-cnknvdbx (TRELEGY ELLIPTA) 200-62.5-25 mcg inhalation powder Inhale 1 Puff as instructed once daily. methylPREDNISolone (MEDROL, DESI,) 4 mg Dose-Pack Use orally as directed. No current facility-administered medications for this visit. IMMUNIZATIONS: Immunization History Administered Date(s) Administered diphtheria tetanus pertussis (DTP) vaccine 1985 1985 02/14/1986 diphtheria tetanus pertussis (DTaP) vaccine, pediatric (INFANRIX) 1985 1985 02/14/1986 diphtheria tetanus pertussis (DTaP) vaccine, unspecified formulation 04/25/1987 07/24/1990 measles mumps rubella (MMR) vaccine (M-M-R II, PRIORIX) 01/03/1987 09/17/1997 poliovirus (OPV) vaccine, trivalent, live, oral (ORIMUNE) 1985 1985 02/14/1986 04/25/1987 tetanus diphtheria pertussis (Tdap) vaccine, age 7+ yr (ADACEL, BOOSTRIX) 04/25/1987 07/24/1990 REVIEW OF SYSTEMS Review of Systems Constitutional: Negative for chills, diaphoresis, fatigue, fever and unexpected weight change. HENT: Positive for congestion and rhinorrhea. Negative for dental problem, ear pain, postnasal drip, sinus pressure, sinus pain, sore throat and trouble swallowing. Eyes: Negative for photophobia, pain, discharge, itching and visual disturbance. Respiratory: Positive for chest tightness, shortness of breath and wheezing. Negative for apnea, cough and stridor. Cardiovascular: Negative for chest pain, palpitations and leg swelling. Gastrointestinal: Negative for abdominal distention, abdominal pain, blood in stool, constipation, diarrhea, nausea and vomiting. Endocrine: Negative for polydipsia, polyphagia and polyuria. Genitourinary: Negative for difficulty urinating, dysuria, flank pain and hematuria. Musculoskeletal: Negative for arthralgias, gait problem, joint swelling and myalgias. Skin: Negative for color change, pallor, rash and wound. Allergic/Immunologic: Negative for environmental allergies and food allergies. Neurological: Negative for dizziness, syncope, weakness, light-headedness, numbness and headaches. Hematological: Negative for adenopathy. Does not bruise/bleed easily. Psychiatric/Behavioral: Negative for agitation, behavioral problems, confusion and suicidal ideas. Vital Signs: BP 123/82 Pulse 68 Ht 5' 2.008 (1.58m) Wt 270 lb (122.5kg) SpO2 98% BMI 49.37 kg/(m2). Physical Exam Constitutional: General: She is not in acute distress. Appearance: She is (more content not included)... [facility] 02-24-2025 History of Present illness Narrative [facility] Department of Pulmonary & Sleep Medicine Lesli Hamm APRN.[facility] Pulmonary Progress Note REFERRING PROVIDER: No ref. provider found Raine Solomon is a 39 year old female who is returning for follow up evaluation of asthma and shortness of breath. History of Illness Since Last Visit: As any recent hospitalizations or ED visits with respiratory complaints. She continues with Trelegy, does admit to missing days here and there. Encouraged to take consistently. She does feel she has had worsening dyspnea, chest tightness/wheezing over the last month. She is using her albuterol more for symptom relief. She denies any complaints of cough, fever, or chills. She does complain of worsening allergy symptoms with clear rhinitis. Overall, she does feel like Trelegy is working well for her and would like to continue this medication. Will add a Medrol Dosepak for worsening allergy symptoms. HISTORY PAST MEDICAL HISTORY Diagnosis Date Amenorrhea Asthma Seasonal allergies Smoker PAST SURGICAL HISTORY Procedure Laterality Date D&C, DIAG AND/OR THERAPEUTIC FOOT SURGERY HX Right Plantar fascia LIGATE FALLOPIAN TUBE PAST SURGICAL HISTORY OF Thumb Surgery TONSILLECTOMY AND ADENOIDECTOMY HX Social History Tobacco Use Smoking status: Former Current packs/day: 0.00 Average packs/day: 1 pack/day for 10.0 years (10.0 ttl pk-yrs) Types: Cigarettes Start date: 11/30/2009 Quit date: 11/30/2019 Years since quittin.2 Smokeless tobacco: Never Vaping Use Vaping status: Never Used Substance Use Topics Alcohol use: Yes Drug use: Never ALLERGIES: ALLERGIES No Known Allergies MEDICATIONS: Current Outpatient Medications Medication Sig montelukast (SINGULAIR) 10 mg tablet take 1 tablet by mouth at bedtime Albuterol Sulfate 0.63 mg/3 mL nebulizer solution INHALE 1 (ONE) vial via NEBULIZER EVERY 6 HOURS NEEDED FOR WHEEZING or SHORTNESS OF BREATH cetirizine (ZYRTEC) 10 mg tablet take 1 tablet by mouth once daily fluticasone (FLONASE) 50 mcg/actuation nasal spray spray 1 to 2 sprays IN EACH NOSTRIL ONCE DAILY albuterol HFA (PROVENTIL HFA, VENTOLIN HFA) 90 mcg/actuation inhaler Inhale 2 Puffs as instructed every 6 hours as needed for wheezing/shortness of breath. csmboueicwx-fpsxoouvq-vimlagxf (TRELEGY ELLIPTA) 200-62.5-25 mcg inhalation powder Inhale 1 Puff as instructed once daily. methylPREDNISolone (MEDROL, DESI,) 4 mg Dose-Pack Use orally as directed. No current facility-administered medications for this visit. IMMUNIZATIONS: Immunization History Administered Date(s) Administered diphtheria tetanus pertussis (DTP) vaccine 1985 1985 02/14/1986 diphtheria tetanus pertussis (DTaP) vaccine, pediatric (INFANRIX) 1985 1985 02/14/1986 diphtheria tetanus pertussis (DTaP) vaccine, unspecified formulation 04/25/1987 07/24/1990 measles mumps rubella (MMR) vaccine (M-M-R II, PRIORIX) 01/03/1987 09/17/1997 poliovirus (OPV) vaccine, trivalent, live, oral (ORIMUNE) 1985 1985 02/14/1986 04/25/1987 tetanus diphtheria pertussis (Tdap) vaccine, age 7+ yr (ADACEL, BOOSTRIX) 04/25/1987 07/24/1990 REVIEW OF SYSTEMS Review of Systems Constitutional: Negative for chills, diaphoresis, fatigue, fever and unexpected weight change. HENT: Positive for congestion and rhinorrhea. Negative for dental problem, ear pain, postnasal drip, sinus pressure, sinus pain, sore throat and trouble swallowing. Eyes: Negative for photophobia, pain, discharge, itching and visual disturbance. Respiratory: Positive for chest tightness, shortness of breath and wheezing. Negative for apnea, cough and stridor. Cardiovascular: Negative for chest pain, palpitations and leg swelling. Gastrointestinal: Negative for abdominal distention, abdominal pain, blood in stool, constipation, diarrhea, nausea and vomiting. Endocrine: Negative for polydipsia, polyphagia and polyuria. Genitourinary: Negative for difficulty urinating, dysuria, flank pain and hematuria. Musculoskeletal: Negative for arthralgias, gait problem, joint swelling and myalgias. Skin: Negative for color change, pallor, rash and wound. Allergic/Immunologic: Negative for environmental allergies and food allergies. Neurological: Negative for dizziness, syncope, weakness, light-headedness, numbness and headaches. Hematological: Negative for adenopathy. Does not bruise/bleed easily. Psychiatric/Behavioral: Negative for agitation, behavioral problems, confusion and suicidal ideas. Vital Signs: BP 123/82 Pulse 68 Ht 5' 2.008 (1.58m) Wt 270 lb (122.5kg) SpO2 98% BMI 49.37 kg/(m^2). Physical Exam Constitutional: General: She is not in acute distress. Appearance: She is morbidly obese. HENT: Head: Normocephalic and atraumatic. Comments: Mallampati IV Nose: Nose normal. No septal deviation, mucosal edema or rhinorrhea. Mouth/Throat: Mouth: No oral lesions. Dentition: Normal dentition. Does not have dentures. Pharynx: Uvula midline. No oropharyngeal exudate or posterior oropharyngeal erythema. Tonsils: No tonsillar abscesses. Eyes: Conjunctiva/sclera: Conjunctivae normal. Pupils: Pupils are equal, round, and reactive to light. Neck: Thyroid: No thyromegaly. Vascular: No JVD. Trachea: No tracheal deviation. Cardiovascular: Rate and Rhythm: Normal rate and regular rhythm. Heart sounds: Normal heart sounds. Pulmonary: Effort: Pulmonary effort is normal. No respiratory distress. Breath sounds: Normal breath sounds. No stridor. No wheezing or rales. Abdominal: General: Bowel sounds are normal. There is no distension. Palpations: Abdomen is soft. Tenderness: There is no abdominal tenderness. There is no guarding. Musculoskeletal: General: Normal range of motion. Cervical back: Normal range of motion and neck supple. Skin: General: Skin is warm and dry. Findings: No erythema or rash. Neurological: Mental Status: She is alert and oriented to person, place, and time. Gait: Gait is intact. Psychiatric: Mood and Affect: Mood and affect normal. Cognition and Memory: Memory normal. Judgment: Judgment normal. DATA REVIEW Oximetry : 98% saturated at rest on room air. ASSESSMENT/PLAN: 1. Allergic rhinitis, unspecified seasonality, unspecified trigger - ICD9: 477.9, ICD10: J30.9 (primary diagnosis) Worsening allergy symptoms over the last month. 2. Moderate persistent asthma without complication - ICD9: 493.90, ICD10: J45.40 - Moderate persistent asthma worse - Continue current medications - ALBUTEROL SULFATE HFA 90 MCG/ACTUATION AEROSOL INHALER - TRELEGY ELLIPTA 200 MCG-62.5 MCG-25 MCG POWDER FOR INHALATION - METHYLPREDNISOLONE 4 MG TABLETS IN A DOSE PACK 3. Obesity, Class III, BMI >= 40 - ICD9: 278.01, ICD10: E66.01 4. Former tobacco use - ICD9: V15.82, ICD10: Z87.891 Lesli Hamm (Electronically signed expedite mailing) FOLLOW UP: Return in about 1 year (around 02/24/2026). This note was generated with voice recognition software and may contain errors including spelling, grammar, and syntax and mis-recognition of what was dictated that are not fully corrected. documented in this encounter [facility] 02-24-2025 Instructions Lesli Hamm APRN.CNP - 02/24/2025 10:31 AM EDT Continue with the current medications. I sent a medrol dose pack -- if you aren't feeling better after this call. I can look at making changes to your inhaler. Call if there is any changes and you need to be seen earlier. documented in this encounter [facility] 06-15-2024 Telephone encounter Note Prior authorization approved Payer: [facility] PA request for [id number] was approved for 365 days. The PA# assigned is [id number]. Approval Details Authorization number: [id number] Authorized from June 15, 2024 to June 14, 2025 Electronic appeal: Not supported [facility] 06-15-2024 Miscellaneous Notes Prior authorization approved Payer: [facility] Your PA request for [id number] was approved for 365 days. The PA# assigned is [id number]. Approval Details Authorization number: [id number] Authorized from June 15, 2024 to June 14, 2025 Electronic appeal: Not supported PA for Trelegy sent via Epic documented in this encounter [facility] 06-15-2024 Telephone encounter Note PA for Trelegy sent via Epic [facility] 06-15-2024 History of Present illness Narrative [facility] Department of Pulmonary & Sleep Medicine Lesli Hamm APRN.REPORTS ANALYSIS MANAGER Pulmonary Progress Note REFERRING PROVIDER: Karri Solomon is a 38 year old female who is returning for follow up evaluation of asthma, cough, and shortness of breath. History of Illness Since Last Visit: Patient denies any recent hospitalizations or illnesses. Over the last month she is reporting increased use of her rescue inhaler. She is using her albuterol least once per day. She complains of worsening dyspnea, chest tightness/wheezing, and a slight cough. She denies any complaints of fever, chills, or hemoptysis. She is currently using Breo and had been controlled with this until recently. Discussed trial of Trelegy daily in place. HISTORY PAST MEDICAL HISTORY Diagnosis Date Amenorrhea Asthma Seasonal allergies Smoker PAST SURGICAL HISTORY Procedure Laterality Date D&C, DIAG AND/OR THERAPEUTIC FOOT SURGERY HX Right Plantar fascia LIGATE FALLOPIAN TUBE PAST SURGICAL HISTORY OF Thumb Surgery TONSILLECTOMY AND ADENOIDECTOMY HX Social History Tobacco Use Smoking status: Former Packs/day: 1.00 Years: 10.00 Additional pack years: 0.00 Total pack years: 10.00 Types: Cigarettes Quit date: 11/30/2019 Years since quittin.5 Smokeless tobacco: Never Vaping Use Vaping Use: Never used Substance Use Topics Alcohol use: Yes Drug use: Never ALLERGIES: ALLERGIES No Known Allergies MEDICATIONS: Current Outpatient Medications Medication Sig montelukast (SINGULAIR) 10 mg tablet take 1 tablet by mouth at bedtime Albuterol Sulfate 0.63 mg/3 mL nebulizer solution INHALE 1 (ONE) vial via NEBULIZER EVERY 6 HOURS NEEDED FOR WHEEZING or SHORTNESS OF BREATH cetirizine (ZYRTEC) 10 mg tablet take 1 tablet by mouth once daily fluticasone (FLONASE) 50 mcg/actuation nasal spray spray 1 to 2 sprays IN EACH NOSTRIL ONCE DAILY albuterol HFA (PROVENTIL HFA, VENTOLIN HFA) 90 mcg/actuation inhaler Inhale 2 Puffs as instructed every 6 hours as needed for wheezing/shortness of breath. azithromycin (ZITHROMAX) 250 mg tablet Take 2 tabs on the first day, then one tab daily for 4 days. yyotwptyvjq-wsviajmpb-mcxurehk (TRELEGY ELLIPTA) 200-62.5-25 mcg inhalation powder Inhale 1 Puff as instructed once daily. No current facility-administered medications for this visit. IMMUNIZATIONS: Immunization History Administered Date(s) Administered diphtheria tetanus pertussis (DTP) vaccine 1985 1985 02/14/1986 diphtheria tetanus pertussis (DTaP) vaccine, pediatric (INFANRIX) 1985 1985 02/14/1986 diphtheria tetanus pertussis (DTaP) vaccine, unspecified formulation 04/25/1987 07/24/1990 measles mumps rubella (MMR) vaccine (M-M-R II, PRIORIX) 01/03/1987 09/17/1997 poliovirus (OPV) vaccine, trivalent, live, oral (ORIMUNE) 1985 1985 02/14/1986 04/25/1987 tetanus diphtheria pertussis (Tdap) vaccine, age 7+ yr (ADACEL, BOOSTRIX) 04/25/1987 07/24/1990 REVIEW OF SYSTEMS Review of Systems Constitutional: Negative for chills, diaphoresis, fatigue, fever and unexpected weight change. HENT: Negative for congestion, dental problem, ear pain, postnasal drip, rhinorrhea, sinus pressure, sinus pain, sore throat and trouble swallowing. Eyes: Negative for photophobia, pain, discharge, itching and visual disturbance. Respiratory: Positive for cough, chest tightness, shortness of breath and wheezing. Negative for apnea and stridor. Cardiovascular: Negative for chest pain, palpitations and leg swelling. Gastrointestinal: Negative for abdominal distention, abdominal pain, blood in stool, constipation, diarrhea, nausea and vomiting. Endocrine: Negative for polydipsia, polyphagia and polyuria. Genitourinary: Negative for difficulty urinating, dysuria, flank pain and hematuria. Musculoskeletal: Negative for arthralgias, gait problem, joint swelling and myalgias. Skin: Negative for color change, pallor, rash and wound. Allergic/Immunologic: Negative for environmental allergies and food allergies. Neurological: Negative for dizziness, syncope, weakness, light-headedness, numbness and headaches. Hematological: Negative for adenopathy. Does not bruise/bleed easily. Psychiatric/Behavioral: Negative for agitation, behavioral problems, confusion and suicidal ideas. Vital Signs: BP 131/82 Pulse 80 Ht 5' 2.008 (1.58m) Wt 272 lb 6.4 oz (123.6kg) SpO2 96% BMI 49.81 kg/(m^2). Physical Exam Constitutional: General: She is not in acute distress. Appearance: She is morbidly obese. HENT: Head: Normocephalic and atraumatic. Comments: Mallampati IV Nose: Nose normal. No septal deviation, mucosal edema or rhinorrhea. Mouth/Throat: Mouth: No oral lesions. Dentition: Normal dentition. Does not have dentures. Pharynx: Uvula midline. No oropharyngeal exudate or posterior oropharyngeal erythema. Tonsils: No tonsillar abscesses. Eyes: Conjunctiva/sclera: Conjunctivae normal. Pupils: Pupils are equal, round, and reactive to light. Neck: Thyroid: No thyromegaly. Vascular: No JVD. Trachea: No tracheal deviation. Cardiovascular: Rate and Rhythm: Normal rate and regular rhythm. Heart sounds: Normal heart sounds. Pulmonary: Effort: Pulmonary effort is normal. No respiratory distress. Breath sounds: Normal breath sounds. No stridor. No wheezing or rales. Abdominal: General: Bowel sounds are normal. There is no distension. Palpations: Abdomen is soft. Tenderness: There is no abdominal tenderness. There is no guarding. Musculoskeletal: General: Normal range of motion. Cervical back: Normal range of motion and neck supple. Skin: General: Skin is warm and dry. Findings: No erythema or rash. Neurological: Mental Status: She is alert and oriented to person, place, and time. Gait: Gait is intact. Psychiatric: Mood and Affect: Mood and affect normal. Cognition and Memory: Memory normal. Judgment: Judgment normal. DATA REVIEW Oximetry : 96% saturated at rest on room air. ASSESSMENT/PLAN: 1. Moderate persistent asthma without complication - ICD9: 493.90, ICD10: J45.40 (primary diagnosis) - Moderate persistent asthma worse Inhaled medications adjusted. - TRELEGY ELLIPTA 200 MCG-62.5 MCG-25 MCG POWDER FOR INHALATION - TRIAMCINOLONE ACETONIDE 40 MG/ML SUSPENSION FOR INJECTION 2. Allergic rhinitis, unspecified seasonality, unspecified trigger - ICD9: 477.9, ICD10: J30.9 - TRIAMCINOLONE ACETONIDE 40 MG/ML SUSPENSION FOR INJECTION 3. Obesity, Class III, BMI >= 40 - ICD9: 278.01, ICD10: E66.01 Lesli Hamm (Electronically signed expedite mailing) FOLLOW UP: Return in about 6 weeks (around 07/27/2024). This note was generated with voice recognition software and may contain errors including spelling, grammar, and syntax and mis-recognition of what was dictated that are not fully corrected. documented in this encounter [facility] 06-15-2024 Nurse Note Patient tolerated procedure well. [facility] 06-15-2024 Nurse Note Patient tolerated procedure well. documented in this encounter [facility] 06-15-2024 Instructions Lesli Hamm APRN.REPORTS ANALYSIS MANAGER - 06/15/2024 2:45 PM EDT Start Trelegy 1 puff daily. This will replace the Breo inhaler. If you are feeling better and symptoms return to normal - call. We can push the follow up out to 6months. If there are any changes and you need to be seen earlier, get a message to me. Call if there is any change and you need to be seen earlier. documented in this encounter [facility] 05-05-2024 Telephone encounter Note Pharmacy faxes requesting refill: Requested Prescriptions Pending Prescriptions Disp Refills fluticasone (FLONASE) 50 mcg/actuation nasal spray [Pharmacy Med Name: fluticasone propionate 50 mcg/actuation nasal spray,suspension] 16 g 11 Sig: spray 1 to 2 sprays IN EACH NOSTRIL ONCE DAILY Date of last visit:12/16/23 Phone #: [phone] (home) [phone] (work) [phone] (cell) The patients preferred pharmacy has been captured for this encounter? yes [facility] 05-05-2024 Miscellaneous Notes Pharmacy faxes requesting refill: Requested Prescriptions Pending Prescriptions Disp Refills fluticasone (FLONASE) 50 mcg/actuation nasal spray [Pharmacy Med Name: fluticasone propionate 50 mcg/actuation nasal spray,suspension] 16 g 11 Sig: spray 1 to 2 sprays IN EACH NOSTRIL ONCE DAILY Date of last visit:12/16/23 Phone #: [phone] (home) [phone] (work) [phone] (cell) The patients preferred pharmacy has been captured for this encounter? yes documented in this encounter [facility] 05-05-2024 Telephone encounter Note Pharmacy faxes requesting refill: Requested Prescriptions Pending Prescriptions Disp Refills montelukast (SINGULAIR) 10 mg tablet [Pharmacy Med Name: montelukast 10 mg tablet] 30 tablet 11 Sig: take 1 tablet by mouth at bedtime Albuterol Sulfate 0.63 mg/3 mL nebulizer solution [Pharmacy Med Name: albuterol sulfate 0.63 mg/3 mL solution for nebulization] 300 mL 11 Sig: INHALE 1 (ONE) vial via NEBULIZER EVERY 6 HOURS NEEDED FOR WHEEZING or SHORTNESS OF BREATH cetirizine (ZYRTEC) 10 mg tablet [Pharmacy Med Name: cetirizine 10 mg tablet] 30 tablet 11 Sig: take 1 tablet by mouth once daily fluticasone-vilanterol (BREO ELLIPTA) 200-25 mcg/dose inhaler [Pharmacy Med Name: fluticasone furoate 200 mcg-vilanterol 25 mcg/dose inhalation powder] 11 Sig: inhale 1 puff by mouth once daily Date of last visit:12/16/23 Phone #: [phone] (home) [phone] (work) [phone] (cell) The patients preferred pharmacy has been captured for this encounter? yes [facility] 05-05-2024 Miscellaneous Notes Pharmacy faxes requesting refill: Requested Prescriptions Pending Prescriptions Disp Refills montelukast (SINGULAIR) 10 mg tablet [Pharmacy Med Name: montelukast 10 mg tablet] 30 tablet 11 Sig: take 1 tablet by mouth at bedtime Albuterol Sulfate 0.63 mg/3 mL nebulizer solution [Pharmacy Med Name: albuterol sulfate 0.63 mg/3 mL solution for nebulization] 300 mL 11 Sig: INHALE 1 (ONE) vial via NEBULIZER EVERY 6 HOURS NEEDED FOR WHEEZING or SHORTNESS OF BREATH cetirizine (ZYRTEC) 10 mg tablet [Pharmacy Med Name: cetirizine 10 mg tablet] 30 tablet 11 Sig: take 1 tablet by mouth once daily fluticasone-vilanterol (BREO ELLIPTA) 200-25 mcg/dose inhaler [Pharmacy Med Name: fluticasone furoate 200 mcg-vilanterol 25 mcg/dose inhalation powder] 11 Sig: inhale 1 puff by mouth once daily Date of last visit:12/16/23 Phone #: [phone] (home) [phone] (work) [phone] (cell) The patients preferred pharmacy has been captured for this encounter? yes documented in this encounter [facility] 04-02-2024 Telephone encounter Note Pharmacy faxes requesting refill: Requested Prescriptions Pending Prescriptions Disp Refills albuterol HFA (PROVENTIL HFA, VENTOLIN HFA) 90 mcg/actuation inhaler [Pharmacy Med Name: albuterol sulfate HFA 90 mcg/actuation aerosol inhaler] 18 g 11 Sig: Inhale 2 Puffs as instructed every 6 hours as needed for wheezing/shortness of breath. Date of last visit:12/16/23 Phone #: [phone] (home) [phone] (work) [phone] (cell) The patients preferred pharmacy has been captured for this encounter? yes [facility] 04-02-2024 Miscellaneous Notes Pharmacy faxes requesting refill: Requested Prescriptions Pending Prescriptions Disp Refills albuterol HFA (PROVENTIL HFA, VENTOLIN HFA) 90 mcg/actuation inhaler [Pharmacy Med Name: albuterol sulfate HFA 90 mcg/actuation aerosol inhaler] 18 g 11 Sig: Inhale 2 Puffs as instructed every 6 hours as needed for wheezing/shortness of breath. Date of last visit:12/16/23 Phone #: [phone] (home) [phone] (work) [phone] (cell) The patients preferred pharmacy has been captured for this encounter? yes documented in this encounter [facility] 05-05-2023 Note HNO ID: [id number] Author: Lesli Hamm APRN.OLIVIER Service: ? Author Type: Nurse Practitioner Type: Progress Notes Filed: 05/05/2023 12:13 PM Note Text: [facility] Department of Pulmonary AND Sleep Medicine Lesli Hamm APRN.REPORTS ANALYSIS MANAGER Pulmonary Progress Note REFERRING PROVIDER: No ref. provider found Raine Solomon is a 37 year old female who is returning for follow up evaluation of asthma. History of Illness Since Last Visit: Patient denies any recent hospitalizations or illnesses. With weather changes her allergy symptoms have been flaring up. She has increased nasal drainage and congestion. She complains of postnasal drainage and a mild cough symptoms. She denies any complaints of chest tightness or wheezing. She denies any complaints of fever, chills, or hemoptysis. She does have chronic exertional dyspnea, stable and at baseline. HISTORY PAST MEDICAL HISTORY Diagnosis Date Amenorrhea Asthma Seasonal allergies Smoker PAST SURGICAL HISTORY Procedure Laterality Date DANDC, DIAG AND/OR THERAPEUTIC FOOT SURGERY HX Right Plantar fascia LIGATE FALLOPIAN TUBE PAST SURGICAL HISTORY OF Thumb Surgery TONSILLECTOMY AND ADENOIDECTOMY HX Social History Tobacco Use Smoking status: Former Packs/day: 1.00 Years: 10.00 Pack years: 10.00 Types: Cigarettes Quit date: 11/30/2019 Years since quittin.4 Smokeless tobacco: Never Vaping Use Vaping Use: Never used Substance Use Topics Alcohol use: Yes Drug use: Never ALLERGIES: ALLERGIES No Known Allergies MEDICATIONS: Current Outpatient Medications Medication Sig albuterol HFA (VENTOLIN HFA) 90 mcg/actuation inhaler Inhale 2 Puffs as instructed every 6 hours as needed for wheezing/shortness of breath. montelukast (SINGULAIR) 10 mg tablet Take 1 tablet by mouth daily at bedtime. cetirizine (ZYRTEC) 10 mg tablet Take 1 tablet by mouth once daily. Albuterol Sulfate 0.63 mg/3 mL nebulizer solution Use 1 Ampule via nebulizer every 6 hours as needed for wheezing/shortness of breath. fluticasone-vilanterol (BREO ELLIPTA) 200-25 mcg/dose inhaler Inhale 1 Inhalation as instructed once daily. fluticasone (FLONASE) 50 mcg/actuation nasal spray Use 1-2 Sprays in each nostril once daily. Current Facility-Administered Medications Medication Dose Route Frequency triamcinolone acetonide 80 mg injection (KeNALog 40) 80 mg INTRAMUSCULAR ONCE (AMB - Up to 30 Days) IMMUNIZATIONS: Immunization History Administered Date(s) Administered diphtheria tetanus pertussis (DTP) vaccine 1985 1985 02/14/1986 diphtheria tetanus pertussis (DTaP) vaccine, unspecified formulation 04/25/1987 07/24/1990 measles mumps rubella (MMR) vaccine (M-M-R II, PRIORIX) 01/03/1987 09/17/1997 poliovirus (OPV) vaccine, trivalent, live, oral (ORIMUNE) 1985 1985 02/14/1986 04/25/1987 REVIEW OF SYSTEMS Review of Systems Constitutional: Negative for chills, diaphoresis, fatigue, fever and unexpected weight change. HENT: Positive for congestion, postnasal drip, rhinorrhea and sinus pressure. Negative for dental problem, ear pain, sinus pain, sore throat and trouble swallowing. Eyes: Negative for photophobia, pain, discharge, itching and visual disturbance. Respiratory: Positive for cough and shortness of breath. Negative for apnea, chest tightness, wheezing and stridor. Cardiovascular: Negative for chest pain, palpitations and leg swelling. Gastrointestinal: Negative for abdominal distention, abdominal pain, blood in stool, constipation, diarrhea, nausea and vomiting. Endocrine: Negative for polydipsia, polyphagia and polyuria. Genitourinary: Negative for difficulty urinating, dysuria, flank pain and hematuria. Musculoskeletal: Negative for arthralgias, gait problem, joint swelling and myalgias. Skin: Negative for color change, pallor, rash and wound. Allergic/Immunologic: Negative for environmental allergies and food allergies. Neurological: Negative for dizziness, syncope, weakness, light-headedness, numbness and headaches. Hematological: Negative for adenopathy. Does not bruise/bleed easily. Psychiatric/Behavioral: Negative for agitation, behavioral problems, confusion and suicidal ideas. Vital Signs: BP 122/80 Pulse 76 Ht 5' 2 (1.58m) Wt 255 lb (115.7kg) SpO2 97% BMI 46.63 kg/(m2). Physical Exam Constitutional: General: She is not in acute distress. Appearance: She is morbidly obese. HENT: Head: Normocephalic and atraumatic. Comments: Mallampati IV Nose: Nose normal. No septal deviation, mucosal edema or rhinorrhea. Mouth/Throat: Mouth: No oral lesions. Dentition: Normal dentition. Does not have dentures. Pharynx: Uvula midline. No oropharyngeal exudate or posterior oropharyngeal erythema. Tonsils: No tonsillar abscesses. Eyes: Conjunctiva/sclera: Conjunctivae normal. Pupils: Pupils are equal, round, and re (more content not included)... [facility] 05-05-2023 Nurse Note Patient tolerated procedure well. documented in this encounter [facility] 05-05-2023 History of Present illness Narrative [facility] Department of Pulmonary & Sleep Medicine Lesli Hamm APRN.REPORTS ANALYSIS MANAGER Pulmonary Progress Note REFERRING PROVIDER: No ref. provider found Raine Solomon is a 37 year old female who is returning for follow up evaluation of asthma. History of Illness Since Last Visit: Patient denies any recent hospitalizations or illnesses. With weather changes her allergy symptoms have been flaring up. She has increased nasal drainage and congestion. She complains of postnasal drainage and a mild cough symptoms. She denies any complaints of chest tightness or wheezing. She denies any complaints of fever, chills, or hemoptysis. She does have chronic exertional dyspnea, stable and at baseline. HISTORY PAST MEDICAL HISTORY Diagnosis Date Amenorrhea Asthma Seasonal allergies Smoker PAST SURGICAL HISTORY Procedure Laterality Date D&C, DIAG AND/OR THERAPEUTIC FOOT SURGERY HX Right Plantar fascia LIGATE FALLOPIAN TUBE PAST SURGICAL HISTORY OF Thumb Surgery TONSILLECTOMY AND ADENOIDECTOMY HX Social History Tobacco Use Smoking status: Former Packs/day: 1.00 Years: 10.00 Pack years: 10.00 Types: Cigarettes Quit date: 11/30/2019 Years since quittin.4 Smokeless tobacco: Never Vaping Use Vaping Use: Never used Substance Use Topics Alcohol use: Yes Drug use: Never ALLERGIES: ALLERGIES No Known Allergies MEDICATIONS: Current Outpatient Medications Medication Sig albuterol HFA (VENTOLIN HFA) 90 mcg/actuation inhaler Inhale 2 Puffs as instructed every 6 hours as needed for wheezing/shortness of breath. montelukast (SINGULAIR) 10 mg tablet Take 1 tablet by mouth daily at bedtime. cetirizine (ZYRTEC) 10 mg tablet Take 1 tablet by mouth once daily. Albuterol Sulfate 0.63 mg/3 mL nebulizer solution Use 1 Ampule via nebulizer every 6 hours as needed for wheezing/shortness of breath. fluticasone-vilanterol (BREO ELLIPTA) 200-25 mcg/dose inhaler Inhale 1 Inhalation as instructed once daily. fluticasone (FLONASE) 50 mcg/actuation nasal spray Use 1-2 Sprays in each nostril once daily. Current Facility-Administered Medications Medication Dose Route Frequency triamcinolone acetonide 80 mg injection (KeNALog 40) 80 mg INTRAMUSCULAR ONCE (AMB - Up to 30 Days) IMMUNIZATIONS: Immunization History Administered Date(s) Administered diphtheria tetanus pertussis (DTP) vaccine 1985 1985 02/14/1986 diphtheria tetanus pertussis (DTaP) vaccine, unspecified formulation 04/25/1987 07/24/1990 measles mumps rubella (MMR) vaccine (M-M-R II, PRIORIX) 01/03/1987 09/17/1997 poliovirus (OPV) vaccine, trivalent, live, oral (ORIMUNE) 1985 1985 02/14/1986 04/25/1987 REVIEW OF SYSTEMS Review of Systems Constitutional: Negative for chills, diaphoresis, fatigue, fever and unexpected weight change. HENT: Positive for congestion, postnasal drip, rhinorrhea and sinus pressure. Negative for dental problem, ear pain, sinus pain, sore throat and trouble swallowing. Eyes: Negative for photophobia, pain, discharge, itching and visual disturbance. Respiratory: Positive for cough and shortness of breath. Negative for apnea, chest tightness, wheezing and stridor. Cardiovascular: Negative for chest pain, palpitations and leg swelling. Gastrointestinal: Negative for abdominal distention, abdominal pain, blood in stool, constipation, diarrhea, nausea and vomiting. Endocrine: Negative for polydipsia, polyphagia and polyuria. Genitourinary: Negative for difficulty urinating, dysuria, flank pain and hematuria. Musculoskeletal: Negative for arthralgias, gait problem, joint swelling and myalgias. Skin: Negative for color change, pallor, rash and wound. Allergic/Immunologic: Negative for environmental allergies and food allergies. Neurological: Negative for dizziness, syncope, weakness, light-headedness, numbness and headaches. Hematological: Negative for adenopathy. Does not bruise/bleed easily. Psychiatric/Behavioral: Negative for agitation, behavioral problems, confusion and suicidal ideas. Vital Signs: BP 122/80 Pulse 76 Ht 5' 2 (1.58m) Wt 255 lb (115.7kg) SpO2 97% BMI 46.63 kg/(m^2). Physical Exam Constitutional: General: She is not in acute distress. Appearance: She is morbidly obese. HENT: Head: Normocephalic and atraumatic. Comments: Mallampati IV Nose: Nose normal. No septal deviation, mucosal edema or rhinorrhea. Mouth/Throat: Mouth: No oral lesions. Dentition: Normal dentition. Does not have dentures. Pharynx: Uvula midline. No oropharyngeal exudate or posterior oropharyngeal erythema. Tonsils: No tonsillar abscesses. Eyes: Conjunctiva/sclera: Conjunctivae normal. Pupils: Pupils are equal, round, and reactive to light. Neck: Thyroid: No thyromegaly. Vascular: No JVD. Trachea: No tracheal deviation. Cardiovascular: Rate and Rhythm: Normal rate and regular rhythm. Heart sounds: Normal heart sounds. Pulmonary: Effort: Pulmonary effort is normal. No respiratory distress. Breath sounds: Normal breath sounds. No stridor. No wheezing or rales. Abdominal: General: Bowel sounds are normal. There is no distension. Palpations: Abdomen is soft. Tenderness: There is no abdominal tenderness. There is no guarding. Musculoskeletal: General: Normal range of motion. Cervical back: Normal range of motion and neck supple. Skin: General: Skin is warm and dry. Findings: No erythema or rash. Neurological: Mental Status: She is alert and oriented to person, place, and time. Gait: Gait is intact. Psychiatric: Mood and Affect: Mood and affect normal. Cognition and Memory: Memory normal. Judgment: Judgment normal. DATA REVIEW Oximetry : 97% saturated at rest on room air. ASSESSMENT/PLAN: 1. Obesity, Class III, BMI >= 40 - ICD9: 278.01, ICD10: E66.01 (primary diagnosis) 2. Moderate persistent asthma without complication - ICD9: 493.90, ICD10: J45.40 - Moderate persistent asthma stable - Continue current medications - ALBUTEROL SULFATE HFA 90 MCG/ACTUATION AEROSOL INHALER - MONTELUKAST 10 MG TABLET - ALBUTEROL SULFATE 0.63 MG/3 ML SOLUTION FOR NEBULIZATION - FLUTICASONE FUROATE 200 MCG-VILANTEROL 25 MCG/DOSE INHALATION POWDER 3. Allergic rhinitis, unspecified seasonality, unspecified trigger - ICD9: 477.9, ICD10: J30.9 - CETIRIZINE 10 MG TABLET - TRIAMCINOLONE ACETONIDE 40 MG/ML SUSPENSION FOR INJECTION Lesli Hamm (Electronically signed expedite mailing) FOLLOW UP: Return in about 6 months (around 11/04/2023). This note was generated with voice recognition software and may contain errors including spelling, grammar, and syntax and mis-recognition of what was dictated that are not fully corrected. documented in this encounter [facility] 05-05-2023 Instructions Lesli Hamm APRN.CNP - 05/05/2023 12:04 PM EDT Continue with the current medications. I sent refills for all the medications. Call if there is a change and you need to be seen earlier documented in this encounter [facility] 10-30-2022 Note HNO ID: [id number] Author: Lesli Hamm APRN.CNP Service: ? Author Type: Nurse Practitioner Type: Progress Notes Filed: 10/30/2022 4:59 PM Note Text: [facility] Department of Pulmonary AND Sleep Medicine Lesli Hamm APRN.REPORTS ANALYSIS MANAGER Pulmonary Progress Note REFERRING PROVIDER: Efrem Cherry MD Raine Solomon is a 37 year old female who is returning for follow up evaluation of asthma and shortness of breath. History of Illness Since Last Visit: Patient denies any hospitalizations or illnesses since last office visit. She is doing better since starting Breo daily. She had been on Dulera prior to this, but was having difficulty with adherence to twice daily dosing. Since starting Breo, she is using her albuterol less. However since the weather changes, she has had slight increase in chest tightness and exertional dyspnea, especially when outdoors. She has had to use her albuterol little bit more with the weather changes. She denies any need for steroids or antibiotics at this point. She denies any complaints of fever, chills, or hemoptysis. HISTORY PAST MEDICAL HISTORY Diagnosis Date Amenorrhea Asthma Seasonal allergies Smoker PAST SURGICAL HISTORY Procedure Laterality Date DANDC, DIAG AND/OR THERAPEUTIC LIGATE FALLOPIAN TUBE PAST SURGICAL HISTORY OF Thumb Surgery TONSILLECTOMY AND ADENOIDECTOMY HX Social History Tobacco Use Smoking status: Former Packs/day: 1.00 Years: 10.00 Pack years: 10.00 Types: Cigarettes Quit date: 11/30/2019 Years since quittin.9 Smokeless tobacco: Never Vaping Use Vaping Use: Never used Substance Use Topics Alcohol use: Yes Drug use: Never ALLERGIES: ALLERGIES No Known Allergies MEDICATIONS: Current Outpatient Medications Medication Sig fluticasone-vilanterol (BREO ELLIPTA) 200-25 mcg/dose inhaler Inhale 1 Inhalation as instructed once daily. Rinse with water, gargle, and then expectorate after use. albuterol HFA (VENTOLIN HFA) 90 mcg/actuation inhaler Inhale 2 Puffs as instructed every 4 hours as needed. cetirizine (ZYRTEC) 10 mg tablet Take 1 tablet by mouth once daily. montelukast (SINGULAIR) 10 mg tablet Take 1 tablet by mouth daily at bedtime. Albuterol Sulfate 0.63 mg/3 mL nebulizer solution Use 1 Ampule via nebulizer every 4 hours as needed. predniSONE (DELTASONE) 10 mg tablet TAKE 4 TABS P.O. DAILY X 3 DAYS, THEN 3 TABS P.O. DAILY X 3 DAYS, THEN 2 TABS P.O. DAILY X 5 DAYS, THEN 1 TAB P.O. DAILY X 7 DAYS No current facility-administered medications for this visit. IMMUNIZATIONS: Immunization History Administered Date(s) Administered DTP 1985 1985 02/14/1986 DTaP, unspecified formulation 04/25/1987 07/24/1990 OPV 1985 1985 02/14/1986 04/25/1987 measles mumps rubella (MMR) vaccine (M-M-R II, PRIORIX) 01/03/1987 09/17/1997 REVIEW OF SYSTEMS Review of Systems Constitutional: Negative for chills, diaphoresis, fatigue, fever and unexpected weight change. HENT: Negative for congestion, dental problem, ear pain, postnasal drip, rhinorrhea, sinus pressure, sinus pain, sore throat and trouble swallowing. Eyes: Negative for photophobia, pain, discharge, itching and visual disturbance. Respiratory: Positive for chest tightness and shortness of breath. Negative for apnea, cough, wheezing and stridor. Cardiovascular: Negative for chest pain, palpitations and leg swelling. Gastrointestinal: Negative for abdominal distention, abdominal pain, blood in stool, constipation, diarrhea, nausea and vomiting. Endocrine: Negative for polydipsia, polyphagia and polyuria. Genitourinary: Negative for difficulty urinating, dysuria, flank pain and hematuria. Musculoskeletal: Negative for arthralgias, gait problem, joint swelling and myalgias. Skin: Negative for color change, pallor, rash and wound. Allergic/Immunologic: Negative for environmental allergies and food allergies. Neurological: Negative for dizziness, syncope, weakness, light-headedness, numbness and headaches. Hematological: Negative for adenopathy. Does not bruise/bleed easily. Psychiatric/Behavioral: Negative for agitation, behavioral problems, confusion and suicidal ideas. Vital Signs: BP 147/72 Pulse 73 Ht 5' 2 (1.58m) Wt 257 lb (116.6kg) SpO2 97% BMI 46.99 kg/(m2). Physical Exam Constitutional: General: She is not in acute distress. Appearance: She is obese. HENT: Head: Normocephalic and atraumatic. Comments: Mallampati II Nose: Nose normal. No septal deviation, mucosal edema or rhinorrhea. Mouth/Throat: Mouth: No oral lesions. Dentition: Normal dentition. Does not have dentures. Pharynx: Uvula midline. No oropharyngeal exudate or posterior oropharyngeal erythema. Tonsils: No tonsillar abscesses. Eyes: Conjunctiva/sclera: Conjunctivae normal. Pupils: Pupils are equal, round, and reactive to light. Neck: Thyroid: N (more content not included)... [facility] 10-30-2022 History of Present illness Narrative [facility] Department of Pulmonary & Sleep Medicine Lesli Hamm APRN.REPORTS ANALYSIS MANAGER Pulmonary Progress Note REFERRING PROVIDER: Efrem Cherry MD Raine Solomon is a 37 year old female who is returning for follow up evaluation of asthma and shortness of breath. History of Illness Since Last Visit: Patient denies any hospitalizations or illnesses since last office visit. She is doing better since starting Breo daily. She had been on Dulera prior to this, but was having difficulty with adherence to twice daily dosing. Since starting Breo, she is using her albuterol less. However since the weather changes, she has had slight increase in chest tightness and exertional dyspnea, especially when outdoors. She has had to use her albuterol little bit more with the weather changes. She denies any need for steroids or antibiotics at this point. She denies any complaints of fever, chills, or hemoptysis. HISTORY PAST MEDICAL HISTORY Diagnosis Date Amenorrhea Asthma Seasonal allergies Smoker PAST SURGICAL HISTORY Procedure Laterality Date D&C, DIAG AND/OR THERAPEUTIC LIGATE FALLOPIAN TUBE PAST SURGICAL HISTORY OF Thumb Surgery TONSILLECTOMY AND ADENOIDECTOMY HX Social History Tobacco Use Smoking status: Former Packs/day: 1.00 Years: 10.00 Pack years: 10.00 Types: Cigarettes Quit date: 11/30/2019 Years since quittin.9 Smokeless tobacco: Never Vaping Use Vaping Use: Never used Substance Use Topics Alcohol use: Yes Drug use: Never ALLERGIES: ALLERGIES No Known Allergies MEDICATIONS: Current Outpatient Medications Medication Sig fluticasone-vilanterol (BREO ELLIPTA) 200-25 mcg/dose inhaler Inhale 1 Inhalation as instructed once daily. Rinse with water, gargle, and then expectorate after use. albuterol HFA (VENTOLIN HFA) 90 mcg/actuation inhaler Inhale 2 Puffs as instructed every 4 hours as needed. cetirizine (ZYRTEC) 10 mg tablet Take 1 tablet by mouth once daily. montelukast (SINGULAIR) 10 mg tablet Take 1 tablet by mouth daily at bedtime. Albuterol Sulfate 0.63 mg/3 mL nebulizer solution Use 1 Ampule via nebulizer every 4 hours as needed. predniSONE (DELTASONE) 10 mg tablet TAKE 4 TABS P.O. DAILY X 3 DAYS, THEN 3 TABS P.O. DAILY X 3 DAYS, THEN 2 TABS P.O. DAILY X 5 DAYS, THEN 1 TAB P.O. DAILY X 7 DAYS No current facility-administered medications for this visit. IMMUNIZATIONS: Immunization History Administered Date(s) Administered DTP 1985 1985 02/14/1986 DTaP, unspecified formulation 04/25/1987 07/24/1990 OPV 1985 1985 02/14/1986 04/25/1987 measles mumps rubella (MMR) vaccine (M-M-R II, PRIORIX) 01/03/1987 09/17/1997 REVIEW OF SYSTEMS Review of Systems Constitutional: Negative for chills, diaphoresis, fatigue, fever and unexpected weight change. HENT: Negative for congestion, dental problem, ear pain, postnasal drip, rhinorrhea, sinus pressure, sinus pain, sore throat and trouble swallowing. Eyes: Negative for photophobia, pain, discharge, itching and visual disturbance. Respiratory: Positive for chest tightness and shortness of breath. Negative for apnea, cough, wheezing and stridor. Cardiovascular: Negative for chest pain, palpitations and leg swelling. Gastrointestinal: Negative for abdominal distention, abdominal pain, blood in stool, constipation, diarrhea, nausea and vomiting. Endocrine: Negative for polydipsia, polyphagia and polyuria. Genitourinary: Negative for difficulty urinating, dysuria, flank pain and hematuria. Musculoskeletal: Negative for arthralgias, gait problem, joint swelling and myalgias. Skin: Negative for color change, pallor, rash and wound. Allergic/Immunologic: Negative for environmental allergies and food allergies. Neurological: Negative for dizziness, syncope, weakness, light-headedness, numbness and headaches. Hematological: Negative for adenopathy. Does not bruise/bleed easily. Psychiatric/Behavioral: Negative for agitation, behavioral problems, confusion and suicidal ideas. Vital Signs: BP 147/72 Pulse 73 Ht 5' 2 (1.58m) Wt 257 lb (116.6kg) SpO2 97% BMI 46.99 kg/(m^2). Physical Exam Constitutional: General: She is not in acute distress. Appearance: She is obese. HENT: Head: Normocephalic and atraumatic. Comments: Mallampati II Nose: Nose normal. No septal deviation, mucosal edema or rhinorrhea. Mouth/Throat: Mouth: No oral lesions. Dentition: Normal dentition. Does not have dentures. Pharynx: Uvula midline. No oropharyngeal exudate or posterior oropharyngeal erythema. Tonsils: No tonsillar abscesses. Eyes: Conjunctiva/sclera: Conjunctivae normal. Pupils: Pupils are equal, round, and reactive to light. Neck: Thyroid: No thyromegaly. Vascular: No JVD. Trachea: No tracheal deviation. Cardiovascular: Rate and Rhythm: Normal rate and regular rhythm. Heart sounds: Normal heart sounds. Pulmonary: Effort: Pulmonary effort is normal. No respiratory distress. Breath sounds: Normal breath sounds. No stridor. No wheezing or rales. Abdominal: General: Bowel sounds are normal. There is no distension. Palpations: Abdomen is soft. Tenderness: There is no abdominal tenderness. There is no guarding. Musculoskeletal: General: Normal range of motion. Cervical back: Normal range of motion and neck supple. Skin: General: Skin is warm and dry. Findings: No erythema or rash. Neurological: Mental Status: She is alert and oriented to person, place, and time. Gait: Gait is intact. Psychiatric: Mood and Affect: Mood and affect normal. Cognition and Memory: Memory normal. Judgment: Judgment normal. DATA REVIEW Oximetry : 97% saturated at rest on room air. ASSESSMENT/PLAN: 1. Moderate persistent asthma without complication - ICD9: 493.90, ICD10: J45.40 (primary diagnosis) Moderate persistent Asthma improved - Continue current meds - PREDNISONE 10 MG TABLET - sent to have on hand if needed. 2. Allergic rhinitis, unspecified seasonality, unspecified trigger - ICD9: 477.9, ICD10: J30.9 3. Obesity, Class III, BMI >= 40 - ICD9: 278.01, ICD10: E66.01 Lesli Hamm (Electronically signed expedite mailing) FOLLOW UP: Return in about 6 months (around 04/29/2023). This note was generated with voice recognition software and may contain errors including spelling, grammar, and syntax and mis-recognition of what was dictated that are not fully corrected. documented in this encounter [facility] 10-30-2022 Instructions Lesli Hamm APRN.CNP - 10/30/2022 2:04 PM EST Continue with the current medications. I sent a prednisone taper to have on hand if needed. If you are having tightness, wheezing, worsening shortness of breath, or dry cough these are times to use the prednisone. Call if there is any changes and you need to be seen earlier. documented in this encounter [facility] 04-18-2022 Miscellaneous Notes Received fax from pharmacy needing ovi PA on Breo Ellipta 200-25 mcg through [employer] Edgar: [id number] documented in this encounter [facility] 02-26-2022 Miscellaneous Notes [facility] [address] PHYSICAL THERAPY REPORT [place] [facility] [place] [id number] F Status: DIS RCR PT Physical Therapy Initial Evaluation DATE OF VISIT: 02/25/2022 DATE OF ONSET: 6 months. PHYSICAL THERAPY DIAGNOSES: 1. Decreased strength in right ankle. 2. Increased pain in right heel. MEDICAL DIAGNOSES: 1. Plantar fasciitis. 2. Right heel spur. CHIEF COMPLAINT - FUNCTIONAL LIMITATIONS: The patient complains of increased pain in her right heel whenever she puts weight on it. HISTORY: The patient is a 36-year-old female, who had insidious onset of right heel pain over the past 6 months. She reports she had difficulty finding body art technician that would her accept her insurance. Therefore, it took a while for her to get treatment. She had a cortisone shot which she believes made things worse. She complains of numbness in her right heel occasionally. She also gets sharp shooting pain occasionally as well. She is getting inserts for her shoes but is waiting approval from her insurance. 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 Therefore, she has not had any other patient. She is on a pill 1 time a day to help out with inflammation. She states her heel hurts worse the more she is on it. She feels better when she props her foot up. PERSONAL FACTORS AND COMORBIDITIES: Asthma. EXAMINATION: VAS PAIN SCALE: 8/10 pain in the plantar aspect of her right heel. ACTIVE RANGE OF MOTION: Bilateral ankle dorsiflexion 8 degrees; plantar flexion 47 degrees; inversion 35 degrees; eversion 22 degrees. OBSERVATION: Unremarkable. PALPATION: The patient demonstrates increased tenderness to her right plantar heel. MANUAL MUSCLE TESTING: Bilateral ankle dorsiflexion and plantar flexion 4+/5 with pain with right ankle plantar flexion; bilateral knee extension and flexion 4+/5; right hip flexion and abduction 4+/5, left hip flexion and abduction 4-/5. Mobilization to lumbar spine to rule out dermatome sensation to her right heel: Mobilizations from L1-S1: Unremarkable. GAIT ANALYSIS: The patient demonstrates antalgic gait pattern on right lower extremity due to right heel pain. CLINICAL PRESENTATION: The patient displays a stable clinical presentation. CLINICAL DECISION MAKING: Low complexity based on above history, examination, and clinical presentation. PROBLEM LIST/FUNCTIONAL LIMITATIONS: 1. Increased right heel pain. 2. Decreased strength. SHORT-TERM GOALS: The patient will be independent with home exercise program within 1 to 2 weeks. LONG-TERM FUNCTIONAL GOALS/PATIENT-STATED GOALS: 1. The patient will improve right heel pain to less than or equal to 1/10. 2. The patient will be able to ambulate reciprocally to return to prior level of function. 3. The patient will report an overall improvement of 85% or greater. PROGNOSIS/REHABILITATION POTENTIAL: Good to achieve therapy goals. TREATMENT PLAN: The patient will be seen for manual therapy, therapeutic exercise, patient education, stretching as needed and as indicated. FREQUENCY/DURATION: 1 to 2 times per week for 10 visits. We will recommend additional visits as needed. DISCHARGE PLAN: The patient will be discharged from physical therapy upon completion all therapy goals, reaching plateau in physical therapy progress, and/or maximizing current physical therapy prescription. Thank you for referring your patient. If you have any further questions, please feel free to contact me at [facility]. Sincerely, Patrick Fuentes PT, DPT Report#: Dict ID [id number] / Int ID [id number] cc: PHYSICIAN MISC Dictated By: PATRICK FUENTES DPT <Electronically signed by PATRICK FUENTES DPT> 03/01/22 1459 PATRICK FUENTES DPT CC: << Signature on File>> Reported By: PATRICK FUENTES DPT Signed By: PATRICK FUENTES DPT Tests performed at: [address] [address] documented in this encounter [facility] Evaluation note Diagnosis Moderate persistent asthma without complication- Primary Unspecified asthma Allergic rhinitis, unspecified seasonality, unspecified trigger Obesity, Class III, BMI >= 40 Morbid obesity [facility] Diagnosis Obesity, Class III, BMI >= 40- Primary Morbid obesity Moderate persistent asthma without complication Unspecified asthma Allergic rhinitis, unspecified seasonality, unspecified trigger [facility] Moderate persistent asthma without complication Unspecified asthma [facility] Diagnosis Moderate persistent asthma without complication Unspecified asthma Allergic rhinitis, unspecified seasonality, unspecified trigger [facility] Diagnosis Moderate persistent asthma without complication- Primary Unspecified asthma Allergic rhinitis, unspecified seasonality, unspecified trigger Obesity, Class III, BMI >= 40 Morbid obesity [facility] Diagnosis Allergic rhinitis, unspecified seasonality, unspecified trigger- Primary Moderate persistent asthma without complication Unspecified asthma Obesity, Class III, BMI >= 40 Morbid obesity Former tobacco use Personal history of tobacco use, presenting hazards to health [facility] Diagnosis Moderate persistent asthma without complication (HCC) Unspecified asthma [facility] Diagnosis Moderate persistent asthma without complication (HCC) Unspecified asthma [facility] Diagnosis Moderate persistent asthma without complication (HCC) Unspecified asthma Allergic rhinitis, unspecified seasonality, unspecified trigger documented in this encounter [facility] Summary Purpose Family History No Family History Records Found Brother (s) Status:Active Comments:1. Emph ysema. Extrinsic Asthma. smoker Father Status:Active Comments:In [facility]. Extrinsic Asthma. Mother Status:Active Comments:In good health. Extrinsic Asthma. Sister (s) Status:Active Comments:2. [facility]. Extrinsic Asthma. Brother (s) Status:Active Comments:1. Emph ysema. Extrinsic Asthma. smoker Father Status:Active Comments:In [facility]. Extrinsic Asthma. Mother Status:Active Comments:In good health. Extrinsic Asthma. Sister (s) Status:Active Comments:2. In s table health. Extrinsic Asthma. Brother (s) Status:Active Comments:1. Emph ysema. Extrinsic Asthma. smoker Father Status:Active Comments:In [facility]. Extrinsic Asthma. Mother Status:Active Comments:In good health. Extrinsic Asthma. Sister (s) Status:Active Comments:2. In s table health. Extrinsic Asthma. Brother (s) Status:Active Comments:1. Emph ysema. Extrinsic Asthma. smoker Father Status:Active Comments:In [facility]. Extrinsic Asthma. Mother Status:Active Comments:In good health. Extrinsic Asthma. Sister (s) Status:Active Comments:2. In s table health. Extrinsic Asthma. Brother (s) Status:Active Comments:1. Emph ysema. Extrinsic Asthma. smoker Father Status:Active Comments:In [facility]. Extrinsic Asthma. Mother Status:Active Comments:In good health. Extrinsic Asthma. Sister (s) Status:Active Comments:2. In s table health. Extrinsic Asthma. Brother (s) Status:Active Comments:1. Emph ysema. Extrinsic Asthma. smoker Father Status:Active Comments:In [facility]. Extrinsic Asthma. Mother Status:Active Comments:In good health. Extrinsic Asthma. Sister (s) Status:Active Comments:2. In s table health. Extrinsic Asthma. Brother (s) Status:Active Comments:1. Emph ysema. Extrinsic Asthma. smoker Father Status:Active Comments:In [facility]. Extrinsic Asthma. Mother Status:Active Comments:In good health. Extrinsic Asthma. Sister (s) Status:Active Comments:2. In s table health. Extrinsic Asthma. Brother (s) Status:Active Comments:1. Emph ysema. Extrinsic Asthma. smoker Father Status:Active Comments:In [facility]. Extrinsic Asthma. Mother Status:Active Comments:In good health. Extrinsic Asthma. Sister (s) Status:Active Comments:2. In s table health. Extrinsic Asthma. Brother (s) Status:Active Comments:1. Emph ysema. Extrinsic Asthma. smoker Father Status:Active Comments:In [facility]. Extrinsic Asthma. Mother Status:Active Comments:In good health. Extrinsic Asthma. Sister (s) Status:Active Comments:2. In s table health. Extrinsic Asthma. Brother (s) Status:Active Comments:1. Emph ysema. Extrinsic Asthma. smoker Father Status:Active Comments:In [facility]. Extrinsic Asthma. Mother Status:Active Comments:In good health. Extrinsic Asthma. Sister (s) Status:Active Comments:2. In s table health. Extrinsic Asthma. Brother (s) Status:Active Comments:1. Emph ysema. Extrinsic Asthma. smoker Father Status:Active Comments:In [facility]. Extrinsic Asthma. Mother Status:Active Comments:In good health. Extrinsic Asthma. Sister (s) Status:Active Comments:2. In s table health. Extrinsic Asthma. Brother (s) Status:Active Comments:1. Emph ysema. Extrinsic Asthma. smoker Father Status:Active Comments:In [facility]. Extrinsic Asthma. Mother Status:Active Comments:In good health. Extrinsic Asthma. Sister (s) Status:Active Comments:2. In s table health. Extrinsic Asthma. Brother (s) Status:Active Comments:1. Emph ysema. Extrinsic Asthma. smoker Father Status:Active Comments:In [facility]. Extrinsic Asthma. Mother Status:Active Comments:In good health. Extrinsic Asthma. Sister (s) Status:Active Comments:2. In s table health. Extrinsic Asthma. Brother (s) Status:Active Comments:1. Emph ysema. Extrinsic Asthma. smoker Father Status:Active Comments:In [facility]. Extrinsic Asthma. Mother Status:Active Comments:In good health. Extrinsic Asthma. Sister (s) Status:Active Comments:2. In s table health. Extrinsic Asthma. Brother (s) Status:Active Comments:1. Emph ysema. Extrinsic Asthma. smoker Father Status:Active Comments:In [facility]. Extrinsic Asthma. Mother Status:Active Comments:In good health. Extrinsic Asthma. Sister (s) Status:Active Comments:2. In s table health. Extrinsic Asthma. Brother (s) Status:Active Comments:1. Emph ysema. Extrinsic Asthma. smoker Father Status:Active Comments:In [facility]. Extrinsic Asthma. Mother Status:Active Comments:In good health. Extrinsic Asthma. Sister (s) Status:Active Comments:2. In s table health. Extrinsic Asthma. Brother (s) Status:Active Comments:1. Emph ysema. Extrinsic Asthma. smoker Father Status:Active Comments:In [facility]. Extrinsic Asthma. Mother Status:Active Comments:In good health. Extrinsic Asthma. Sister (s) Status:Active Comments:2. In s table health. Extrinsic Asthma. Advance Directives No Advanced Directives Records FoundNo Advanced Directives Records FoundNo Advanced Directives Records FoundNo Advanced Directives Records FoundNo Advanced Directives Records FoundNo Advanced Directives Records FoundNo Advanced Directives Records FoundNo Advanced Directives Records Found Reason for Referral Specialty Diagnoses / Procedures Referred By Contac t Referred To Contact Diagnoses Moderate persistent asthma without complication Lesli Hamm, PSYCHOLOGICAL AIDE.[facility] [address] [place] [address] Referral ID Status Reason Start Date Expiration Date Visits Re quested Visits Authorized [id number] Closed 1 1 Referral ID Status Reason Start Date Expiration Date Visits Re quested Visits Authorized [id number] Closed 1 1 Referral ID Status Reason Start Date Expiration Date Visits Re quested Visits Authorized [id number] Closed 1 1 Referral ID Status Reason Start Date Expiration Date Visits Re quested Visits Authorized [id number] Closed 1 1 Referral ID Status Reason Start Date Expiration Date Visits Re quested Visits Authorized [id number] Closed 1 1 Referral ID Status Reason Start Date Expiration Date V isits Requested Visits Authorized [id number] Authorized 06/15/2024 06/14/2025 1 1 Medications Administered Section Inactive Administered Medications - up to 3 most recent administrations Medication Order MAR Action Action Date Dose Rate Site triamcinolone acetonide 80 mg injection (KeNALog 40) 80 mg, INTRAMUSCULAR, ONCE (UP TO 30 DAYS AMB), 1 dose, On 05/05/23 at 1230 Given 05/05/2023 12:16 PM EDT 80 mg Buttocks, Right Additional Source Comments INFORMATION SOURCE (unrecogn ized section and content) DATE CREATED AUTHOR 05/22/2018 [facility] ([place]) DATE CREATED AUTHOR AUTHOR'S ORGANIZ ATION 10/26/2020 [facility] DATE CREATED AUTHOR AUTHOR'S ORGANIZ ATION 10/31/2020 [facility] DATE CREATED AUTHOR AUTHOR'S ORGANIZ ATION 12/12/2022 [facility] DATE CREATED AUTHOR AUTHOR'S ORGANIZ ATION 05/10/2023 [facility] DATE CREATED AUTHOR AUTHOR'S ORGANIZ ATION 05/10/2023 [facility] DATE CREATED AUTHOR AUTHOR'S ORGANIZ ATION 08/20/2025 [facility] DATE CREATED AUTHOR AUTHOR'S ORGANIZ ATION 08/25/2025 [facility] Source Comments (unrecognize d section and content) In the event this informatio n is protected by the Federal Confidentiality of Alcohol and Drug Abuse Patient Records regulations: The Federal rules restrict any use of the information to criminally investigate or prosecute any alcohol or drug abuse patient.[facility] the event this information is protected by the Federal Confidentiality of Alcohol and Drug Abuse Patient Records regulations: The Federal rules restrict any use of the information to criminally investigate or prosecute any alcohol or drug abuse patient.[facility] the event this information is protected by the Federal Confidentiality of Alcohol and Drug Abuse Patient Records regulations: The Federal rules restrict any use of the information to criminally investigate or prosecute any alcohol or drug abuse patient.[facility] the event this information is protected by the Federal Confidentiality of Alcohol and Drug Abuse Patient Records regulations: The Federal rules restrict any use of the information to criminally investigate or prosecute any alcohol or drug abuse patient.[facility] the event this information is protected by the Federal Confidentiality of Alcohol and Drug Abuse Patient Records regulations: The Federal rules restrict any use of the information to criminally investigate or prosecute any alcohol or drug abuse patient.[facility] the event this information is protected by the Federal Confidentiality of Alcohol and Drug Abuse Patient Records regulations: The Federal rules restrict any use of the information to criminally investigate or prosecute any alcohol or drug abuse patient.[facility] the event this information is protected by the Federal Confidentiality of Alcohol and Drug Abuse Patient Records regulations: The Federal rules restrict any use of the information to criminally investigate or prosecute any alcohol or drug abuse patient.[facility] the event this information is protected by the Federal Confidentiality of Alcohol and Drug Abuse Patient Records regulations: The Federal rules restrict any use of the information to criminally investigate or prosecute any alcohol or drug abuse patient.[facility] the event this information is protected by the Federal Confidentiality of Alcohol and Drug Abuse Patient Records regulations: The Federal rules restrict any use of the information to criminally investigate or prosecute any alcohol or drug abuse patient.[facility] the event this information is protected by the Federal Confidentiality of Alcohol and Drug Abuse Patient Records regulations: The Federal rules restrict any use of the information to criminally investigate or prosecute any alcohol or drug abuse patient.[facility] the event this information is protected by the Federal Confidentiality of Alcohol and Drug Abuse Patient Records regulations: The Federal rules restrict any use of the information to criminally investigate or prosecute any alcohol or drug abuse patient.[facility] the event this information is protected by the Federal Confidentiality of Alcohol and Drug Abuse Patient Records regulations: The Federal rules restrict any use of the information to criminally investigate or prosecute any alcohol or drug abuse patient.[facility] the event this information is protected by the Federal Confidentiality of Alcohol and Drug Abuse Patient Records regulations: The Federal rules restrict any use of the information to criminally investigate or prosecute any alcohol or drug abuse patient.[facility] the event this information is protected by the Federal Confidentiality of Alcohol and Drug Abuse Patient Records regulations: The Federal rules restrict any use of the information to criminally investigate or prosecute any alcohol or drug abuse patient.[facility] the event this information is protected by the Federal Confidentiality of Alcohol and Drug Abuse Patient Records regulations: The Federal rules restrict any use of the information to criminally investigate or prosecute any alcohol or drug abuse patient.[facility] the event this information is protected by the Federal Confidentiality of Alcohol and Drug Abuse Patient Records regulations: The Federal rules restrict any use of the information to criminally investigate or prosecute any alcohol or drug abuse patient.[facility] the event this information is protected by the Federal Confidentiality of Alcohol and Drug Abuse Patient Records regulations: The Federal rules restrict any use of the information to criminally investigate or prosecute any alcohol or drug abuse patient.[facility] Center[facility] the event this information is protected by the Federal Confidentiality of Alcohol and Drug Abuse Patient Records regulations: The Federal rules restrict any use of the information to criminally investigate or prosecute any alcohol or drug abuse patient.[facility] Center[facility] the event this information is protected by the Federal Confidentiality of Alcohol and Drug Abuse Patient Records regulations: The Federal rules restrict any use of the information to criminally investigate or prosecute any alcohol or drug abuse patient.[facility] Center[facility] the event this information is protected by the Federal Confidentiality of Alcohol and Drug Abuse Patient Records regulations: The Federal rules restrict any use of the information to criminally investigate or prosecute any alcohol or drug abuse patient.[facility] Center[facility] the event this information is protected by the Federal Confidentiality of Alcohol and Drug Abuse Patient Records regulations: The Federal rules restrict any use of the information to criminally investigate or prosecute any alcohol or drug abuse patient.[facility] Center[facility] the event this information is protected by the Federal Confidentiality of Alcohol and Drug Abuse Patient Records regulations: The Federal rules restrict any use of the information to criminally investigate or prosecute any alcohol or drug abuse patient.[facility] Center[facility] the event this information is protected by the Federal Confidentiality of Alcohol and Drug Abuse Patient Records regulations: The Federal rules restrict any use of the information to criminally investigate or prosecute any alcohol or drug abuse patient.[facility] the event this information is protected by the Federal Confidentiality of Alcohol and Drug Abuse Patient Records regulations: The Federal rules restrict any use of the information to criminally investigate or prosecute any alcohol or drug abuse patient.[facility] the event this information is protected by the Federal Confidentiality of Alcohol and Drug Abuse Patient Records regulations: The Federal rules restrict any use of the information to criminally investigate or prosecute any alcohol or drug abuse patient.[facility] Care Teams (unrecognized sec tion and content) Principal Technical Writer Relationship Specialty Start Date End Date Efrem Cherry [address] [place], [place] [id number] PCP - General Family Practice 10/18/21 Principal Technical Writer Relationship Specialty Start Date End Date Efrem Cherry [address] [place] [address] [phone] PCP - General Family Practice 10/18/21 Principal Technical Writer Relationship Specialty Start Date End Date Efrem Cherry [address] [place] [address] [phone] PCP - General Family Practice 10/18/21 Principal Technical Writer Relationship Specialty Start Date End Date Efrem Cherry MD [address] [place], [place] [phone] PCP - General Family Medicine 10/18/21 Principal Technical Writer Relationship Specialty Start Date End Date Efrem Cherry MD [address] [place] [address] [phone] PCP - General Family Medicine 10/18/21 05/04/23 Reason for Visit (unrecogniz ed section and content) Reason Comments Insurance Authorization Ananya Krishnamurthyta 200 -25 mcg Reason Comments Established Patient Follow-Up Reason Comments Established Patient Follow-Up Reason Comments Refill Request Reason Comments Refill Request Reason Comments Recheck 6m f/u-SOB using inh aler alot Reason Comments Biometrics Consultant - Other Home WATERS Reason Comments Established Patient 6 wk f/u-pt states s he is doing okay, she still has breathing issues occasionaly Reason Comments Patient Question FOR RECORDS PERTAINING TO PATIENTS WHO ARE OR HAVE BEEN ENROLLED IN A CHEMICAL DEPENDENCY/SUBSTANCEABUSE PROGRAM, SOME INFORMATION MAY BE OMITTED. This clinical summary was aggregated from multiple sources. Caution should be exercised in using it in the provision of clinical care. This summary normalizes information from multiple sources, and as a consequence, information in this document may materially change the coding, format and clinical context of patient data. In addition, data may be omitted in some cases. CLINICAL DECISIONS SHOULD BE BASED ON THE PRIMARY CLINICAL RECORDS. [facility]. provides no warranty or guarantee of the accuracy or completeness of information in this document.
[2025-09-05] MEDS: Lactated Ringers 1,000 ML 15 ML IV (07:00)
--- NOTE | 2025-09-05 08:09 | PRE.ANES_ITS ---
ASA Classification* ASA Classification ASA Classification: 3 Assessment & Plan Anesthesia* Anesthesia Assessment Anesthesia Assessment: Discussed sedation and/or anesthesia options, risks, benefits, and alternatives with patient/parents/legal guardian/POA. Questions invited. The patient/parents/legal guardian/POA seems to understand and agrees to proceed with anesthesia plan. Reviewed the physical assessment, medical history, allergy history and patient home medications list prior to surgery/procedure/anesthetic and documented any changes. Performed airway and anesthesia risk assessments. Anesthesia Type Anesthesia Type: General (Consider GlideScope intubation to avoid the mass.) History Source History Obtained from:: Patient and Chart Anesthesia Focused Assessment* Temperature: 98.1 F Pulse Rate: 82 Respiratory Rate: 16 Pulse Ox: 98 Oxygen Delivery Method: Room Air Airway Assessment Mouth opens: >3 cm Mallampati Score: III Teeth Condition: Caps/Crowns (Patient is a cap. It is tight.) and Missing (Patient has a missing right lower molar. Rest are tight.) Neck Range of motion (ROM): Limited ROM (Slight Decrease) Labs Anesthesia Preop lab: CBC WBC, (4.4-11.0) 8.5 K/mm3 Today, 07:29 RBC, (4.2-5.4) 4.66 M/mm3 Today, 07:29 Hgb, (12.0-15.0) 13.6 g/dL Today, 07:29 Hct, (37-47) 41.5 % Today, 07:29 Plt Count, (150-450) 270 K/mm3 Today, 07:29 CHEMISTRY Potassium Pending Today, 07:29 Sodium Pending Today, 07:29 BUN Pending Today, 07:29 Creatinine Pending Today, 07:29 Glucose Pending Today, 07:29 COAG Pre-Assessment Diagnosis/Proposed Procedure Planned Operative Procedure(s): Excision oropharyngeal mass. 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 When Was Last Pacemaker Check QUESTION #4 FULL TEXT: You/Your Family Experience fever (hyperthermia) with Anesthesia Last Oral Intake Last Oral intake: Last Oral Intake NPO since 21:00 09/05/25 07:15 Meds taken in AM with sips of Yes 09/05/25 07:15 water? Meds patient instructed to albuterol inhaler 0515 09/05/25 07:15 take am of surgery PONV PONV - gauge and weigh machine adjuster: PONV - gauge and weigh machine adjuster Female HX of Motion Sickness HX of N/V After Surgery Non-Smoker Duration of Surgery greater than 60 minutes Number of Risk Factors PONV Score Height & Weight Height & Weight: Anesthesia: Height & Weight Height 5 ft 2 in 09/05/25 07:15 Weight: 127 kg 09/05/25 07:15 Body Mass Index (BMI) 51.2 09/05/25 07:15 Respiratory Assessment Respiratory Assessment - gauge and weigh machine adjuster: Respiratory Tract Infection Hx - gauge and weigh machine adjuster Hx Respiratory Tract Infection Any additional information?: Yes Hx Respiratory Tract Infection: No STOP Sleep Apnea STOP Sleep Apnea - gauge and weigh machine adjuster: STOP Sleep Apnea - gauge and weigh machine adjuster Hx Hypertension No 09/01/25 10:55 Hx Sleep Apnea No 09/01/25 10:55 CPAP BIPAP Do you snore loudly (louder than talking or can be heard Do you often feel tired/ fatigued/ sleepy during daytime? Has anyone observed you stop breathing during sleep? STOP Results QUESTION #5 FULL TEXT : Do you snore loudly (louder than talking or can be heard through closed doors)? 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 Specify any problems Hx of Preganancy in last 3 Months Nurse Filling Out Transfusion & Questions: Date: Time: Patient unable to answer at this time (ie. confused, unrespo /Reproduction History /Reproductive History - gauge and weigh machine adjuster: /Reproductive Hx- gauge and weigh machine adjuster Hx Now Gestational Age (in weeks): EDC: Hx Hx Para Hx Section SAB Active Medications Active Medications: Current Medications Generic Name Dose Route Start Last Admin Trade Name Freq PRN Reason Stop Dose Admin Lactated Ringer's 1,000 mls @ 15 mls/hr 09/05/25 07:00 09/05/25 07:00 IV 15 mls/hr .Q48H TINY Administration PFSH Medical History Easy bruising Back pain Migraine headache Former smoker Asthma Shortness of breath on exertion History of pain when walking Hx of perforation of tympanic membrane Home Medications ?Medication ?Instructions ?Recorded ?Last Taken ?Type albuterol sulfate 0.63 mg/3 mL 0.63 mg inhalation Q6H PRN PRN 09/01/25 09/04/25 05:15 History solution for nebulization wheezing albuterol sulfate 90 mcg/actuation 2 puff inhalation Q 6H PRN PRN 09/01/25 09/05/25 History aerosol inhaler shortness of breath or wheez ing cetirizine 10 mg tablet 10 mg PO DAILY 09/01/2504/24 History fluticasone fur. 200 mcg-umeclid 1 ea inhalation QHS 1 09/04/25 History 62.5 mcg-vilant 25 mcg inhalat.powder (Trelegy Ellipta) montelukast 10 mg tablet 10 mg PO QHS 09/01/25 History Allergy/AdvReac Type Severity Reaction Status Date / Time No Known Allergies Allergy Verified 09/05/25 05:42 Surgical History Hx of tubal ligation Hx of foot surgery Hx of dilation and curettage History of myringotomy Hx of adenoidectomy History of thumb surgery Social History Smoking Status: Former smoker Review of Systems (Anesthesia) ROS Narrative System reviewed and no additional complaints, except as documented. Physical Exam Resp clear to auscultation bilaterally
--- NOTE | 2025-09-05 08:30 | PHA_PTH ---
PATIENT: RAINE SOLOMON LOC: [facility] – [place] U#:[id number] AGE/SX: 40/F ROOM: RE09/05/[address]: Dr. Fabrice Lindsay MD : 1985 BED: DIS: 09/05/2025 SPEC #: [id number] RECD: 09/05/25 11:38 STATUS: ISSAC REMeme #: [id number] JOSIAH: 09/05/25 08:[address]: Fabrice Lindsay DEPT: SURGICAL PATHOLOGY RECD BY: Raul Love ENTERED: 09/05/25 13:10 SP TYPE: PHARYNX BX OTHR DR: No Primary Care Phys Tissues: Pharynx, NOS Procedures: Surgery Specimen Level IV HEADER OPERATION: Excision oropharyngeal mass PRE-OP DIAGNOSIS: Benign oropharyngeal mass TISSUE SUBMITTED: A- Oropharyngeal mass MICROSCOPIC DIAGNOSIS A. Oropharynx, mass, excision: * Benign squamous papilloma. MICROSCOPIC DESCRIPTION Slides are reviewed. GROSS DESCRIPTION A. Received in formalin labeled with the patient's name and date of . Designated as oropharyngeal mass is a 1.1 x 0.5 x 0.3 cm aggregate of pink-white to red tissue fragments. Entirely submitted in 1 cassette. MI 09/05/2025 CPT:54120
--- NOTE | 2025-09-05 08:39 | PCM.DC.SUM ---
Providers Primary Care Physician: No Primary Care Phys Medications at Discharge Home Medications albuterol sulfate 0.63 mg/3 mL solution for nebulization 0.63 mg inhalation Q6H PRN PRN wheezing 09/01/25 albuterol sulfate 90 mcg/actuation aerosol inhaler 2 puff inhalation Q6H PRN PRN shortness of breath or wheezing 09/01/25 cetirizine 10 mg tablet 10 mg PO DAILY 09/01/25 fluticasone fur. 200 mcg-umeclid 62.5 mcg-vilant 25 mcg inhalat.powder (Trelegy Ellipta) 1 ea inhalation QHS 09/01/25 montelukast 10 mg tablet 10 mg PO QHS 09/01/25 Weight / BMI Weight Weight: 127 kg Body Mass Index (BMI) 51.2 D/C Instructions Discharge Activity: Return to Normal Activity DC O2, CPAP, BIPAP Needs Home O2 Discharge instructions: No Please Follow Up With: Fabrice Lindsay MD When: 2 weeks Meaningful Use Info Meaningful Use Meaningful Use Diagnoses (Choose all that apply): None applicable Discharge Plan Admission Attending Provider: Fabrice Lindsay Primary Care Provider: Care Physician,No Primary Instructions Print Language: Albanian Discharge Orders/Prescriptions Prescriptions: No Action Trelegy Ellipta 200-62.5-25 mcg blister with device 1 ea inhalation QHS albuterol sulfate 90 mcg/actuation HFA aerosol inhaler 2 puff INHALATION Q6H PRN PRN (Reason: shortness of breath or wheezing) albuterol sulfate 0.63 mg/3 mL solution for nebulization 0.63 mg inhalation Q6H PRN PRN (Reason: wheezing) cetirizine 10 mg tablet 10 mg PO DAILY montelukast 10 mg tablet 10 mg PO QHS Referrals / Follow Up: Care Physician,No Primary [Primary Care Provider, Medical] Disposition Disposition (needs filled in before D/C Order can be placed): Home, Self Care
[2025-09-05] MEDS: Lidocaine 1% (5 ml sdv) 5 ML Vial 10 ML IV (08:43)
[2025-09-05] MEDS: fentaNYL 100 MCG/2 ML Ampul IV (08:43)
--- NOTE | 2025-09-05 08:49 | OP.PCM_ITS ---
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 She was placed in the supine position on the operating room table. She was given general endotracheal anesthesia. The table was turned 90 degrees in a clockwise fashion. A Eben mouthgag was inserted into the patient's mouth and the patient was suspended on a Duong stand. 1% lidocaine with epinephrine was injected into the uvula surrounding the neoplasm. I then made an elliptical incision around the mass with a 15 blade. I then used Metzenbaum scissors to excise the mass. This was sent for permanent section. I then repaired the mucosa with interrupted 4-0 chromic. All blood was suctioned from the oropharynx. I then irrigated the oropharynx and the irrigant was suctioned away. The instrumentation was then removed. The patient was awoken and brought to the recovery room in stable condition. Blood loss minimal, replacement none. Sponge, needle and instrument count were correct at the end of the procedure. Surgical Findings: mass on uvula Complications Complications: No
[2025-09-05] MEDS: Lidocaine 1% /Epi 1:100 (20ml) 20 ML Vial (08:55)
--- NOTE | 2025-09-05 09:30 | PCM.POST.ANE ---
Anesthesia: Postop Eval I Current Vital Signs Temperature: 97.5 F Pulse Rate: 75 Blood Pressure: 142/126 Respiratory Rate: 16 Pulse Ox: 98 Oxygen Delivery Method: Room Air Assessment Airway patent: Yes Spontaneous unlabored respirations: Yes Mental status: Awake and Calm nausea: No Vomiting: No Anesthesia Complication: No Fluid Hydration Crystalloid volume administer (ml): 600 Total IV fluid infused: 600 Progress Note Anesthesia document: Postop Eval 1 completed: Yes
--- NOTE | 2025-09-05 12:34 | POSTOPAN2_ITS ---
Anesthesia Postop Eval I Sum Postop Eval Completion status Anesthesia document: Postop Eval 1 completed: Yes Anesthesia Postop Eval I Summary Anesthesia Postop Eval I Summary: Anesthesia Postop Eval I: Assessment Summary Airway patent Yes 09/05/25 09:30 BONBON [email or web address] Spontaneous unlabored Yes 09/05/25 09:30 BONBON [email or web address] respirations Mental status Awake,Calm 09/05/25 09:30 BONBON [email or web address] nausea No 09/05/25 09:30 BONBON [email or web address].[email or web address] Vomiting No 09/05/25 09:30 BONBON [email or web address].[email or web address] Anesthesia Postop Eval I: Fluid Summary Crystalloid volume administer 600 09/05/25 09:30 BONBON [email or web address].[email or web address] (ml) Colloids volume administered ( ml) Blood Product volume administered (ml) Total IV fluid infused 600 09/05/25 09:30 BONBON [email or web address] Anesthesia Postop Eval I: Summary Notes Anesthesia Complication No 09/05/25 09:30 BONBON [email or web address] Anesthesia Complication Comment: Post-operative progress note Anesthesia: Postop Eval II Evaluation Mental status: Awake and Calm Pain Level: 1 nausea: No Vomiting: No Complications Anesthesia Complication: No
--- NOTE | 2025-09-05 12:34 | PCM.POSTANE2 ---
Anesthesia Postop Eval I Sum Postop Eval Completion status Anesthesia document: Postop Eval 1 completed: Yes Anesthesia Postop Eval I Summary Anesthesia Postop Eval I Summary: Anesthesia Postop Eval I: Assessment Summary Airway patent Yes 09/05/25 09:30 GAS PLANT [email or web address].[email or web address] Spontaneous unlabored Yes 09/05/25 09:30 GAS PLANT SPECIALIST.ZAC respirations Mental status Awake,Calm 09/05/25 09:30 GAS PLANT [email or web address].[email or web address] nausea No 09/05/25 09:30 GAS PLANT SPECIALIST.[email or web address] Vomiting No 09/05/25 09:30 GAS PLANT SPECIALIST.[email or web address] Anesthesia Postop Eval I: Fluid Summary Crystalloid volume administer 600 09/05/25 09:30 GAS PLANT SPECIALIST.SJAN (ml) Colloids volume administered ( ml) Blood Product volume administered (ml) Total IV fluid infused 600 09/05/25 09:30 GAS PLANT [email or web address].ZAC Anesthesia Postop Eval I: Summary Notes Anesthesia Complication No 09/05/25 09:30 GAS PLANT SPECIALIST.ZAC Anesthesia Complication Comment: Post-operative progress note Anesthesia: Postop Eval II Evaluation Mental status: Awake and Calm Pain Level: 1 nausea: No Vomiting: No Complications Anesthesia Complication: No
== END 2025-09-05 11:15 | disposition home or self-care (01) ==
LOC: SDC 06:52 → AC 06:53
PROVIDERS: Referring Provider Otolaryngology; Visit Provider Otolaryngology
PROC: (CPT 42106; principal; 2025-09-05 08:15)
DX: D10.5 Benign neoplasm of other parts of oropharynx (principal); Z79.51 Long term (current) use of inhaled steroids; J45.909 Unspecified asthma, uncomplicated; Z87.891 Personal history of nicotine dependence
CPT/HCPCS: 42106; 00170; 88304; 88305; J2405